=== PATIENT | male | born 1965 | race Hispanic/Latino ===

== ENCOUNTER 2017-09-17 19:38 | Emergency (ER) | payer OTHER ==
--- NOTE | 2017-09-17 20:21 | ER ---
Nurse's Notes [facility] Name: Christopher Cruz Age: 52 yrs Sex: Male : 1965 Arrival Date: 09/17/2017 Time: 19:42 Bed 12 Private MD: Diagnosis: Tooth Pain Presentation: 09/17 20:04 Presenting complaint: Patient states: Right upper tooth pain since last night. Broken aj tooth noted. No swelling at this time. Transition of care: patient was not received from another setting of care. Onset of symptoms was September 16, 2017. Initial Sepsis Screen: Does the patient meet any 2 criteria? No. Patient's initial sepsis screen is negative. Does the patient have a suspected source of infection? No. Patient's initial sepsis screen is negative. Care prior to arrival: None. 20:04 Method Of Arrival: Ambulatory aj 20:04 Acuity: MONICA 5 aj Triage Assessment: 20:05 General: Appears in no apparent distress. comfortable, Behavior is calm, cooperative, aj appropriate for age. Pain: Complains of pain in face and upper right third molar. EENT: Reports pain in mouth. Neuro: Level of Consciousness is awake, alert, obeys commands, Oriented to person, place, time, situation, Appropriate for age. Respiratory: Airway is patent Respiratory effort is even, unlabored, Respiratory pattern is regular, symmetrical. Derm: Skin is intact, is healthy with good turgor, Skin is pink, warm \T\ dry. normal. Historical: - Allergies: 20:05 No Known Allergies; aj - Home Meds: 20:05 buspirone 15 mg Oral tab 1 tab 2 times per day [Active]; duloxetine 30 mg Oral cpDR 1 aj cap 3 times [Active]; furosemide 20 mg Oral tab 1 tab once daily [Active]; pravastatin 40 mg Oral tab 1 tab once daily [Active]; gabapentin 300 mg Oral cap 1 cap 3 times per day [Active]; tizanidine 4 mg Oral cap 1 cap 3 times per day [Active]; - PMHx: 20:05 Diabetes - IDDM; Hypertension; aj - PSHx: 20:05 None; aj - Immunization history:: Adult Immunizations up to date. - Social history:: Smoking status: Patient uses tobacco products, denies chronic smoking, but will smoke occasionally. Screenin:39 Abuse screen: Denies threats or abuse. Denies injuries from another. Nutritional aj screening: No deficits noted. Tuberculosis screening: No symptoms or risk factors identified. Fall Risk None identified. Assessment: 20:39 Reassessment: see triage. aj Vital Signs: 20:05 BP 106 / 65; Pulse 88; Resp 17; Temp 98.3; Pulse Ox 96% on R/A; Weight 108.86 kg; aj Height 5 ft. 7 in. (170.18 cm); Pain 8/10; 20:05 Body Mass Index 37.59 (108.86 kg, 170.18 cm) aj ED Course: 19:42 Patient arrived in ED. ds1 20:04 Triage completed. aj 20:05 Arm band placed on left wrist. Patient placed in waiting room. aj 20:08 Driss Ward PA is PHCP. cp 20:08 Danilo Petersen MD is Attending Physician. cp 20:20 Santi Gonzalez DDS is Referral Physician. cp 20:39 Suri Olivares RN is Primary Nurse. aj 20:39 Patient has correct armband on for positive identification. aj 20:39 No provider procedures requiring assistance completed. Patient did not have IV access aj during this emergency room visit. Administered Medications: No medications were administered Outcome: 20:21 Discharge ordered by MD. cp 20:39 Discharged to home ambulatory, with family. aj 20:39 Condition: good 20:39 Discharge instructions given to patient, Instructed on discharge instructions, follow up and referral plans. medication usage, Demonstrated understanding of instructions, follow-up care, medications, Prescriptions given X 2. 20:39 Patient left the ED. aj Signatures: Suri Olivares, RN RN Gabriela Cho ds1 Driss Ward PA PA cp
--- NOTE | 2017-09-17 20:22 | EDPHYS ---
Physician Documentation [facility] Name: Christopher Cruz Age: 52 yrs Sex: Male : 1965 Arrival Date: 09/17/2017 Time: 19:42 Bed 12 Private MD: ED Physician Danilo Petersen HPI: 09/17 20:19 This 52 yrs old Male presents to ER via Ambulatory with complaints of cp Toothache. 20:19 The patient presents with pain. The problem is located in the upper right molar. Onset: cp The symptoms/episode began/occurred yesterday. Duration: The symptoms are continuous, and are unchanged since they started. Associated signs and symptoms: Pertinent negatives: anorexia, chills, dysphagia, fever, inability to eat. Historical: - Allergies: 20:05 No Known Allergies; aj - Home Meds: 20:05 buspirone 15 mg Oral tab 1 tab 2 times per day [Active]; duloxetine 30 mg Oral cpDR 1 aj cap 3 times [Active]; furosemide 20 mg Oral tab 1 tab once daily [Active]; pravastatin 40 mg Oral tab 1 tab once daily [Active]; gabapentin 300 mg Oral cap 1 cap 3 times per day [Active]; tizanidine 4 mg Oral cap 1 cap 3 times per day [Active]; - PMHx: 20:05 Diabetes - IDDM; Hypertension; aj - PSHx: 20:05 None; aj - Immunization history:: Adult Immunizations up to date. - Social history:: Smoking status: Patient uses tobacco products, denies chronic smoking, but will smoke occasionally. ROS: 20:20 Constitutional: Negative for body aches, chills, fever, poor PO intake. cp 20:20 Eyes: Negative for injury, pain, redness, and discharge. cp 20:20 ENT: Positive for dental pain, Negative for drainage from ear(s), ear pain, sore throat, difficulty swallowing, difficulty handling secretions. 20:20 Neck: Negative for pain with movement, pain at rest, stiffness, swollen nodes. 20:20 Respiratory: Negative for cough, shortness of breath, wheezing. 20:20 Abdomen/GI: Negative for abdominal pain, vomiting, diarrhea, constipation. 20:20 Skin: Negative for cellulitis, rash. 20:20 Neuro: Positive for headache, Negative for dizziness, weakness. 20:20 All other systems are negative. Exam: 20:20 Constitutional: The patient appears in no acute distress, alert, awake, non-toxic, well cp developed, well nourished. 20:20 Head/Face: Normocephalic, atraumatic. cp 20:20 Eyes: Periorbital structures: appear normal, Pupils: equal, round, and reactive to light and accomodation, Conjunctiva: normal, no exudate, no injection, Lids and lashes: appear normal, bilaterally. 20:20 ENT: External ear(s): are unremarkable, Ear canal(s): are normal, clear, TM's: dullness, bilaterally, Nose: is normal, Mouth: Lips: moist, Oral mucosa: pink and intact, moist, Tongue: is normal, abscess, is not appreciated, Posterior pharynx: Airway: no evidence of obstruction, patent, Tonsils: are normal in appearance, Uvula: midline, non-edematous, no erythema, swelling, is not appreciated, erythema, is not appreciated, exudate, is not appreciated, Dental exam: abscess, is not appreciated, dental caries, that is moderate, diffusely, fractured teeth are noted, diffusely, gum swelling, that is mild, specifically in the right upper molar area, missing teeth, diffusely, pain, that is mild, specifically in the upper right second molar (#2), Voice: is normal. 20:20 Neck: ROM/movement: is normal, is supple, without pain, no range of motions limitations, no nuchal rigidity, Lymph nodes: no appreciated lymphadenopathy. 20:20 Chest/axilla: Inspection: normal, Palpation: is normal, no crepitus, no tenderness. 20:20 Cardiovascular: Rate: normal, Rhythm: regular. 20:20 Respiratory: the patient does not display signs of respiratory distress, Respirations: normal, no use of accessory muscles, no retractions, no splinting, no tachypnea, labored breathing, is not present, Breath sounds: are clear throughout, no decreased breath sounds, no stridor, no wheezing. 20:20 Abdomen/GI: Exam negative for discomfort, distension, guarding, Inspection: abdomen appears normal. 20:20 Skin: cellulitis, is not appreciated, no rash present. Vital Signs: 20:05 BP 106 / 65; Pulse 88; Resp 17; Temp 98.3; Pulse Ox 96% on R/A; Weight 108.86 kg; aj Height 5 ft. 7 in. (170.18 cm); Pain 8/10; 20:05 Body Mass Index 37.59 (108.86 kg, 170.18 cm) aj MDM: 20:08 Patient medically screened. cp 20:20 Differential diagnosis: dental caries, gingivitis, dental abscess, pericoronitis, cp gingivostomatitis. 20:21 Data reviewed: vital signs, nurses notes, and as a result, I will discharge patient. cp Administered Medications: No medications were administered Disposition: 09/17/17 20:21 Discharged to Home. Impression: Tooth Pain. - Condition is Stable. - Discharge Instructions: Dental Pain. - Prescriptions for Amoxicillin 875 mg Oral Tablet - take 1 tablet by ORAL route every 12 hours for 10 days; 20 tablet. Naprosyn 500 mg Oral Tablet - take 1 tablet by ORAL route 2 times per day take with food; 20 tablet. - Medication Reconciliation Form, Thank You Letter, Antibiotic Education, Prescription Opioid Use form. - Follow up: Santi Gonzalez DDS; When: 1 - 2 days; Reason: Recheck today's complaints. - Problem is new. - Symptoms are unchanged. Addendum: 09/22/2017 10:45 Co-signature as Attending Physician, Danilo Petersen MD. g s Signatures: Suri Olivares, RN RN Driss Pat PA PA cp Starr, Gregory, MD MD
[2017-09-17 20:45] VITALS: BP 106/65; TEMP 98.3; O2SAT 96
== END 2017-09-17 20:39 | disposition home or self-care (01) ==
LOC: ER 19:38
DX: K08.89 Other specified disorders of teeth and supporting structures (principal); I10 Essential (primary) hypertension; E11.9 Type 2 diabetes mellitus without complications; Z72.0 Tobacco use
CPT/HCPCS: 99282

== ENCOUNTER 2018-01-08 08:53 | Emergency (ER) | payer OTHER ==
[2018-01-08] MEDS ORDERED: NA CHLORIDE 0.9% 2,000 ML ONE (09:18)
[2018-01-08 09:41] LABS: Absolute Lymphocytes (CBC) 3.2 K/uL (0.7-4.9); Absolute Monocytes 0.8 K/uL (0.1-1.3); Absolute Neutrophil 6.9 K/uL (1.8-8.0); Basophils % 0.5 % (0-1.3); Eosinophils % 1.3 % (0-4.4); Hematocrit 43.7 % (39.6-49.0); Lymphocytes % 28.9 % (15.3-44.8); MCH 28.6 pg (27.0-35.0); MCV 84.7 fL (80-100); MPV 8.5 fL (7.6-11.3); Monocytes % 7.6 % (3.3-12.3); RBC Red Blood Cell Count 5.16 M/uL (4.33-5.43)
[2018-01-08 09:47] LABS: Protime INR 0.98
[2018-01-08 10:02] LABS: Albumin 3.5 g/dL (3.4-5.0); Bilirubin Total 0.5 mg/dL (0.2-1.0); Magnesium 2.7 mg/dL (1.8-2.4); Potassium 5.3 mmol/L (3.5-5.1); Protein, Total 7.8 g/dL (6.4-8.2)
--- NOTE | 2018-01-08 11:01 | RAD REPORT ---
EXAM DESCRIPTION: RAD - Chest Single View - 01/08/2018 9:25 am CLINICAL HISTORY: Cough and congestion COMPARISON: March 2017 TECHNIQUE: AP portable chest image was obtained 0921 hours . FINDINGS: Lungs are clear. Lung markings are similar to comparison. Heart and vasculature are normal . No measurable pleural effusion and no pneumothorax. No gross bony abnormality seen. No acute aortic findings suspected. IMPRESSION: No acute cardiopulmonary process. No significant interval change.
[2018-01-08] MEDS ORDERED: ACETAMINOPHEN 325 MG TABLET ONE (12:36)
--- NOTE | 2018-01-08 13:20 | EDPHYS ---
Physician Documentation [facility] Name: Christopher Cruz Age: 52 yrs Sex: Male : 1965 Arrival Date: 01/08/2018 Time: 08:55 Bed 20 Private MD: Juan Mcclendon ED Physician Harsha Valle HPI: 01/08 09:15 This 52 yrs old Male presents to ER via Ambulatory with complaints of Flu ps1 Symptoms. 09:15 patient states that he has had sinus congestion for last couple of days and has not ps1 been eating or drinking. He states that he has had chills and has been bundled up under blankets. He took a shower and then felt lightheaded. He was hypotensive on arrival to ED. Does not appear in distress otherwise. Not currently symptomatic other than sinus congestion. He does have a history of IDDM and hypertension but has not taken his medication. Denies CP, tightness, pressure. . Historical: - Allergies: 09:08 No Known Allergies; em - PMHx: 09:08 Diabetes - IDDM; Hypertension; em - PSHx: 09:08 None; em - Immunization history:: Adult Immunizations up to date. - Social history:: Smoking status: Patient uses tobacco products, denies chronic smoking, but will smoke occasionally. - Ebola Screening: : Patient negative for fever greater than or equal to 101.5 degrees Fahrenheit, and additional compatible Ebola Virus Disease symptoms Patient denies exposure to infectious person Patient denies travel to an Ebola-affected area in the 21 days before illness onset No symptoms or risks identified at this time. ROS: 09:15 Cardiovascular: Negative for chest pain, palpitations, and edema, Respiratory: Negative ps1 for shortness of breath, cough, wheezing, and pleuritic chest pain, Abdomen/GI: Negative for abdominal pain, nausea, vomiting, diarrhea, and constipation, MS/Extremity: Negative for injury and deformity, Skin: Negative for injury, rash, and discoloration, Neuro: Negative for headache, weakness, numbness, tingling, and seizure. 09:15 Constitutional: Positive for body aches, chills, fever. 09:15 ENT: Positive for sinus congestion. Exam: 09:15 Constitutional: This is a well developed, well nourished patient who is awake, alert, ps1 and in no acute distress. Head/Face: Normocephalic, atraumatic. Eyes: Pupils equal round and reactive to light, extra-ocular motions intact. Lids and lashes normal. Conjunctiva and sclera are non-icteric and not injected. Chest/axilla: Normal chest wall appearance and motion. Nontender with no deformity. No lesions are appreciated. Cardiovascular: Regular rate and rhythm. No gallops, murmurs, or rubs. Normal PMI, no JVD. No pulse deficits. Respiratory: Lungs have equal breath sounds bilaterally, clear to auscultation and percussion. No rales, rhonchi or wheezes noted. No increased work of breathing, no retractions or nasal flaring. Abdomen/GI: Soft, non-tender, with normal bowel sounds. No distension or tympany. No guarding or rebound. No evidence of tenderness throughout. Skin: Warm, dry with normal turgor. Normal color with no rashes, no lesions, and no evidence of cellulitis. MS/ Extremity: Pulses equal, no cyanosis. Neurovascular intact. Full, normal range of motion. Neuro: Awake and alert, GCS 15, oriented to person, place, time, and situation. Cranial nerves II-XII grossly intact. Sensory grossly intact. Psych: Awake, alert, with orientation to person, place and time. Behavior, mood, and affect are within normal limits. Vital Signs: 09:08 BP 84 / 53; Pulse 96; Resp 18; Temp 99.0(O); Pulse Ox 100% on R/A; Weight 104.33 kg; em Height 5 ft. 7 in. (170.18 cm); Pain 0/10; 09:10 BP 87 / 53 LA Supine (auto/reg); Pulse 89 MON; em1 09:12 BP 85 / 43 LA Sitting (auto/reg); Pulse 92 MON; em1 09:15 BP 69 / 46 LA Standing (auto/reg); Pulse 95 MON; em1 09:25 BP 76 / 52; Pulse 86; Pulse Ox 96% on R/A; em 09:51 BP 86 / 55 Supine; Pulse 83; Resp 16; Pulse Ox 95% on R/A; em 10:03 BP 92 / 54; Pulse 82; Resp 15; Temp 98.6(O); Pulse Ox 94% on R/A; Pain 0/10; em 10:36 BP 116 / 67; Pulse 77; Resp 18; Pulse Ox 98% on R/A; Pain 0/10; em 11:35 BP 137 / 78; Pulse 78; Resp 18; Pulse Ox 99% on R/A; Pain 0/10; em 12:30 BP 137 / 78; Pulse 74; Resp 18; Pulse Ox 99% on R/A; em 13:30 BP 137 / 72; Pulse 73; Resp 16; Pulse Ox 98% on R/A; Pain 0/10; em 09:08 Body Mass Index 36.02 (104.33 kg, 170.18 cm) em MDM: 09:18 Patient medically screened. ps1 13:20 Data reviewed: vital signs, nurses notes. Counseling: I had a detailed discussion with ps1 the patient and/or guardian regarding: the historical points, exam findings, and any diagnostic results supporting the discharge/admit diagnosis, lab results, radiology results, the need for outpatient follow up, an staffing manager, to return to the emergency department if symptoms worsen or persist or if there are any questions or concerns that arise at home. ED course: patient received 2L NS and BP corrected and patient is currently asymptomatic. Patient stable for discharge and [facility] /. 01/08 09:13 Order name: CBC with Diff; Complete Time: 10:36 ps1 01/08 09:13 Order name: Magnesium; Complete Time: 10:36 ps1 01/08 09:13 Order name: NT PRO-BNP; Complete Time: 10:36 ps1 01/08 09:13 Order name: PT-INR; Complete Time: 10:36 ps1 01/08 09:13 Order name: Troponin (emerg Dept Use Only); Complete Time: 10:36 ps1 01/08 09:13 Order name: CMP; Complete Time: 10:36 ps1 01/08 09:13 Order name: XRAY Chest (1 view); Complete Time: 12:15 ps1 01/08 09:13 Order name: EKG; Complete Time: 09:14 ps1 01/08 09:13 Order name: Cardiac monitoring; Complete Time: 09:34 ps1 01/08 09:13 Order name: EKG - Nurse/Tech; Complete Time: 09:34 ps1 01/08 09:13 Order name: Lactate; Complete Time: 10:36 ps1 01/08 13:02 Order name: Lactate Sepsis 2 HR Follow-up; Complete Time: 13:17 EDNE 01/08 09:13 Order name: IV Saline Lock; Complete Time: :34 ps1 01/08 09:13 Order name: Labs collected and sent; Complete Time: 09:34 ps1 01/08 09:13 Order name: O2 Per Protocol; Complete Time: 09:34 ps1 01/08 09:13 Order name: O2 Sat Monitoring; Complete Time: 09:35 ps1 01/08 09:13 Order name: Orthostatic Blood Pressure; Complete Time: :34 ps1 Administered Medications: 09:34 Drug: NS 0.9% (20 ml/kg) 20 ml/kg Route: IV; Rate: 1 bolus; Site: right antecubital; em 10:45 Follow up: IV Status: Completed infusion; IV Intake: 2000ml em 12:41 Drug: Tylenol 650 mg Route: PO; em 13:34 Follow up: Response: No adverse reaction; Pain is decreased em Disposition: 01/08/18 13:19 Discharged to Home. Impression: Dehydration, Viral syndrome. - Condition is Stable. - Discharge Instructions: Dehydration, Adult. - Medication Reconciliation Form, Thank You Letter, Antibiotic Education, Prescription Opioid Use form. - Follow up: Juan Mcclendon DO; When: As needed; Reason: Recheck today's complaints, Continuance of care, Re-evaluation by your physician. Follow up: Emergency Department; When: As needed; Reason: Fever > 102 F, Trouble breathing, Worsening of condition. - Problem is new. - Symptoms are resolved. Signatures: Dispatcher [employer] EDNE Vincent Cabezas, DRAFTING ENGINEER DRAFTING ENGINEER em Harsha Valle MD MD ps1 Corrections: (The following items were deleted from the chart) 13:34 09:13 Urine Dipstick-Ancillary ordered. ps1 em 13:40 13:19 01/08/2018 13:19 Discharged to Home. Impression: Dehydration; Viral syndrome. em Condition is Stable. Forms are Medication Reconciliation Form, Thank You Letter, Antibiotic Education, Prescription Opioid Use. Follow up: Juan Mcclendon; When: As needed; Reason: Recheck today's complaints, Continuance of care, Re-evaluation by your physician. Follow up: Emergency Department; When: As needed; Reason: Fever > 102 F, Trouble breathing, Worsening of condition. Problem is new. Symptoms are resolved. ps1
--- NOTE | 2018-01-08 13:20 | ER ---
Nurse's Notes [facility] Name: Christopher Cruz Age: 52 yrs Sex: Male : 1965 Arrival Date: 01/08/2018 Time: 08:55 Bed 20 Private MD: Juan Mcclendon Diagnosis: Dehydration;Viral syndrome Presentation: 01/08 09:05 Presenting complaint: Patient states: I think I have the flu, been stuffy for the past em 2 days laying in bed, broke out in sweats, denies fever, denies pain. Transition of care: patient was not received from another setting of care. Onset of symptoms was January 06, 2018. Risk Assessment: Do you want to hurt yourself or someone else? Patient reports no desire to harm self or others. Initial Sepsis Screen: Does the patient meet any 2 criteria? HR > 90 bpm. Does the patient have a suspected source of infection? No. Patient's initial sepsis screen is negative. Care prior to arrival: None. 09:05 Method Of Arrival: Ambulatory em 09:36 Acuity: MONICA 2 la1 Triage Assessment: 09:08 General: Appears in no apparent distress. comfortable, Behavior is calm, cooperative. em Pain: Denies pain. Historical: - Allergies: 09:08 No Known Allergies; em - PMHx: 09:08 Diabetes - IDDM; Hypertension; em - PSHx: 09:08 None; em - Immunization history:: Adult Immunizations up to date. - Social history:: Smoking status: Patient uses tobacco products, denies chronic smoking, but will smoke occasionally. - Ebola Screening: : Patient negative for fever greater than or equal to 101.5 degrees Fahrenheit, and additional compatible Ebola Virus Disease symptoms Patient denies exposure to infectious person Patient denies travel to an Ebola-affected area in the 21 days before illness onset No symptoms or risks identified at this time. Screenin:10 Abuse screen: Denies threats or abuse. Nutritional screening: No deficits noted. em Tuberculosis screening: No symptoms or risk factors identified. Fall Risk None identified. Assessment: 09:05 General: Appears in no apparent distress. comfortable, Behavior is calm, cooperative, em Reports chills for 1-2 days, Denies fever. Pain: Denies pain. Neuro: Level of Consciousness is awake, alert, obeys commands, Oriented to person, place, time, situation, Reports dizziness. Cardiovascular: Denies chest pain, nausea, vomiting, Capillary refill < 3 seconds Rhythm is regular. Respiratory: Airway is patent Respiratory effort is even, unlabored, Respiratory pattern is regular, symmetrical, Breath sounds are clear bilaterally. GI: Abdomen is round. : No signs and/or symptoms were reported regarding the genitourinary system. EENT: Reports nasal congestion Denies sore throat. Derm: Skin is intact, Skin is clammy, Skin is normal. Musculoskeletal: Range of motion: intact in all extremities. 09:10 General: The previous assessment is accurate, call light remains within reach. . ss 10:00 Reassessment: Patient appears in no apparent distress at this time. Patient and/or em family updated on plan of care and expected duration. Pain level reassessed. pt BP low, pt c/o dizziness is not improved, Dr. Valle notified, new orders received. 10:35 Reassessment: Patient appears in no apparent distress at this time. Patient and/or em family updated on plan of care and expected duration. Pain level reassessed. Patient is alert, oriented x 3, equal unlabored respirations, skin warm/dry/pink. Patient states feeling better. Patient states symptoms have improved. 11:30 Reassessment: Patient appears in no apparent distress at this time. Patient and/or em family updated on plan of care and expected duration. Pain level reassessed. Patient is alert, oriented x 3, equal unlabored respirations, skin warm/dry/pink. Patient states symptoms have improved. 12:27 Reassessment: Patient appears in no apparent distress at this time. Patient and/or em family updated on plan of care and expected duration. Pain level reassessed. Patient is alert, oriented x 3, equal unlabored respirations, skin warm/dry/pink. repeated lactate, pending results, c/o of a mild headache, Dr. Valle notified Patient states feeling better. 13:31 Reassessment: Patient appears in no apparent distress at this time. Patient and/or em family updated on plan of care and expected duration. Pain level reassessed. Patient is alert, oriented x 3, equal unlabored respirations, skin warm/dry/pink. Patient denies pain at this time. Patient states feeling better. Patient states symptoms have improved. Vital Signs: 09:08 BP 84 / 53; Pulse 96; Resp 18; Temp 99.0(O); Pulse Ox 100% on R/A; Weight 104.33 kg; em Height 5 ft. 7 in. (170.18 cm); Pain 0/10; 09:10 BP 87 / 53 LA Supine (auto/reg); Pulse 89 MON; em1 09:12 BP 85 / 43 LA Sitting (auto/reg); Pulse 92 MON; em1 09:15 BP 69 / 46 LA Standing (auto/reg); Pulse 95 MON; em1 09:25 BP 76 / 52; Pulse 86; Pulse Ox 96% on R/A; em 09:51 BP 86 / 55 Supine; Pulse 83; Resp 16; Pulse Ox 95% on R/A; em 10:03 BP 92 / 54; Pulse 82; Resp 15; Temp 98.6(O); Pulse Ox 94% on R/A; Pain 0/10; em 10:36 BP 116 / 67; Pulse 77; Resp 18; Pulse Ox 98% on R/A; Pain 0/10; em 11:35 BP 137 / 78; Pulse 78; Resp 18; Pulse Ox 99% on R/A; Pain 0/10; em 12:30 BP 137 / 78; Pulse 74; Resp 18; Pulse Ox 99% on R/A; em 13:30 BP 137 / 72; Pulse 73; Resp 16; Pulse Ox 98% on R/A; Pain 0/10; em 09:08 Body Mass Index 36.02 (104.33 kg, 170.18 cm) em ED Course: 08:55 Patient arrived in ED. sb2 08:55 Juan Mcclendon DO is Private Physician. sb2 09:05 Harsha Valle MD is Attending Physician. ps1 09:05 Vincent Cabezas LVN is Primary Nurse. em 09:10 Patient has correct armband on for positive identification. Placed in gown. Bed in low em position. Call light in reach. Side rails up X2. 09:10 No provider procedures requiring assistance completed. em 09:11 Arm band placed on. em 09:22 X-ray completed. Portable x-ray completed in exam room. Patient tolerated procedure ag1 well. 09:23 XRAY Chest (1 view) In Process Unspecified. EDMS 09:36 Triage completed. la1 09:53 EKG done, by senior director of global commercial technology solutions. reviewed by Harsha Valle MD. at1 13:19 Juan Mcclednon DO is Referral Physician. ps1 13:33 IV discontinued, intact, bleeding controlled, No redness/swelling at site. Pressure em dressing applied. Administered Medications: 09:34 Drug: NS 0.9% (20 ml/kg) 20 ml/kg Route: IV; Rate: 1 bolus; Site: right antecubital; em 10:45 Follow up: IV Status: Completed infusion; IV Intake: 2000ml em 12:41 Drug: Tylenol 650 mg Route: PO; em 13:34 Follow up: Response: No adverse reaction; Pain is decreased em Intake: 10:45 IV: 2000ml; Total: 2000ml. em Outcome: 13:19 Discharge ordered by MD. ps1 13:32 Discharged to home ambulatory. em 13:32 Condition: good 13:32 Discharge instructions given to patient, Instructed on discharge instructions, follow up and referral plans. Demonstrated understanding of instructions, follow-up care. 13:40 Patient left the ED. em Signatures: Dispatcher [employer] EDMS Vincent Cabezas, PIE FILLING MIXER PIE FILLING MIXER em Loki Armenta em1 Viktoriya Choudhury RN RN ss gonzales, Amanda, regulatory affairs associate EKG Tat1 Drake Morrell RN RN la1 Tigist Santos ag1 Harsha Valle MD MD ps1 Amy Du sb2 Corrections: (The following items were deleted from the chart) 10:02 09:51 BP 86 / 55; Pulse 83bpm; Resp 16bpm; Pulse Ox 95% RA; em em
--- NOTE | 2018-01-08 13:43 | EKG ---
Test Date: 2018-01-08 Test Time: 09:30:28 Senior Information Security Consultant: KIM MEASUREMENT RESULTS: Intervals: Rate: 87 AK: 152 QRSD: 80 QT: 366 QTc: 440 [place]: P: 20 AK: 152 QRS: 44 T: 47 INTERPRETIVE STATEMENTS: Normal sinus rhythm Normal ECG Compared to ECG 03/12/2017 04:56:43 No significant changes Electronically Signed On 01-08-18 13:42:59 CDT by Srikanth Mchuhg
[2018-01-08 13:52] VITALS: TEMP 98.6
[2018-01-08 13:57] VITALS: BP 137/72; O2SAT 98
== END 2018-01-08 13:40 | disposition home or self-care (01) ==
LOC: ER 08:53
DX: E86.0 Dehydration (principal); B34.9 Viral infection, unspecified; I10 Essential (primary) hypertension; Z72.0 Tobacco use
CPT/HCPCS: 36415; 71045; 80053; 83605 ×2; 83735; 83880; 84484; 85025; 85610; 93005; 96360; 99284; J7030

== ENCOUNTER 2019-01-08 20:44 | Emergency (ER) | payer OTHER ==
--- OUTSIDE RECORDS SUMMARY | 2019-01-08 20:47 | XMS REPORT ---
:1965 [facility] Address [address] [place] [address] Dr. Haddad [address] [place] [id number] Care Team Providers Name Role Phone Unavailable Unavailable Unavailable Problems This patient has no known problems. Allergies, Adverse Reactions, Alerts This patient has no known allergies or adverse reactions. Medications This patient has no known medications.
[2019-01-08] MEDS ORDERED: NA CHLORIDE 0.9% 1,000 ML ONE ×2 (21:44→22:09)
[2019-01-08] MEDS ORDERED: TETANUS & DIPHTHERIA TOX,ADULT 0.5 ML VIAL ONE (21:44)
[2019-01-08 21:51] LABS: Absolute Lymphocytes (CBC) 3.7 K/uL (0.7-4.9); Basophils % 0.8 % (0-1.3); Hematocrit 45.8 % (39.6-49.0); Lymphocytes % 27.1 % (15.3-44.8); MPV 9.7 fL (7.6-11.3); RBC Red Blood Cell Count 5.46 M/uL (4.33-5.43)
[2019-01-08 22:03] LABS: Protime INR 0.95
[2019-01-08 22:08] LABS: ALT/SGPT 51 U/L (12-78); AST/SGOT 15 U/L (15-37); Albumin 3.6 g/dL (3.4-5.0); Alkaline Phosphatase 108 U/L (45-117); BUN Blood Urea Nitrogen 26 mg/dL (7-18); Bicarbonate 31 mmol/L (21-32); Bilirubin Direct 0.1 mg/dL (0-0.2); Bilirubin Total 0.3 mg/dL (0.2-1.0); Glucose Level 110 mg/dL (74-106); Magnesium 2.5 mg/dL (1.8-2.4); NT PRO-BNP 94 pg/mL (<125); Potassium 5.1 mmol/L (3.5-5.1); Sodium Level 141 mmol/L (136-145); Troponin (Emerg Dept Use Only) < 0.02 ng/mL (0.0-0.045)
[2019-01-08] MEDS ORDERED: ONDANSETRON 4 MG/2 ML VIAL ONE (22:09)
[2019-01-09] MEDS ORDERED: NA CHLORIDE 0.9% 1,000 ML ONE (01:10)
[2019-01-09] MEDS ORDERED: MECLIZINE HCL 12.5 MG TAB ONE (02:17)
--- NOTE | 2019-01-09 03:14 | EDPHYS ---
Physician Documentation [facility] Name: Christopher Cruz Age: 53 yrs Sex: Male : 1965 Arrival Date: 01/08/2019 Time: 20:47 Bed 8 Private MD: Juan Mcclendon ED Physician Danilo Petersen HPI: 01/08 21:30 This 53 yrs old Male presents to ER via Wheelchair with complaints of Fall pm1 Injury, Head Injury-Adult, black out,diabetic. 21:30 The patient has experienced syncope, collapsed. Onset: The symptoms/episode pm1 began/occurred today. Duration:. Context: occurred at home, occurred while the patient was standing, Just prior to the episode the patient experienced dizziness. Associated injury: Head/face: left side of the back of head, laceration. Associated signs and symptoms: Pertinent positives: diarrhea, vomiting, Pertinent negatives: chest pain, shortness of breath. The patient has not experienced similar symptoms in the past. The patient has not recently seen a physician, the patient's primary care provider is Dr. Mcclendon. Patient presenting with syncope and head laceration. He has had vomiting and diarrhea for the past 2 days. Today patient with two episodes of falling down and hitting his head. No chest pain or shortness of breath. Historical: - Allergies: 20:56 No Known Allergies; la1 - PMHx: 20:56 Diabetes - IDDM; Hypertension; la1 - Immunization history:: Adult Immunizations up to date. - Social history:: Smoking status: Patient/guardian denies using tobacco. - Ebola Screening: : No symptoms or risks identified at this time. ROS: 21:30 Constitutional: Negative for fever, chills, and weight loss, Eyes: Negative for injury, pm1 pain, redness, and discharge, ENT: Negative for injury, pain, and discharge, Neck: Negative for injury, pain, and swelling, Cardiovascular: Negative for chest pain, palpitations, and edema, Respiratory: Negative for shortness of breath, cough, wheezing, and pleuritic chest pain. 21:30 Back: Negative for injury and pain, : Negative for injury, bleeding, discharge, and swelling, MS/Extremity: Negative for injury and deformity, Skin: Negative for injury, rash, and discoloration. 21:30 Abdomen/GI: Positive for nausea, vomiting, and diarrhea, Negative for abdominal pain, constipation. 21:30 Neuro: Positive for dizziness, Negative for headache, numbness, tingling. Exam: 21:30 Abdomen/GI: Inspection: abdomen appears normal, Bowel sounds: normal, Palpation: pm1 abdomen is soft and non-tender. 21:30 Constitutional: This is a well developed, well nourished patient who is awake, alert, and in no acute distress. 21:30 Eyes: Pupils equal round and reactive to light, extra-ocular motions intact. Lids and lashes normal. Conjunctiva and sclera are non-icteric and not injected. Cornea within normal limits. Periorbital areas with no swelling, redness, or edema. ENT: Nares patent. No nasal discharge, no septal abnormalities noted. Tympanic membranes are normal and external auditory canals are clear. Oropharynx with no redness, swelling, or masses, exudates, or evidence of obstruction, uvula midline. Mucous membranes moist. Neck: Trachea midline, no thyromegaly or masses palpated, and no cervical lymphadenopathy. Supple, full range of motion without nuchal rigidity, or vertebral point tenderness. No Meningismus. Chest/axilla: Normal chest wall appearance and motion. Nontender with no deformity. No lesions are appreciated. Cardiovascular: Regular rate and rhythm with a normal S1 and S2. No gallops, murmurs, or rubs. Normal PMI, no JVD. No pulse deficits. Respiratory: Lungs have equal breath sounds bilaterally, clear to auscultation and percussion. No rales, rhonchi or wheezes noted. No increased work of breathing, no retractions or nasal flaring. Abdomen/GI: Soft, non-tender, with normal bowel sounds. No distension or tympany. No guarding or rebound. No evidence of tenderness throughout. Back: No spinal tenderness. No costovertebral tenderness. Full range of motion. Skin: Warm, dry with normal turgor. Normal color with no rashes, no lesions, and no evidence of cellulitis. MS/ Extremity: Pulses equal, no cyanosis. Neurovascular intact. Full, normal range of motion. 21:30 Head/face: Noted is no obvious of injury or deformity except a laceration(s), that is linear, of the left side of the back of head. 21:30 Neuro: Orientation: is normal, Motor: is normal, moves all fours, Sensation: is normal, no obvious gross deficits. Vital Signs: 20:56 BP 79 / 64; Pulse 104; Resp 16; Temp 97.5; Pulse Ox 98% on R/A; la1 21:22 BP 102 / 85; Pulse 96; Resp 17 S; Pulse Ox 97% on R/A; jd3 21:30 BP 107 / 71 Supine; Pulse 98; jd3 21:30 BP 95 / 64 Sitting; Pulse 100; jd3 21:30 BP 58 / 42 Standing; Pulse 104; jd3 22:22 BP 115 / 65; Pulse 95; Resp 19 S; Pulse Ox 100% on R/A; jd3 23:15 BP 101 / 71; Pulse 95; Resp 13 S; Pulse Ox 100% on R/A; jd3 08 00:12 BP 112 / 61; Pulse 99; Resp 15 S; Pulse Ox 99% on R/A; jd3 00:48 BP 118 / 58 Supine; Pulse 97; Resp 20 S; Pulse Ox 98% on R/A; cc3 00:49 BP 104 / 74 Sitting; Pulse 102; Resp 20 S; Pulse Ox 96% on R/A; cc3 00:50 BP 97 / 61; Pulse 102; Resp 18 S; Pulse Ox 100% on R/A; cc3 02:20 BP 115 / 69 Standing; Pulse 100; Resp 19 S; Pulse Ox 100% on R/A; jd3 04:08 BP 143 / 76 Supine; Pulse 95; Resp 18 S; Pulse Ox 98% on R/A; Pain 0/10; jd3 05:50 BP 155 / 88; Pulse 101; Resp 17 S; Pulse Ox 97% on R/A; Pain 0/10; jd3 Laceration: 02:18 Wound Repair of 3cm ( 1.2in ) subcutaneous laceration to left parietal area. Linear pm1 shaped.. Distal neuro/vascular/tendon intact. Wound prep: Extensive cleansing with hibiclenz by me, Wound explored extensively, Copious irrigation. Skin closed with 4 1-0 Cheri using simple sutures and sterile technique. Patient tolerated well. MDM: 01/08 21:30 Patient medically screened. pm1 01/09 00:15 Data reviewed: vital signs. Data interpreted: Pulse oximetry: on room air is 99 %. pm1 Interpretation: normal. 01:05 ED course: Patient reports some dizziness with standing. Will give the patient pm1 additional IV fluids. 02:19 Counseling: I had a detailed discussion with the patient and/or guardian regarding: the pm1 historical points, exam findings, and any diagnostic results supporting the discharge/admit diagnosis, lab results, radiology results. 03:30 ED course: Patient's standing blood pressure within normal limits and patient able to pm1 ambulate with steady gait. Patient with some dizziness that I appear to be related to concussive symptoms since his dehydration from vomiting and diarrhea are resolved. Patient without any vomiting or diarrhea in the ED. Improvement in his dizziness with meclizine, therefore I will send him home with meclizine and zofran. 01/08 21:29 Order name: Basic Metabolic Panel; Complete Time: 22:38 pm1 01/08 21:29 Order name: CBC with Diff; Complete Time: 22:08 pm01/08 21:29 Order name: LFT's; Complete Time: 22:38 pm01/08 21:29 Order name: Magnesium; Complete Time: 22:38 pm01/08 21:29 Order name: NT PRO-BNP; Complete Time: 22:38 pm01/08 21:29 Order name: PT-INR; Complete Time: 22:38 pm01/08 21:29 Order name: CT Head C Spine pm1 01/08 21:29 Order name: Troponin (emerg Dept Use Only); Complete Time: 22:38 pm01/08 21:29 Order name: XRAY Chest (1 view) pm01/08 21:29 Order name: Flu; Complete Time: 22:38 pm01/08 21:29 Order name: Orthostatic Blood Pressure; Complete Time: 22:14 pm01/08 21:29 Order name: EKG; Complete Time: 21:33 pm01/08 21:29 Order name: Cardiac monitoring; Complete Time: 21:32 pm01/08 21:29 Order name: EKG - Nurse/Tech; Complete Time: 21:40 pm01/08 21:29 Order name: IV Saline Lock; Complete Time: 21:40 pm01/08 21:29 Order name: Labs collected and sent; Complete Time: 21:40 pm01/08 21:29 Order name: O2 Per Protocol; Complete Time: 21:32 pm1 01/08 21:29 Order name: O2 Sat Monitoring; Complete Time: 21:32 pm1 01/09 00:15 Order name: Orthostatics; Complete Time: 00:51 pm1 Administered Medications: 01/08 22:13 Drug: Tetanus-Diphtheria Toxoid Adult 0.5 ml {Electronics Design Engineer: [place]. Exp: jd3 08/21/2020. Lot #: [id number]. } Route: IM; Site: right deltoid; 23:10 Follow up: Response: No adverse reaction jd3 22:13 Drug: NS 0.9% 1000 ml Route: IV; Rate: 1000 ml; Site: left antecubital; jd3 01/09 01:35 Follow up: Response: No adverse reaction; IV Status: Completed infusion; IV Intake: jd3 1000ml 01/08 22:13 Drug: Zofran 4 mg Route: IVP; Site: left antecubital; jd3 23:10 Follow up: Response: No adverse reaction jd3 22:14 Drug: NS 0.9% 1000 ml Route: IV; Rate: 1000 ml; Site: left antecubital; jd3 01/09 00:43 Follow up: Response: No adverse reaction; IV Status: Completed infusion; IV Intake: jd3 1000ml 01:11 Drug: NS 0.9% 1000 ml Route: IV; Rate: 1000 ml; Site: left antecubital; jd3 02:19 Follow up: Response: No adverse reaction; IV Status: Completed infusion; IV Intake: jd3 1000ml 02:19 Drug: Meclizine 50 mg Route: PO; jd3 03:00 Follow up: Response: No adverse reaction j Disposition: 19:30 Co-signature as Attending Physician, Danilo Petersen MD. Disposition: 01/09/19 03:13 Discharged to Home. Impression: Dehydration, Superficial injury of head, Syncope and collapse, Vomiting, Diarrhea, unspecified. - Condition is Stable. - Discharge Instructions: Food Choices to Help Relieve Diarrhea, Adult, Dehydration, Adult, Head Injury, Adult, Syncope, Viral Gastroenteritis, Adult, Rehydration, Adult. - Prescriptions for Meclizine 25 mg Oral Tablet - take 1 tablet by ORAL route every 8 hours As needed; 30 tablet. Zofran 4 mg Oral Tablet - take 1 tablet by ORAL route every 12 hours As needed; 20 tablet. - Medication Reconciliation Form, Thank You Letter, Antibiotic Education, Prescription Opioid Use form. - Follow up: Emergency Department; When: As needed; Reason: Worsening of condition. Follow up: Private Physician; When: 2 - 3 days; Reason: Recheck today's complaints, Continuance of care, Re-evaluation by your physician. - Problem is new. - Symptoms have improved. Signatures: Dispatcher [employer] EDMS Drake Morrell RN RN la1 Martinez Clemente NP TRACK SWEEPER pm1 Danilo Petersen MD MD gs Davies, Jonathon, RN RN jd3 Corrections: (The following items were deleted from the chart) 05:52 03:13 01/09/2019 03:13 Discharged to Home. Impression: DehydrationSuperficial injury of jd3 head; Syncope and collapse; Vomiting; Diarrhea, unspecified. Condition is Stable. Forms are Medication Reconciliation Form, Thank You Letter, Antibiotic Education, Prescription Opioid Use. Follow up: Emergency Department; When: As needed; Reason: Worsening of condition. Follow up: Private Physician; When: 2 - 3 days; Reason: Recheck today's complaints, Continuance of care, Re-evaluation by your physician. Problem is new. Symptoms have improved. pm1
--- NOTE | 2019-01-09 03:14 | ER ---
Nurse's Notes [facility] Name: Christopher Cruz Age: 53 yrs Sex: Male : 1965 Arrival Date: 01/08/2019 Time: 20:47 Bed 8 Private MD: Juan Mcclendon Diagnosis: Superficial injury of head;Syncope and collapse;Dehydration;Vomiting;Diarrhea, unspecified Presentation: 01/08 20:56 Presenting complaint: Patient states: I have been feeling real sick with nausea, la1 vomiting, I fell twice today and both times I passed out but the second time I passed out before I fell. Transition of care: patient was not received from another setting of care. Onset of symptoms was January 08, 2019. Risk Assessment: Do you want to hurt yourself or someone else? Patient reports no desire to harm self or others. Initial Sepsis Screen: Does the patient meet any 2 criteria? Mean Arterial Pressure (MAP) < 65. HR > 90 bpm. Yes Does the patient have a suspected source of infection? No. Patient's initial sepsis screen is negative. Care prior to arrival: None. 20:56 Method Of Arrival: Wheelchair la1 20:56 Acuity: MONICA 2 la1 Historical: - Allergies: 20:56 No Known Allergies; la1 - PMHx: 20:56 Diabetes - IDDM; Hypertension; la1 - Immunization history:: Adult Immunizations up to date. - Social history:: Smoking status: Patient/guardian denies using tobacco. - Ebola Screening: : No symptoms or risks identified at this time. Screenin:29 Abuse screen: Denies threats or abuse. Nutritional screening: No deficits noted. jd3 Tuberculosis screening: No symptoms or risk factors identified. Fall Risk Ambulatory Aid- None/Bed Rest/Nurse Assist (0 pts). Gait- Normal/Bed Rest/Wheelchair (0 pts) Mental Status- Oriented to own ability (0 pts). Total Gallardo Fall Scale indicates No Risk (0-24 pts). Assessment: 21:28 General: Appears uncomfortable, Behavior is calm, cooperative, appropriate for age. jd3 Pain: Complains of pain in left parietal area Quality of pain is described as aching, pressure. Neuro: Level of Consciousness is awake, obeys commands, lethargic, Oriented to person, place, time, situation, Speech is normal, Pupils are PERRLA. Cardiovascular: Heart tones S1 S2 present Capillary refill < 3 seconds Patient's skin is warm and dry. Respiratory: Airway is patent Respiratory effort is even, unlabored, Respiratory pattern is regular, symmetrical, Breath sounds are clear bilaterally. GI: Bowel sounds present X 4 quads. Abd is soft X 4 quads Abdomen is tender to palpation X 4 quads. Reports diarrhea, nausea. : No signs and/or symptoms were reported regarding the genitourinary system. EENT: No signs and/or symptoms were reported regarding the EENT system. Derm: Skin is intact, Skin is dry, Skin is normal, Skin temperature is warm. Musculoskeletal: Circulation, motion, and sensation intact. Range of motion: intact in all extremities. 22:24 Reassessment: No changes from previously documented assessment. Patient and/or family jd3 updated on plan of care and expected duration. Pain level reassessed. Patient is alert, oriented x 3, equal unlabored respirations, skin warm/dry/pink. 23:14 Reassessment: Patient appears in no apparent distress at this time. Patient and/or jd3 family updated on plan of care and expected duration. Pain level reassessed. Patient is alert, oriented x 3, equal unlabored respirations, skin warm/dry/pink. patient is less lethargic reports feeling better. Patient states symptoms have improved. 01/09 00:12 Reassessment: Patient appears in no apparent distress at this time. Patient and/or jd3 family updated on plan of care and expected duration. Pain level reassessed. Patient is alert, oriented x 3, equal unlabored respirations, skin warm/dry/pink. Patient states feeling better. 01:12 Reassessment: Patient appears in no apparent distress at this time. Patient and/or jd3 family updated on plan of care and expected duration. Pain level reassessed. Patient is alert, oriented x 3, equal unlabored respirations, skin warm/dry/pink. ambulated the patient. patient reports dizziness and has unsteady gait when ambulating, provider notified. Patient states feeling better. 02:20 Reassessment: Patient appears in no apparent distress at this time. Patient and/or jd3 family updated on plan of care and expected duration. Pain level reassessed. Patient is alert, oriented x 3, equal unlabored respirations, skin warm/dry/pink. reporting continued dizziness when standing. Patient states feeling better. 03:10 Reassessment: Patient appears in no apparent distress at this time. Patient and/or cc3 family updated on plan of care and expected duration. Pain level reassessed. Patient is alert, oriented x 3, equal unlabored respirations, skin warm/dry/pink. Assisted the patient to walk around, he walked in steady gait and said he don't feel dizzy while walking but when he came back to his room he said he "feels dizzy big time", PORTILLO Clemente informed and he talked to the patient. PORTILLO Clemente said he'll discharge the patient home but the patient requesting to stay until 0600H in the morning until his picks him up. 04:08 Reassessment: Patient appears in no apparent distress at this time. Patient and/or jd3 family updated on plan of care and expected duration. Pain level reassessed. Patient is alert, oriented x 3, equal unlabored respirations, skin warm/dry/pink. pt resting in bed until his ride can come to pick him up for discharge. Patient states feeling better. 05:02 Reassessment: Patient appears in no apparent distress at this time. No changes from jd3 previously documented assessment. Patient and/or family updated on plan of care and expected duration. Pain level reassessed. Patient is alert, oriented x 3, equal unlabored respirations, skin warm/dry/pink. pt resting in bed with eyes closed, even and unlabored respirations. awaiting ride for discharge. 05:50 Reassessment: Patient appears in no apparent distress at this time. Patient and/or jd3 family updated on plan of care and expected duration. Pain level reassessed. Patient is alert, oriented x 3, equal unlabored respirations, skin warm/dry/pink. pt reported understanding of discharge instructions. even and steady gait to the lobby to wait fo a ride. Patient states feeling better. Vital Signs: 01/08 20:56 BP 79 / 64; Pulse 104; Resp 16; Temp 97.5; Pulse Ox 98% on R/A; la1 21:22 BP 102 / 85; Pulse 96; Resp 17 S; Pulse Ox 97% on R/A; jd3 21:30 BP 107 / 71 Supine; Pulse 98; jd3 21:30 BP 95 / 64 Sitting; Pulse 100; jd3 21:30 BP 58 / 42 Standing; Pulse 104; jd3 22:22 BP 115 / 65; Pulse 95; Resp 19 S; Pulse Ox 100% on R/A; jd3 23:15 BP 101 / 71; Pulse 95; Resp 13 S; Pulse Ox 100% on R/A; jd3 08 00:12 BP 112 / 61; Pulse 99; Resp 15 S; Pulse Ox 99% on R/A; jd3 00:48 BP 118 / 58 Supine; Pulse 97; Resp 20 S; Pulse Ox 98% on R/A; cc3 00:49 BP 104 / 74 Sitting; Pulse 102; Resp 20 S; Pulse Ox 96% on R/A; cc3 00:50 BP 97 / 61; Pulse 102; Resp 18 S; Pulse Ox 100% on R/A; cc3 02:20 BP 115 / 69 Standing; Pulse 100; Resp 19 S; Pulse Ox 100% on R/A; jd3 04:08 BP 143 / 76 Supine; Pulse 95; Resp 18 S; Pulse Ox 98% on R/A; Pain 0/10; jd3 05:50 BP 155 / 88; Pulse 101; Resp 17 S; Pulse Ox 97% on R/A; Pain 0/10; jd3 ED Course: 01/08 20:47 Patient arrived in ED. es 20:48 Juan Mcclendon DO is Private Physician. es 20:58 Triage completed. la1 20:58 Arm band placed on left wrist. la1 21:21 Lionel Curtis, PETRA is Primary Nurse. jd3 21:22 Martinez Clemente NP is PHCP. pm1 21:22 Danilo Petersen MD is Attending Physician. pm1 21:30 Patient has correct armband on for positive identification. Bed in low position. Call j light in reach. Side rails up X 1. alarm security or surveillance monitor on. Pulse ox on. NIBP on. 21:40 Initial lab(s) drawn, by me, sent to lab. Flu and/or RSV swab sent to lab. Inserted lt1 saline lock: 20 gauge in right antecubital area, using aseptic technique. 21:42 Flu Sent. lt1 22:32 XRAY Chest (1 view) In Process Unspecified. EDMS 23:14 Warm blanket given. Pillow given. jd3 01/09 00:13 No provider procedures requiring assistance completed. jd3 05:51 IV discontinued, intact, bleeding controlled, No redness/swelling at site. Pressure jd3 dressing applied. Administered Medications: 01/08 22:13 Drug: Tetanus-Diphtheria Toxoid Adult 0.5 ml {[facility] Pharm[facility]: [facility]. Exp: jd3 08/21/2020. Lot #: [id number]. } Route: IM; Site: right deltoid; 23:10 Follow up: Response: No adverse reaction jd3 22:13 Drug: NS 0.9% 1000 ml Route: IV; Rate: 1000 ml; Site: left antecubital; jd3 01/09 01:35 Follow up: Response: No adverse reaction; IV Status: Completed infusion; IV Intake: jd3 1000ml 01/08 22:13 Drug: Zofran 4 mg Route: IVP; Site: left antecubital; jd3 23:10 Follow up: Response: No adverse reaction jd3 22:14 Drug: NS 0.9% 1000 ml Route: IV; Rate: 1000 ml; Site: left antecubital; jd3 01/09 00:43 Follow up: Response: No adverse reaction; IV Status: Completed infusion; IV Intake: jd3 1000ml 01:11 Drug: NS 0.9% 1000 ml Route: IV; Rate: 1000 ml; Site: left antecubital; jd3 02:19 Follow up: Response: No adverse reaction; IV Status: Completed infusion; IV Intake: jd3 1000ml 02:19 Drug: Meclizine 50 mg Route: PO; jd3 03:00 Follow up: Response: No adverse reaction jd3 Intake: 00:43 IV: 1000ml; Total: 1000ml. jd3 01:35 IV: 1000ml; Total: 2000ml. jd3 02:19 IV: 1000ml; Total: 3000ml. jd3 Outcome: 03:13 Discharge ordered by . pm1 05:51 Discharged to home ambulatory. jd3 05:51 Condition: stable 05:51 Discharge instructions given to patient, Instructed on discharge instructions, follow up and referral plans. medication usage, Demonstrated understanding of instructions, follow-up care, medications, Prescriptions given X 2. 05:52 Patient left the ED. jd3 Signatures: Dispatcher Med[employer] Ana Maguire Lee, RN RN la1 Martinez Clemente, SEQUINS SPOOLER SEQUINS SPOOLER pm1 Lionel Curtis RN RN jd3 Rebekah Longoria cc3 Julia Cartagena lt1 Corrections: (The following items were deleted from the chart) 01/08 22:24 21:28 General: Appears in no apparent distress. uncomfortable, Behavior is calm, jd3 cooperative, appropriate for age, jd3 22:24 21:28 Neuro: Level of Consciousness is awake, alert, obeys commands, Oriented to jd3 person, place, time, situation, Speech is normal, Pupils are PERRLA, jd3
[2019-01-09 05:58] VITALS: TEMP 97.5
[2019-01-09 06:12] VITALS: BP 155/88; O2SAT 97
--- NOTE | 2019-01-09 09:11 | RAD REPORT ---
EXAM DESCRIPTION: RAD - Chest Single View - 01/08/2019 10:28 pm CLINICAL HISTORY: Syncope, abdominal pain COMPARISON: December 2017 TECHNIQUE: AP portable chest image was obtained 2207 hours . FINDINGS: Low lung volumes are noted. No peripheral mass or consolidation. Heart, vasculature and reina ng markings are all accentuated by portable technique, large body habitus and shallow inspiration. Ca rdiomegaly is not suspected. Significant failure or volume overload not suspected. No measurable pleu ral effusion and no pneumothorax. No acute bony abnormality seen. No acute aortic findings suspected. IMPRESSION: Limited portable study felt be without acute cardiopulmonary finding. The heart, vasculature and lung markings are all accentuated by shallow inspiration.
--- NOTE | 2019-01-09 10:20 | EKG ---
Test Date: 2019-01-08 Test Time: 21:40:21 Box Lining Machine Operator: RALEIGH MEASUREMENT RESULTS: Intervals: Rate: 97 MS: 140 QRSD: 82 QT: 346 QTc: [address]: P: 25 MS: 140 QRS: 26 T: 43 INTERPRETIVE STATEMENTS: Normal sinus rhythm Normal ECG Compared to ECG 01/08/2018 09:30:28 No significant changes Electronically Signed On 01-09-19 10:20:10 CDT by Srikanth Mchugh
--- NOTE | 2019-01-10 11:37 | RAD REPORT ---
EXAM DESCRIPTION: CT - Head C Spine Mpr Wo Con - 01/08/2019 10:19 pm CLINICAL HISTORY: Syncope;Pain COMPARISON: None. TECHNIQUE: CT HEAD NECK WITHOUT IV CONTRAST on 01/08/2019 9:29 PM CDT This exam was performed according to our departmental dose-optimization program, which includes autom ated exposure control, adjustment of the mA and/or kV according to patient size and/or use of iterati ve reconstruction technique. FINDINGS: There is no acute hemorrhage, mass effect or midline shift. Jones-white differentiation is preserved. There is no hydrocephalus. There is no significant volume loss for age. There is left ray etal scalp soft tissue swelling. The calvarium is intact. Orbits and globes are unremarkable. The paranasal sinuses are clear. Mastoid air cells are clear. There is no acute fracture. Alignment is anatomic. Disc spaces are maintained. Vertebral body heights are preserved. Soft tissues are unremarkable. IMPRESSION: No acute fracture. No intracranial hemorrhage. Electronically signed by: Jones Lopez MD 01/08/2019 10:12 PM CDT Due to temporary technical issues with the PACS/Fluency reporting system, reports are being signed by the in house radiologist as a courtesy to ensure prompt reporting. The interpreting radiologist is f ully responsible for the content of the report.
== END 2019-01-09 05:52 | disposition home or self-care (01) ==
LOC: ER 20:44
PROC: 0JQ10ZZ Repair Face Subcutaneous Tissue and Fascia, Open Approach (ICD-10-PCS; principal; 2019-01-09)
DX: E86.0 Dehydration (principal); S01.81XA Laceration without foreign body of other part of head, initial encounter; R11.10 Vomiting, unspecified; R19.7 Diarrhea, unspecified; W19.XXXA Unspecified fall, initial encounter; Y93.89 Activity, other specified; Y92.009 Unspecified place in unspecified non-institutional (private) residence as the place of occurrence of the external cause; Z23 Encounter for immunization
CPT/HCPCS: 96361; 93005; 85025; 80048; 36415; 83735; 85610; 80076; 84484; 83880; 87804 ×2; 70450; 72125; 71045; 90471; 90714; 96374; 99284; 12013; J7030 ×3; J2405

== ENCOUNTER 2019-01-16 08:53 | Emergency (ER) | payer OTHER ==
--- OUTSIDE RECORDS SUMMARY | 2019-01-16 08:55 | XMS REPORT ---
:1965 [facility] Address [address] [place] [address] Dr. Hadadd [address] [place] [id number] Care Team Providers Name Role Phone Unavailable Unavailable Unavailable Problems This patient has no known problems. Allergies, Adverse Reactions, Alerts This patient has no known allergies or adverse reactions. Medications This patient has no known medications.
--- NOTE | 2019-01-16 09:11 | ER ---
Nurse's Notes [facility] Name: Christopher Cruz Age: 53 yrs Sex: Male : 1965 Arrival Date: 01/16/2019 Time: 08:54 Bed 14 Private MD: Juan Mcclendon Diagnosis: Encounter for removal of sutures Presentation: 01/16 09:05 Presenting complaint: Patient states: here to have sutures removed from back of head. ss Patient denies pain, states that he had sutures placed 7 days ago. Transition of care: patient was not received from another setting of care. Onset of symptoms was January 09, 2019. Risk Assessment: Do you want to hurt yourself or someone else? Patient reports no desire to harm self or others. Initial Sepsis Screen: Does the patient meet any 2 criteria? HR > 90 bpm. Does the patient have a suspected source of infection? No. Patient's initial sepsis screen is negative. Care prior to arrival: None. 09:05 Method Of Arrival: Ambulatory ss 09:05 Acuity: MONICA 5 ss Historical: - Allergies: 09:07 No Known Allergies; ss - PMHx: 09:07 Diabetes - IDDM; Hypertension; ss - Immunization history:: Adult Immunizations up to date. - Social history:: Smoking status: Patient/guardian denies using tobacco. - Ebola Screening: : Patient denies exposure to infectious person Patient denies travel to an Ebola-affected area in the 21 days before illness onset. Screenin:38 Abuse screen: Denies threats or abuse. Denies injuries from another. Nutritional ph screening: No deficits noted. Tuberculosis screening: No symptoms or risk factors identified. Fall Risk None identified. Assessment: 09:37 General: Appears in no apparent distress. comfortable, well groomed, Behavior is calm, ph cooperative, appropriate for age. Pain: Denies pain. Neuro: Level of Consciousness is awake, alert, obeys commands, Oriented to person, place, time, situation. Cardiovascular: Capillary refill < 3 seconds in bilateral fingers Patient's skin is warm and dry. Respiratory: Airway is patent Respiratory effort is even, unlabored. Derm: Skin is healthy with good turgor, Skin is pink, warm \T\ dry. Musculoskeletal: Circulation, motion, and sensation intact. Range of motion: intact in all extremities. Injury Description: healed laceration w/ approx 4 lito noted to back of head. Vital Signs: 09:07 BP 146 / 80; Pulse 111; Resp 17; Temp 97.6(TE); Pulse Ox 100% on R/A; ss 09:39 BP 132 / 78; Pulse 98; Resp 18; Temp 97.8; Pulse Ox 99% on R/A; ph ED Course: 08:54 Patient arrived in ED. rg4 08:55 Juan Mcclendon DO is Private Physician. rg4 09:03 Isadora Quinonez, RN is Primary Nurse. ph 09:04 Elyse Dejesus FNP-C is PHCP. snw 09:04 Danilo Petersen MD is Attending Physician. snw 09:06 Triage completed. ss 09:07 Arm band placed on right wrist. ss 09:09 Juan Mcclendon DO is Referral Physician. snw 09:38 Patient has correct armband on for positive identification. Placed in gown. Bed in low ph position. Call light in reach. Side rails up X 1. Pulse ox on. NIBP on. Door closed. Visitors limited. 09:39 No provider procedures requiring assistance completed. Patient did not have IV access ph during this emergency room visit. Administered Medications: No medications were administered Point of Care Testing: Blood Glucose: 09:33 Blood Glucose: 191 mg/dL; 3 Ranges: Outcome: 09:10 Discharge ordered by . snw 09:39 Discharged to home ambulatory. ph 09:39 Condition: good 09:39 Condition: good 09:39 Discharge instructions given to patient, Instructed on discharge instructions, follow up and referral plans. Demonstrated understanding of instructions, follow-up care. 09:40 Patient left the ED. ph Signatures: Elyse Dejesus FNP-C FNP-Csnw Viktoriya Choudhury RN RN Isadora Quinonez RN RN Leah Narayan 4 Janeth Angel 3
--- NOTE | 2019-01-16 09:12 | EDPHYS ---
Physician Documentation [facility] Name: Christopher Cruz Age: 53 yrs Sex: Male : 1965 Arrival Date: 01/16/2019 Time: 08:54 Bed 14 Private MD: Juan Mcclendon ED Physician Danilo Petersen HPI: 01/16 09:12 This 53 yrs old Male presents to ER via Ambulatory with complaints of Suture snw Removal. 09:12 The patient has lito on the left parietal area. Previous treatment: the care was snw rendered at [facility]. Sutures/lito progress: The patient has no c/o's. The wound is well-healing with no redness, swelling, discharge, or dehiscence reported. The patient has not experienced similar symptoms in the past. It is unknown whether or not the patient has recently seen a physician. pt states no further problems, no syncopal episodes since eval last week. Historical: - Allergies: 09:07 No Known Allergies; ss - PMHx: 09:07 Diabetes - IDDM; Hypertension; ss - Immunization history:: Adult Immunizations up to date. - Social history:: Smoking status: Patient/guardian denies using tobacco. - Ebola Screening: : Patient denies exposure to infectious person Patient denies travel to an Ebola-affected area in the 21 days before illness onset. ROS: 09:12 Constitutional: Negative for fever, chills, and weight loss, Eyes: Negative for injury, snw pain, redness, and discharge, ENT: Negative for injury, pain, and discharge, Neck: Negative for injury, pain, and swelling, Cardiovascular: Negative for chest pain, palpitations, and edema, Respiratory: Negative for shortness of breath, cough, wheezing, and pleuritic chest pain, Abdomen/GI: Negative for abdominal pain, nausea, vomiting, diarrhea, and constipation, Back: Negative for injury and pain, : Negative for injury, bleeding, discharge, and swelling, MS/Extremity: Negative for injury and deformity, Skin: Negative for injury, rash, and discoloration, Neuro: Negative for headache, weakness, numbness, tingling, and seizure. Exam: 09:12 Constitutional: This is a well developed, well nourished patient who is awake, alert, snw and in no acute distress. Eyes: Pupils equal round and reactive to light, extra-ocular motions intact. Lids and lashes normal. Conjunctiva and sclera are non-icteric and not injected. Cornea within normal limits. Periorbital areas with no swelling, redness, or edema. ENT: Nares patent. No nasal discharge, no septal abnormalities noted. Tympanic membranes are normal and external auditory canals are clear. Oropharynx with no redness, swelling, or masses, exudates, or evidence of obstruction, uvula midline. Mucous membranes moist. Neck: Trachea midline, no thyromegaly or masses palpated, and no cervical lymphadenopathy. Supple, full range of motion without nuchal rigidity, or vertebral point tenderness. No Meningismus. Chest/axilla: Normal chest wall appearance and motion. Nontender with no deformity. No lesions are appreciated. Respiratory: Lungs have equal breath sounds bilaterally, clear to auscultation and percussion. No rales, rhonchi or wheezes noted. No increased work of breathing, no retractions or nasal flaring. Abdomen/GI: Soft, non-tender, with normal bowel sounds. No distension or tympany. No guarding or rebound. No evidence of tenderness throughout. Back: No spinal tenderness. No costovertebral tenderness. Full range of motion. Skin: Warm, dry with normal turgor. Normal color with no rashes, no lesions, and no evidence of cellulitis. MS/ Extremity: Pulses equal, no cyanosis. Neurovascular intact. Full, normal range of motion. Neuro: Awake and alert, GCS 15, oriented to person, place, time, and situation. Cranial nerves II-XII grossly intact. Motor strength 5/5 in all extremities. Sensory grossly intact. Cerebellar exam normal. Normal gait. 09:12 Head/face: Noted is healed laceration without evidence of infection, 5 lito removed on assessment from occiput. 09:12 Cardiovascular: Rate: tachycardic, Rhythm: regular, Pulses: no pulse deficits are appreciated. Vital Signs: 09:07 BP 146 / 80; Pulse 111; Resp 17; Temp 97.6(TE); Pulse Ox 100% on R/A; ss 09:39 BP 132 / 78; Pulse 98; Resp 18; Temp 97.8; Pulse Ox 99% on R/A; ph MDM: 09:05 Patient medically screened. snw 09:11 Data reviewed: vital signs, nurses notes. Data interpreted: Pulse oximetry: on room air snw is 100 %. Interpretation: normal. Counseling: I had a detailed discussion with the patient and/or guardian regarding: the historical points, exam findings, and any diagnostic results supporting the discharge/admit diagnosis, the presence of at least one elevated blood pressure reading (>120/80) during this emergency department visit, the need for outpatient follow up, to return to the emergency department if symptoms worsen or persist or if there are any questions or concerns that arise at home. Response to treatment: the patient's symptoms have resolved after treatment. 01/16 09:06 Order name: MARTI; Complete Time: 09:34 snw Administered Medications: No medications were administered Point of Care Testing: Blood Glucose: 09:33 Blood Glucose: 191 mg/dL; dh3 Ranges: Critical Glucose Levels:Adult <50 mg/dl or >400 mg/dl <40 mg/dl or >180 mg/dl Disposition: 01/16/19 09:10 Discharged to Home. Impression: Encounter for removal of sutures. - Condition is Stable. - Discharge Instructions: Stitches, [place], or Adhesive Wound Closure, Incision Care, Adult, Wound Closure Removal. - Medication Reconciliation Form, Thank You Letter, Antibiotic Education, Prescription Opioid Use form. - Follow up: Juan Mcclendon DO; When: 2 - 3 days; Reason: Recheck today's complaints, Continuance of care, Re-evaluation by your physician. Follow up: Emergency Department; When: As needed; Reason: Worsening of condition. Addendum: 01/18/2019 15:18 Co-signature as Attending Physician, Danilo Petersen MD. g s Signatures: Elyse Dejesus, SOLAR ELECTRIC PRACTITIONER-C SOLAR ELECTRIC PRACTITIONER-Csnw Viktoriya Choudhury RN RN ss Hall, Patricia, RN RN Danilo Petersen MD MD Corrections: (The following items were deleted from the chart) 01/16 09:40 09:10 01/16/2019 09:10 Discharged to Home. Impression: Encounter for removal of ph sutures. Condition is Stable. Forms are Medication Reconciliation Form, Thank You Letter, Antibiotic Education, Prescription Opioid Use. Follow up: Juan Mcclendon; When: 2 - 3 days; Reason: Recheck today's complaints, Continuance of care, Re-evaluation by your physician. Follow up: Emergency Department; When: As needed; Reason: Worsening of condition. snw
[2019-01-16 10:00] VITALS: BP 132/78; TEMP 97.8; O2SAT 99
== END 2019-01-16 09:40 | disposition home or self-care (01) ==
LOC: ER 08:53
DX: Z48.02 Encounter for removal of sutures (principal)
CPT/HCPCS: 82962; 99283

== ENCOUNTER 2020-02-03 20:00 | Emergency (ER) | payer OTHER ==
--- OUTSIDE RECORDS SUMMARY | 2020-02-03 20:03 | XMS REPORT | Continuity of Care Document ---
:1965 Author Organization [facility] t Address [address] [place] [address] Care Team Providers Name Role Phone Michael Donovan PTA Attending Clinician Unavailable Problems This patient has no known problems. Allergies, Adverse Reactions, Alerts This patient has no known allergies or adverse reactions. Medications This patient has no known medications. Procedures This patient has no known procedures. Encounters Start End Encounter Admission Attending Care Care Encounter Source Date/Time Date/Time Type Type Clinicians Facility Department ID 2019-07-28 2019-08-04 Ancillary TOM Donovan [id number] 1980 15:09:42 11:48:49 Visit Faith Lozano [id number] Nithin [id number] Efrain [id number] [facility] [address] Building Results This patient has no known results.
[2020-02-03 20:48] LABS: Hematocrit 39.7 % (39.6-49.0); Lymphocytes % 22.8 % (15.3-44.8); MPV 8.8 fL (7.6-11.3); RBC Red Blood Cell Count 4.77 M/uL (4.33-5.43)
[2020-02-03] MEDS ORDERED: NA CHLORIDE 0.9% 1,000 ML ONE (20:58)
[2020-02-03 21:06] LABS: ALT/SGPT 41 U/L (12-78); AST/SGOT 14 U/L (15-37); Albumin 3.9 g/dL (3.4-5.0); Alkaline Phosphatase 117 U/L (45-117); BUN Blood Urea Nitrogen 36 mg/dL (7-18); Bicarbonate 27 mmol/L (21-32); Bilirubin Direct < 0.1 mg/dL (0-0.2); Bilirubin Total 0.3 mg/dL (0.2-1.0); Glucose Level 81 mg/dL (74-106); Lipase 110 U/L (73-393); Potassium 3.7 mmol/L (3.5-5.1); Protein, Total 8.3 g/dL (6.4-8.2); Sodium Level 143 mmol/L (136-145)
[2020-02-03] MEDS ORDERED: ACETAMINOPHEN 500 MG TAB ONE (21:13)
[2020-02-03] MEDS ORDERED: ONDANSETRON 4 MG/2 ML VIAL ONE (21:13)
[2020-02-03 22:33] LABS: Urine Blood NEGATIVE (NEG); Urine Glucose TRACE (NEG); Urine Protein 2+ (NEG); Urine Specific Gravity 1.025 (1.005-1.030)
--- NOTE | 2020-02-03 22:35 | EDPHYS ---
Physician Documentation [facility] Name: Christopher Cruz Age: 54 yrs Sex: Male : 1965 Arrival Date: 02/03/2020 Time: 20:03 Bed 17 Private MD: Juan Mcclendon ED Physician Kleber Cheatham HPI: 02/03 05:08 This 54 yrs old Male presents to ER via Ambulatory with complaints of tw4 Abdominal Pain, Headache. 05:08 The patient presents with abdominal pain. Onset: The symptoms/episode began/occurred tw4 yesterday. The symptoms do not radiate. Associated signs and symptoms: Pertinent positives: headache, nausea, Pertinent negatives: anorexia, blood in stools, chest pain, constipation, diarrhea, dysuria, fever, vomiting, vomiting blood. The symptoms are described as crampy. Modifying factors: The symptoms are alleviated by nothing, the symptoms are aggravated by nothing. The patient has not experienced similar symptoms in the past. Historical: - Allergies: 02/02 20:15 No Known Allergies; lp1 - Home Meds: 20:15 buspirone 15 mg Oral tab 1 tab 2 times per day [Active]; Trulicity subcutaneous lp1 subcutaneous [Active]; Metformin Oral [Active]; Cymbalta oral oral [Active]; aspirin 81 mg Oral TbEC 1 tab once daily [Active]; gabapentin 300 mg Oral cap 1 cap 3 times per day [Active]; Metoprolol Tartrate Oral [Active]; tizanidine 4 mg Oral cap 1 cap 3 times per day [Active]; Finley Oral [Active]; pravastatin 40 mg Oral tab 1 tab once daily [Active]; Humalog Sub-Q [Active]; - PMHx: 20:15 Diabetes - IDDM; Hypertension; neuropathy; lp1 - PSHx: 20:15 Right second toe amputation; lp1 - Immunization history:: Adult Immunizations up to date. - Social history:: Smoking status: Patient denies any tobacco usage or history of. ROS: 02/03 05:08 Constitutional: Negative for fever, chills, and weight loss, Eyes: Negative for injury, tw4 pain, redness, and discharge, Cardiovascular: Negative for chest pain, palpitations, and edema, Respiratory: Negative for shortness of breath, cough, wheezing, and pleuritic chest pain, MS/Extremity: Negative for injury and deformity, Skin: Negative for injury, rash, and discoloration, Neuro: Negative for headache, weakness, numbness, tingling, and seizure. Abdomen/GI: Positive for abdominal pain, Negative for nausea and vomiting, nausea, vomiting, and diarrhea, nausea, abdominal cramps, abdominal distension, anorexia, black/tarry stool, rectal pain, rectal bleeding. Exam: 05:08 Constitutional: This is a well developed, well nourished patient who is awake, alert, tw4 and in no acute distress. Head/Face: Normocephalic, atraumatic. Chest/axilla: Normal chest wall appearance and motion. Nontender with no deformity. No lesions are appreciated. Cardiovascular: Regular rate and rhythm with a normal S1 and S2. No gallops, murmurs, or rubs. Normal PMI, no JVD. No pulse deficits. Respiratory: Lungs have equal breath sounds bilaterally, clear to auscultation and percussion. No rales, rhonchi or wheezes noted. No increased work of breathing, no retractions or nasal flaring. Back: No spinal tenderness. No costovertebral tenderness. Full range of motion. MS/ Extremity: Pulses equal, no cyanosis. Neurovascular intact. Full, normal range of motion. Neuro: Awake and alert, GCS 15, oriented to person, place, time, and situation. Cranial nerves II-XII grossly intact. Motor strength 5/5 in all extremities. Sensory grossly intact. Cerebellar exam normal. Normal gait. 05:08 Abdomen/GI: Inspection: abdomen appears normal, Bowel sounds: diminished, Palpation: moderate abdominal tenderness, in the right lower quadrant and left lower quadrant. Vital Signs: 02/02 20:17 BP 148 / 87; Pulse 110; Resp 18; Temp 98.2(O); Pulse Ox 100% on R/A; Weight 95.25 kg lp1 (R); Height 5 ft. 7 in. (170.18 cm); Pain 4/10; 20:37 BP 128 / 81; Pulse 99; Resp 16 S; Pulse Ox 98% on R/A; ca1 21:47 BP 151 / 94; Pulse 97; Resp 16 S; Pulse Ox 100% on R/A; ca1 22:27 BP 157 / 97; Pulse 99; Resp 18; Pulse Ox 100% on R/A; lp1 20:17 Body Mass Index 32.89 (95.25 kg, 170.18 cm) lp1 MDM: 20:38 Patient medically screened. tw4 02/03 05:13 Data reviewed: vital signs, nurses notes. Data reviewed: lab test result(s), CBC, tw4 electrolytes, hepatic panel, radiologic studies, CT scan. Data interpreted: Pulse oximetry: Interpretation: normal. Counseling: I had a detailed discussion with the patient and/or guardian regarding: the historical points, exam findings, and any diagnostic results supporting the discharge/admit diagnosis, lab results, radiology results. Medication response: Zofran markedly relieved the patient's nausea. Response to treatment: and as a result, I will discharge patient. Special discussion: Based on the patient's Hx, exam, and Dx evaluation, there is no indication for emergent surgery or inpatient Tx. It is understood by the patient/guardian that if the Sx's persist or worsen they need to return immediately for re-evaluation. I discussed with the patient/guardian in detail that at this point there is no indication for admission to the hospital. It is understood, however, that if the symptoms persist or worsen the patient needs to return immediately for re-evaluation. 02/02 21:51 Order name: Urine Dipstick--Ancillary (enter results) tt3 02/02 20:49 Order name: CT Abd/Pelvis - IV Contrast Only tw4 02/02 22:20 Order name: Basic Metabolic Panel [facility] 02/02 22:20 Order name: Liver (Hepatic) Function [facility] 02/02 22:20 Order name: Lipase [facility] 02/02 22:20 Order name: CBC with Automated Diff [facility] 02/02 22:22 Order name: Abdomen [facility] 02/02 22:25 Order name: Urine Microscopic Only [facility] 02/02 22:48 Order name: Urine Culture [facility] 02/02 20:17 Order name: IV Saline Lock; Complete Time: 20:31 tw4 02/02 20:17 Order name: Labs collected and sent; Complete Time: 20:31 tw4 02/02 20:39 Order name: Urine Dipstick-Ancillary (obtain specimen); Complete Time: 21:47 tw4 Administered Medications: 02/02 20:49 Drug: NS 0.9% 1000 ml Route: IV; Rate: 1 bolus; Site: right upper arm; ca1 22:15 Follow up: IV Status: Completed infusion; IV Intake: 1000ml lp1 21:03 Drug: Zofran (Ondansetron) 4 mg Route: IVP; Site: right upper arm; ca1 21:40 Follow up: Response: No adverse reaction; Nausea is decreased ca1 21:04 Drug: Tylenol 1000 mg Route: PO; ca1 21:40 Follow up: Response: No adverse reaction; Pain is decreased ca1 22:54 Drug: Ondansetron (Zofran) 4 mg Route: PO; lp1 22:55 Follow up: Response: Medication administered at discharge. lp1 Disposition: 02/03/20 22:35 Discharged to Home. Impression: Nausea and vomiting, Abdominal tenderness. - Condition is Stable. - Discharge Instructions: Nausea, Adult, Abdominal Pain, Adult, [id number]. - Prescriptions for Bentyl 20 mg Oral Tablet - take 1 tablet by ORAL route every 6 hours As needed; 20 tablet. Zofran 4 mg Oral Tablet - take 1 tablet by ORAL route every 12 hours As needed; 20 tablet. - Medication Reconciliation Form, Thank You Letter, Antibiotic Education, Prescription Opioid Use form. - Follow up: Juan Mcclendon DO; When: Upon discharge from the Emergency Department; Reason: Recheck today's complaints, Continuance of care, Re-evaluation by your physician. Follow up: Private Physician; When: Upon discharge from the Emergency Department; Reason: Recheck today's complaints, Continuance of care, Re-evaluation by your physician. - Problem is new. - Symptoms have improved. Signatures: Dispatcher [employer] EDMary Villegas RN RN lp1 Kleber Cheatham MD MD tw4 Edelmira Adler RN RN ca1 Corrections: (The following items were deleted from the chart) 22:36 22:02 BASIC METABOLIC PANEL+C.LAB.BRZ ordered. EDMS EDMS :36 22:02 CBC+H.LAB.BRZ ordered. EDMS EDMS : 22:02 HEPATIC FUNCTION+C.LAB.BRZ ordered. EDMS EDMS :36 22:02 LIPASE+C.LAB.BRZ ordered. EDMS EDMS :36 22:02 UA MICROSCOPIC+U.LAB.BRZ ordered. EDMS EDMS 22:58 22:35 02/03/2020 22:35 Discharged to Home. Impression: Nausea and vomiting; Abdominal lp1 tenderness. Condition is Stable. Forms are Medication Reconciliation Form, Thank You Letter, Antibiotic Education, Prescription Opioid Use. Follow up: Juan Mcclendon; When: Upon discharge from the Emergency Department; Reason: Recheck today's complaints, Continuance of care, Re-evaluation by your physician. Follow up: Private Physician; When: Upon discharge from the Emergency Department; Reason: Recheck today's complaints, Continuance of care, Re-evaluation by your physician. Problem is new. Symptoms have improved. tw4
--- NOTE | 2020-02-03 22:35 | ER ---
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 Coronavirus screen: Client denies travel out of the [place] in the last 14 days. At this time, the client does not indicate any symptoms associated with coronavirus-19. Ebola Screen: No symptoms or risks identified at this time. Risk Assessment: Do you want to hurt yourself or someone else? Patient reports no desire to harm self or others. Onset of symptoms was February 03, 2020. 20:09 Method Of Arrival: Ambulatory lp1 20:09 Acuity: MONICA 3 lp1 20:17 Initial Sepsis Screen: Does the patient meet any 2 criteria? No. Patient's initial lp1 sepsis screen is negative. Does the patient have a suspected source of infection? No. Patient's initial sepsis screen is negative. Historical: - Allergies: 20:15 No Known Allergies; lp1 - Home Meds: 20:15 buspirone 15 mg Oral tab 1 tab 2 times per day [Active]; Trulicity subcutaneous lp1 subcutaneous [Active]; Metformin Oral [Active]; Cymbalta oral oral [Active]; aspirin 81 mg Oral TbEC 1 tab once daily [Active]; gabapentin 300 mg Oral cap 1 cap 3 times per day [Active]; Metoprolol Tartrate Oral [Active]; tizanidine 4 mg Oral cap 1 cap 3 times per day [Active]; Deerton Oral [Active]; pravastatin 40 mg Oral tab 1 tab once daily [Active]; Humalog Sub-Q [Active]; - PMHx: 20:15 Diabetes - IDDM; Hypertension; neuropathy; lp1 - PSHx: 20:15 Right second toe amputation; lp1 - Immunization history:: Adult Immunizations up to date. - Social history:: Smoking status: Patient denies any tobacco usage or history of. Screenin:11 Abuse screen: Denies threats or abuse. Denies injuries from another. Nutritional lp1 screening: No deficits noted. Tuberculosis screening: No symptoms or risk factors identified. Fall Risk None identified. Assessment: 20:35 General: Appears in no apparent distress. comfortable, Behavior is calm, cooperative, ca1 appropriate for age. Pain: Complains of pain in face, scalp, right low back and abdomen Pain currently is 7 out of 10 on a pain scale. Neuro: Level of Consciousness is awake, alert, obeys commands, Oriented to person, place, time, situation. Cardiovascular: Heart tones S1 S2 present Capillary refill < 3 seconds Patient's skin is warm and dry. Respiratory: Airway is patent Respiratory effort is even, unlabored, Respiratory pattern is regular, symmetrical, Breath sounds are clear bilaterally. GI: Abdomen is round non-distended, Bowel sounds present X 4 quads. Abd is soft and non tender X 4 quads. : No signs and/or symptoms were reported regarding the genitourinary system. EENT: No signs and/or symptoms were reported regarding the EENT system. Derm: Skin is intact, is healthy with good turgor, Skin is pink, warm \T\ dry. Musculoskeletal: Circulation, motion, and sensation intact. Capillary refill < 3 seconds. 21:47 Reassessment: Patient appears in no apparent distress at this time. Patient and/or ca1 family updated on plan of care and expected duration. Pain level reassessed. Patient is alert, oriented x 3, equal unlabored respirations, skin warm/dry/pink. 22:26 Reassessment: Patient appears in no apparent distress at this time. Patient resting, lp1 eyes closed, respirations even, unlabored. 22:52 Reassessment: Patient awakened for discharge, states nausea; Provider notified, verbal lp1 order for Zofran ODT 4mg PO. Vital Signs: 20:17 BP 148 / 87; Pulse 110; Resp 18; Temp 98.2(O); Pulse Ox 100% on R/A; Weight 95.25 kg lp1 (R); Height 5 ft. 7 in. (170.18 cm); Pain 4/10; 20:37 BP 128 / 81; Pulse 99; Resp 16 S; Pulse Ox 98% on R/A; ca1 21:47 BP 151 / 94; Pulse 97; Resp 16 S; Pulse Ox 100% on R/A; ca1 22:27 BP 157 / 97; Pulse 99; Resp 18; Pulse Ox 100% on R/A; lp1 20:17 Body Mass Index 32.89 (95.25 kg, 170.18 cm) lp1 ED Course: 20:03 Patient arrived in ED. am2 20:04 Juan Mcclendon DO is Private Physician. am2 20:06 Kleber Cheatham MD is Attending Physician. tw4 20:11 Triage completed. lp1 20:18 Arm band placed on. lp1 20:19 Edelmira Adler, RN is Primary Nurse. ca1 20:31 No provider procedures requiring assistance completed. Initial lab(s) drawn, by me, ca1 sent to lab. Inserted saline lock: 20 gauge in right upper arm, using aseptic technique. Blood collected. 20:35 Patient has correct armband on for positive identification. Placed in gown. Bed in low ca1 position. Call light in reach. Side rails up X 1. Pulse ox on. NIBP on. Warm blanket given. 22:00 Report received from PETRA Hickey. lp1 22:24 Abdomen In Process Unspecified. EDMS 22:34 Juan Mcclendon DO is Referral Physician. tw4 22:53 IV discontinued, No redness/swelling at site. Pressure dressing applied. lp1 Administered Medications: 20:49 Drug: NS 0.9% 1000 ml Route: IV; Rate: 1 bolus; Site: right upper arm; ca1 22:15 Follow up: IV Status: Completed infusion; IV Intake: 1000ml lp1 21:03 Drug: Zofran (Ondansetron) 4 mg Route: IVP; Site: right upper arm; ca1 21:40 Follow up: Response: No adverse reaction; Nausea is decreased ca1 21:04 Drug: Tylenol 1000 mg Route: PO; ca1 21:40 Follow up: Response: No adverse reaction; Pain is decreased ca1 22:54 Drug: Ondansetron (Zofran) 4 mg Route: PO; lp1 22:55 Follow up: Response: Medication administered at discharge. lp1 Intake: 22:15 IV: 1000ml; Total: 1000ml. lp1 Outcome: 22:35 Discharge ordered by . tw4 22:53 Discharged to home ambulatory. lp1 22:53 Condition: good 22:53 Discharge instructions given to patient, Instructed on discharge instructions, follow up and referral plans. medication usage, Demonstrated understanding of instructions, follow-up care, medications, Prescriptions given X 2. 22:58 Patient left the ED. lp1 Signatures: Dispatcher [employer] EDMS Mary Bains RN RN lp1 Suri Eddy am2 Kleber Cheatham MD MD tw4 Edelmira Adler RN RN ca1
[2020-02-03 22:46] LABS: Urine Amorphous Sediment 2+ /HPF (NONE SEEN); Urine Bacteria >50 /HPF (NONE SEEN); Urine Culture Reflex Order REFLEXED; Urine Mucus 2+ /HPF (NONE SEEN); Urine RBC <5 /HPF (NONE SEEN)
[2020-02-03] MEDS ORDERED: ONDANSETRON 4 MG (ODT) TAB ONE (23:04)
--- NOTE | 2020-02-04 14:31 | RAD REPORT ---
EXAM DESCRIPTION: CT Abdomen and Pelvis Without Intravenous Contrast CLINICAL HISTORY: The patient is 54 years old and is Male; PAIN TECHNIQUE: Axial computed tomography images of the abdomen and pelvis without intravenous contrast. Sagittal and coronal reformatted images were created and reviewed. This CT exam was performed usi ng one or more of the following dose reduction techniques: automated exposure control, adjustment o f the mA and/or kV according to patient size, and/or use of iterative reconstruction technique. COMPARISON: No relevant prior studies available. FINDINGS: Lung bases: Unremarkable. No mass. No consolidation. ABDOMEN: Liver: Unremarkable. Gallbladder and bile ducts: Unremarkable. No calcified stones. No ductal dilation. Pancreas: Unremarkable. No ductal dilation. Spleen: Unremarkable. No splenomegaly. Adrenals: Unremarkable. No mass. Kidneys and ureters: Unremarkable. No obstructing stones. No hydronephrosis. Stomach and bowel: Unremarkable. No obstruction. No mucosal thickening. PELVIS: Appendix: The appendix is seen and is within normal limits Bladder: Mild bladder wall thickening may be secondary to underdistention, chronic outlet obstru ction or infectious cystitis. No stones. Reproductive: Unremarkable as visualized. ABDOMEN and PELVIS: Intraperitoneal space: Unremarkable. No free air. No significant fluid collection. Bones/joints: No acute fracture. No dislocation. Soft tissues: Unremarkable. Vasculature: Scattered atherosclerotic vascular calcifications. No abdominal aortic aneurysm. Lymph nodes: Unremarkable. No enlarged lymph nodes. IMPRESSION: Mild bladder wall thickening may be secondary to underdistention, chronic outlet obstruc tion or infectious cystitis. Otherwise no other acute intra-abdominal abnormality. Electronically signed by: Calvin Menjivar MD 02/03/2020 9:43 PM CDT Due to temporary technical issues with the PACS/Fluency reporting system, reports are being signed by the in house radiologist without review as a courtesy to ensure prompt reporting. The interpreting r adiologist is fully responsible for the content of the report.
[2020-02-05 05:10] VITALS: TEMP 98.2
[2020-02-05 05:13] VITALS: O2SAT 100
[2020-02-05 05:14] VITALS: BP 157/97
== END 2020-02-03 22:58 | disposition home or self-care (01) ==
LOC: ER 20:00
DX: R10.819 Abdominal tenderness, unspecified site (principal); I10 Essential (primary) hypertension; E11.9 Type 2 diabetes mellitus without complications; Z79.82 Long term (current) use of aspirin; Z79.4 Long term (current) use of insulin
CPT/HCPCS: 96361; 87088; 85025; 87086; 80048; 36415; 80076; 87077; 87186; 83690; 74176; 96374; 99284; J7030; J2405; 81003; 81015

== ENCOUNTER 2020-03-21 10:38 | Emergency (ER) | payer OTHER ==
--- OUTSIDE RECORDS SUMMARY | 2020-03-21 10:59 | XMS REPORT | Continuity of Care Document ---
:1965 Author Organization [facility] t Address [address] [place] [address] Care Team Providers Name Role Phone Michael [...] Department ID 2019-07-28 2019-08-04 Ancillary TOM Donovan [id number] 1980 15:09:42 11:48:49 Visit Faith Lozano [id number] Nithin [id number] Efrain [id number] [facility] [address] Building Results This patient has no known results.
[2020-03-21 12:15] LABS: Urine Blood NEGATIVE (NEG); Urine Glucose 3+ (NEG); Urine Protein 2+ (NEG); Urine Specific Gravity 1.025 (1.005-1.030)
[2020-03-21 12:19] LABS: Urine Bacteria <20 /HPF (NONE SEEN); Urine RBC NONE SEEN /HPF (NONE SEEN)
[2020-03-21 12:20] LABS: Urine Culture Reflex Order NOT NEEDED
[2020-03-21] MEDS ORDERED: NA CHLORIDE 0.9% 1,000 ML ONE (12:23)
[2020-03-21] MEDS ORDERED: ONDANSETRON 4 MG/2 ML VIAL ONE (12:23)
[2020-03-21] MEDS ORDERED: KETOROLAC 30 MG/ML INJ ONE (12:23)
[2020-03-21 12:25] LABS: Absolute Lymphocytes (CBC) 2.9 K/uL (0.7-4.9); Basophils % 0.8 % (0-1.3); Hematocrit 42.7 % (39.6-49.0); Lymphocytes % 29.8 % (15.3-44.8); MPV 9.4 fL (7.6-11.3); RBC Red Blood Cell Count 5.06 M/uL (4.33-5.43)
[2020-03-21 12:34] LABS: ALT/SGPT 34 U/L (12-78); AST/SGOT 15 U/L (15-37); Albumin 3.3 g/dL (3.4-5.0); Alkaline Phosphatase 118 U/L (45-117); BUN Blood Urea Nitrogen 23 mg/dL (7-18); Bicarbonate 32 mmol/L (21-32); Bilirubin Direct < 0.1 mg/dL (0-0.2); Bilirubin Total 0.2 mg/dL (0.2-1.0); Glucose Level 277 mg/dL (74-106); Lipase 247 U/L (73-393); Magnesium 2.7 mg/dL (1.8-2.4); Potassium 4.2 mmol/L (3.5-5.1); Protein, Total 7.6 g/dL (6.4-8.2); Sodium Level 141 mmol/L (136-145); Troponin I < 0.02 ng/mL (0.0-0.045)
--- NOTE | 2020-03-21 13:39 | ER ---
Nurse's Notes [facility] Name: Christopher Cruz Age: 54 yrs Sex: Male : 1965 Arrival Date: 03/21/2020 Time: 10:39 Bed 18 Private MD: Juan Mcclendon Diagnosis: Diabetes mellitus due to underlying condition with hyperglycemia;Malaise and fatigue Presentation: 03/21 11:01 Chief complaint: Patient states: headache, nausea, legs cramping, no vomiting or iw diarrhea, + body aches. Coronavirus screen: headache, muscle pain, nausea, Client presents with at least one sign or symptom that may indicate coronavirus-19. Standard/surgical mask placed on the client. Provider contacted for isolation considerations. Ebola Screen: Patient negative for fever greater than or equal to 101.5 degrees Fahrenheit, and additional compatible Ebola Virus Disease symptoms Patient denies exposure to infectious person. Patient denies travel to an Ebola-affected area in the 21 days before illness onset. No symptoms or risks identified at this time. Initial Sepsis Screen: Does the patient meet any 2 criteria? No. Patient's initial sepsis screen is negative. Does the patient have a suspected source of infection? No. Patient's initial sepsis screen is negative. Risk Assessment: Do you want to hurt yourself or someone else? Patient reports no desire to harm self or others. Onset of symptoms was March 18, 2020. 11:01 Method Of Arrival: Ambulatory iw 11:01 Acuity: MONICA 3 iw Triage Assessment: 11:05 Headache History: The patient has had previous headaches and this one is similar to bp previous episodes. General: Appears in no apparent distress. uncomfortable, Behavior is calm, cooperative, appropriate for age. Pain: Complains of pain in head Pain currently is 5 out of 10 on a pain scale. Pain began 2-3 days ago. Also complains of no other associated symptoms. EENT: No deficits noted. Neuro: Level of Consciousness is awake, alert, obeys commands, Oriented to person, place, time, situation, Appropriate for age. Cardiovascular: Rhythm is sinus rhythm. Respiratory: No deficits noted. GI: No signs and/or symptoms were reported involving the gastrointestinal system. : No signs and/or symptoms were reported regarding the genitourinary system. Derm: No deficits noted. Musculoskeletal: Reports BLE CRAMPING. Historical: - Allergies: 11:03 No Known Allergies; iw - PMHx: 11:03 Diabetes - IDDM; Hypertension; neuropathy; iw - PSHx: 11:03 Right second toe amputation; iw - Immunization history:: Adult Immunizations up to date. - Social history:: Smoking status: Smoking status: Patient denies any tobacco usage or history of. Screenin:35 Abuse screen: Denies threats or abuse. Denies injuries from another. Nutritional bp screening: No deficits noted. Tuberculosis screening: No symptoms or risk factors identified. Fall Risk None identified. Assessment: 11:05 General: SEE TRIAGE NOTE. bp 12:00 Reassessment: Patient appears in no apparent distress at this time. Patient and/or bp family updated on plan of care and expected duration. Pain level reassessed. ALL CURRENT ORDERS COMPLETED, RESULTS PENDING. 13:00 Reassessment: Patient appears in no apparent distress at this time. Patient and/or bp family updated on plan of care and expected duration. Pain level reassessed. VS STABLE. RESULTS PENDING. 13:50 Reassessment: PT D/C HOME AMBULATORY, DX WITH DIABETES AND MALAISE. bp Vital Signs: 11:01 BP 119 / 84; Pulse 102; Resp 18; Temp 97.8; Pulse Ox 99% on R/A; Weight 92.08 kg; iw Height 5 ft. 7 in. (170.18 cm); Pain 8/10; 12:00 BP 128 / 77; Pulse 88; Resp 16; Pulse Ox 100% ; bp 13:00 BP 126 / 87; Pulse 89; Resp 16; Pulse Ox 99% ; bp 13:45 BP 132 / 82; Pulse 90; Resp 17; Temp 98; Pulse Ox 100% ; bp 11:01 Body Mass Index 31.79 (92.08 kg, 170.18 cm) iw ED Course: 10:39 Patient arrived in ED. ag5 10:40 Juan Mcclendon DO is Private Physician. ag5 11:03 Triage completed. iw 11:04 Driss Ward PA is PHCP. cp 11:04 Driss Miller MD is Attending Physician. cp 11:04 Lucas Napier, PETRA is Primary Nurse. bp 11:04 Arm band placed on. iw 11:35 Patient has correct armband on for positive identification. Bed in low position. Call bp light in reach. Side rails up X2. 11:35 Inserted saline lock: 20 gauge in right antecubital area, using aseptic technique. bp Blood collected. 11:53 EKG done, by ED staff, reviewed by Driss RATLIFF. em1 13:56 No provider procedures requiring assistance completed. IV discontinued, intact, bp bleeding controlled, No redness/swelling at site. Pressure dressing applied. Administered Medications: 11:35 Drug: TORadol - Ketorolac 15 mg Route: IVP; Site: right antecubital; bp 13:21 Follow up: Response: Pain is decreased bp 11:35 Drug: NS 0.9% 1000 ml Route: IV; Rate: 1 bolus; Site: right antecubital; bp 14:05 Follow up: IV Status: Completed infusion; IV Intake: 1000ml bp 11:35 Drug: Zofran (Ondansetron) 4 mg Route: IVP; Site: right antecubital; bp 13:21 Follow up: Response: No adverse reaction bp Intake: 14:05 IV: 1000ml; Total: 1000ml. bp Outcome: 13:38 Discharge ordered by . cp 14:04 Discharged to home ambulatory. bp 14:04 Condition: stable 14:04 Discharge instructions given to patient, Instructed on discharge instructions, follow up and referral plans. Demonstrated understanding of instructions, follow-up care. 14:05 Patient left the ED. bp Signatures: Cherri Garcia, RN Loki Diaz em1 Driss Ward PA PA cp Peltier, Brian, RN RN Fatemeh Owen ag5
--- NOTE | 2020-03-21 13:39 | EDPHYS ---
Physician Documentation [facility] Name: Christopher Cruz Age: 54 yrs Sex: Male : 1965 Arrival Date: 03/21/2020 Time: 10:39 Bed 18 Private MD: Juan Mcclendon ED Physician Driss Miller HPI: 03/21 11:20 This 54 yrs old Male presents to ER via Ambulatory with complaints of cp Headache, Body Aches, Leg Cramping. Historical: - Allergies: 11:03 No Known Allergies; iw - PMHx: 11:03 Diabetes - IDDM; Hypertension; neuropathy; iw - PSHx: 11:03 Right second toe amputation; iw - Immunization history:: Adult Immunizations up to date. - Social history:: Smoking status: Smoking status: Patient denies any tobacco usage or history of. ROS: 11:25 Constitutional: Positive for body aches, Negative for fever, poor PO intake. cp 11:25 Eyes: Negative for injury, pain, redness, and discharge. cp 11:25 ENT: Negative for ear pain, sore throat, difficulty swallowing, difficulty handling secretions. 11:25 Cardiovascular: Negative for chest pain, edema, palpitations. 11:25 Respiratory: Negative for cough, shortness of breath, wheezing. 11:25 Abdomen/GI: Positive for nausea, Negative for abdominal pain, vomiting, diarrhea, constipation, black/tarry stool, rectal bleeding. 11:25 : Negative for urinary symptoms. 11:25 Neuro: Positive for headache, weakness, Negative for altered mental status, dizziness, syncope. 11:25 All other systems are negative. Exam: 11:30 Constitutional: The patient appears in no acute distress, alert, awake, cp non-diaphoretic, non-toxic, well developed, well nourished, obese. 11:30 Head/Face: Normocephalic, atraumatic. cp 11:30 Eyes: Periorbital structures: appear normal, Conjunctiva: normal, no exudate, no injection, Sclera: no appreciated abnormality, Lids and lashes: appear normal, bilaterally. 11:30 ENT: External ear(s): are unremarkable, Nose: is normal, Mouth: Lips: moist, Oral mucosa: moist, Posterior pharynx: Airway: no evidence of obstruction, patent, Tonsils: no enlargement, no exudate, erythema, is not appreciated, exudate, is not appreciated. 11:30 Neck: ROM/movement: is normal, is supple, without pain, no range of motions limitations. 11:30 Chest/axilla: Inspection: normal, Palpation: is normal, no crepitus, no tenderness. 11:30 Cardiovascular: Rate: tachycardic, Rhythm: regular, Edema: is not appreciated, JVD: is not appreciated. 11:30 Respiratory: the patient does not display signs of respiratory distress, Respirations: normal, no use of accessory muscles, no retractions, labored breathing, is not present, Breath sounds: are clear throughout, no decreased breath sounds, no stridor, no wheezing. 11:30 Abdomen/GI: Inspection: abdomen appears normal, Bowel sounds: normal, in all quadrants, Palpation: abdomen is soft and non-tender, in all quadrants, rebound tenderness, is not appreciated. 11:30 Back: CVA tenderness, is absent. 11:30 Skin: no rash present. 11:30 Neuro: Orientation: to person, place \T\ time. Mentation: is normal, Cerebellar function: is grossly normal, Motor: moves all fours, strength is normal, Sensation: is normal. 12:00 ECG was reviewed by the Attending Physician. cp Vital Signs: 11:01 BP 119 / 84; Pulse 102; Resp 18; Temp 97.8; Pulse Ox 99% on R/A; Weight 92.08 kg; iw Height 5 ft. 7 in. (170.18 cm); Pain 8/10; 12:00 BP 128 / 77; Pulse 88; Resp 16; Pulse Ox 100% ; bp 13:00 BP 126 / 87; Pulse 89; Resp 16; Pulse Ox 99% ; bp 13:45 BP 132 / 82; Pulse 90; Resp 17; Temp 98; Pulse Ox 100% ; bp 11:01 Body Mass Index 31.79 (92.08 kg, 170.18 cm) iw MDM: 11:05 Patient medically screened. [facility] 13:37 Data reviewed: vital signs, nurses notes, lab test result(s), EKG. 13:37 Test interpretation: by ED physician or midlevel provider: ECG. Counseling: I had a cp detailed discussion with the patient and/or guardian regarding: the historical points, exam findings, and any diagnostic results supporting the discharge/admit diagnosis, lab results, the need for outpatient follow up, an all source intelligence analyst, to return to the emergency department if symptoms worsen or persist or if there are any questions or concerns that arise at home. Response to treatment: the patient's symptoms have mildly improved after treatment. 03/21 11:16 Order name: Basic Metabolic Panel; Complete Time: 12:54 cp 03/21 12:55 Interpretation: Normal except: GLUC 277; BUN 23; CRE 1.40; GFR 53; CA 8.4. cp 03/21 11:16 Order name: CBC with Diff; Complete Time: 12:54 cp 03/21 11:16 Order name: Hepatic Function; Complete Time: 12:54 cp 03/21 13:25 Interpretation: Normal except: ALK 118; ALB 3.3; GLOB 4.3; A/G 0.8. cp 03/21 11:16 Order name: Lipase; Complete Time: 12:54 cp 03/21 11:16 Order name: Urine Microscopic Only; Complete Time: 12:54 cp 03/21 11:16 Order name: Magnesium; Complete Time: 12:54 cp 03/21 12:55 Interpretation: Abnormal: MG 2.7. cp 03/21 11:16 Order name: Troponin I; Complete Time: 12:54 cp 03/21 11:16 Order name: EKG; Complete Time: 11:17 cp 03/21 11:17 Order name: Influenza Screen (a \T\ B) cp 03/21 12:07 Order name: Urine Dipstick--Ancillary (enter results); Complete Time: 12:54 bd 03/21 11:16 Order name: IV Saline Lock; Complete Time: 12:18 cp 03/21 11:16 Order name: Labs collected and sent; Complete Time: 12:18 cp 03/21 11:16 Order name: Urine Dipstick-Ancillary (obtain specimen); Complete Time: 12:18 cp 03/21 11:16 Order name: EKG - Nurse/Tech; Complete Time: 11:53 cp 03/21 13:25 Order name: PO challenge; Complete Time: 13:50 cp EC:00 Rate is 94 beats/min. Rhythm is regular. IA interval is normal. QRS interval is normal. cp QT interval is normal. Interpreted by me. Reviewed by me. Administered Medications: 11:35 Drug: TORadol - Ketorolac 15 mg Route: IVP; Site: right antecubital; bp 13:21 Follow up: Response: Pain is decreased bp 11:35 Drug: NS 0.9% 1000 ml Route: IV; Rate: 1 bolus; Site: right antecubital; bp 14:05 Follow up: IV Status: Completed infusion; IV Intake: 1000ml bp 11:35 Drug: Zofran (Ondansetron) 4 mg Route: IVP; Site: right antecubital; bp 13:21 Follow up: Response: No adverse reaction bp Disposition: 03/22 10:48 Co-signature as Attending Physician, Driss Miller MD I agree with the assessment and macho plan of care. Disposition: 03/21/20 13:38 Discharged to Home. Impression: Diabetes mellitus due to underlying condition with hyperglycemia, Malaise and fatigue. - Condition is Stable. - Discharge Instructions: Fatigue, Blood Glucose Monitoring, Adult, Diabetes Mellitus and Food, COVID-19. - Medication Reconciliation Form, Thank You Letter, Antibiotic Education, Prescription Opioid Use form. - Follow up: Private Physician; When: 1 - 2 days; Reason: Recheck today's complaints. - Problem is new. - Symptoms have improved. Signatures: Dispatcher [employer] EDMS Driss Miller MD MD cha Williams, Irene, RN RN Driss Novoa PA PA cp Peltier, Brian, RN RN bp Corrections: (The following items were deleted from the chart) 03/21 12:55 12:54 Normal except: GLUC 277; BUN 23; CRE 1.40; GFR 53. cp cp 13:40 13:38 03/21/2020 13:38 Discharged to Home. Impression: Diabetes mellitus due to cp underlying condition with hyperglycemia. Condition is Stable. Forms are Medication Reconciliation Form, Thank You Letter, Antibiotic Education, Prescription Opioid Use. Follow up: Private Physician; When: 1 - 2 days; Reason: Recheck today's complaints. Problem is new. Symptoms have improved. cp 14:05 13:40 03/21/2020 13:38 Discharged to Home. Impression: Diabetes mellitus due to bp underlying condition with hyperglycemia; Malaise and fatigue. Condition is Stable. Discharge Instructions: Blood Glucose Monitoring, Adult, Diabetes Mellitus and Food, COVID-19. Forms are Medication Reconciliation Form, Thank You Letter, Antibiotic Education, Prescription Opioid Use. Follow up: Private Physician; When: 1 - 2 days; Reason: Recheck today's complaints. Problem is new. Symptoms have improved. cp
[2020-03-21 14:18] VITALS: BP 132/82; TEMP 98; O2SAT 100
--- NOTE | 2020-03-22 07:27 | EKG ---
Test Date: 2020-03-21 Test Time: 11:52:34 Math And Science Division Chair: GRIFFIN MEASUREMENT RESULTS: Intervals: Rate: 94 RI: 146 QRSD: 82 QT: 340 QTc: 425 [place]: P: 61 RI: 146 QRS: 54 T: 65 INTERPRETIVE STATEMENTS: Normal sinus rhythm Normal ECG Compared to ECG 01/08/2019 21:40:21 No significant changes Electronically Signed On 03-22-20 07:24:57 CDT by Senthil Bush
== END 2020-03-21 14:05 | disposition home or self-care (01) ==
LOC: ER 10:38
DX: E11.65 Type 2 diabetes mellitus with hyperglycemia (principal); Z20.828 Contact with and (suspected) exposure to other viral communicable diseases; E11.40 Type 2 diabetes mellitus with diabetic neuropathy, unspecified; R53.81 Other malaise; R53.83 Other fatigue; I10 Essential (primary) hypertension
CPT/HCPCS: 96361; 93005; 85025; 80048; 36415; 83735; 80076; 84484; 83690; 87804 ×2; 96375; 96374; 99284; U0003; J7030; J2405; 81003; 81015

== ENCOUNTER 2020-06-19 09:46 | Emergency (ER) | payer OTHER ==
--- OUTSIDE RECORDS SUMMARY | 2020-06-19 09:51 | XMS REPORT | Continuity of Care Document ---
:1965 Author Organization [facility] t Address [address] [place] [address] Care Team Providers Name Role Phone Michael [...] Department ID 2019-07-28 2019-08-04 Ancillary TOM Donovan [id number] 1980 15:09:42 11:48:49 Visit Faith Lozano [id number] Nithin [id number] Ef[place] [id number] [facility] [address] Results This patient has no known results.
[2020-06-19 10:54] LABS: Absolute Lymphocytes (CBC) 3.6 K/uL (0.7-4.9); Basophils % 0.4 % (0-1.3); Hematocrit 39.1 % (39.6-49.0); Lymphocytes % 41.4 % (15.3-44.8); MPV 9.2 fL (7.6-11.3); RBC Red Blood Cell Count 4.64 M/uL (4.33-5.43)
[2020-06-19 11:08] LABS: ALT/SGPT 27 U/L (12-78); AST/SGOT 12 U/L (15-37); Alkaline Phosphatase 99 U/L (45-117); BUN Blood Urea Nitrogen 19 mg/dL (7-18); Bicarbonate 31 mmol/L (21-32); Bilirubin Direct < 0.1 mg/dL (0-0.2); Bilirubin Total 0.2 mg/dL (0.2-1.0); Glucose Level 346 mg/dL (74-106); Lipase 641 U/L (73-393); Sodium Level 138 mmol/L (136-145); Troponin (Emerg Dept Use Only) < 0.02 ng/mL (0.0-0.045)
[2020-06-19 12:05] LABS: SARS-COV-2 RT PCR NEGATIVE (NEGATIVE)
--- NOTE | 2020-06-19 12:28 | RAD REPORT ---
EXAM DESCRIPTION: CT - Abdomen Pelvis W Contrast - 06/19/2020 12:13 pm CLINICAL HISTORY: Abdominal pain COMPARISON: January 2020 TECHNIQUE: Computed axial tomography of the abdomen pelvis was obtained. 100 cc Isovue-300 was admin istered intravenously. Oral contrast was not requested which limits evaluation of bowel. All CT scans are performed using dose optimization technique as appropriate and may include automated exposure control or mA/KV adjustment according to patient size. FINDINGS: The liver, spleen, pancreas, adrenal and right kidney appear unremarkable. Small left baldo l cyst There is no evidence of diverticulitis. Normal appendix Wall of the distal esophagus appears mildly thickened Small inguinal hernias IMPRESSION: Wall of the distal soft scan appears mildly thickened. This may be secondary to incomple te distention or pathology such as inflammation
--- NOTE | 2020-06-19 13:43 | RAD REPORT ---
EXAM DESCRIPTION: US - Abdomen Exam Limited - 06/19/2020 1:30 pm CLINICAL HISTORY: ABD PAIN COMPARISON: Abdomen Pelvis W Contrast dated 06/19/2020 FINDINGS: No gallstones, sludge or other abnormalities within the gallbladder lumen. There is no wal l thickening or pericholecystic fluid. No common duct stone or biliary tree dilatation identified. IMPRESSION: Normal gallbladder and biliary tree ultrasound.
--- NOTE | 2020-06-19 14:48 | ER ---
Nurse's Notes [facility] Name: Christopher Cruz Age: 55 yrs Sex: Male : 1965 Arrival Date: 06/19/2020 Time: 09:48 Bed 18 Private MD: Diagnosis: Acute pancreatitis Presentation: 06/19 09:54 Chief complaint: Patient states: Abdominal discomfort and constipation x 5 days. Denies ca1 N/V/D. Fever x 3 days. Coronavirus screen: Client denies travel out of the [place] in the last 14 days. fever, Client presents with at least one sign or symptom that may indicate coronavirus-19. Standard/surgical mask placed on the client. Provider contacted for isolation considerations. Ebola Screen: Patient negative for fever greater than or equal to 101.5 degrees Fahrenheit, and additional compatible Ebola Virus Disease symptoms Patient denies exposure to infectious person. Patient denies travel to an Ebola-affected area in the 21 days before illness onset. No symptoms or risks identified at this time. Initial Sepsis Screen: Does the patient meet any 2 criteria? No. Patient's initial sepsis screen is negative. Does the patient have a suspected source of infection? No. Patient's initial sepsis screen is negative. Risk Assessment: Do you want to hurt yourself or someone else? Patient reports no desire to harm self or others. Onset of symptoms was June 19, 2020. 09:54 Method Of Arrival: Ambulatory ca1 09:54 Acuity: MONICA 3 ca1 Triage Assessment: 10:00 General: Appears in no apparent distress. uncomfortable, Behavior is cooperative, bp appropriate for age, anxious. Pain: Complains of pain in abdomen. EENT: No deficits noted. Neuro: No deficits noted. Cardiovascular: No deficits noted. Respiratory: No deficits noted. GI: Reports upper abdominal pain, constipation. : No signs and/or symptoms were reported regarding the genitourinary system. Derm: No deficits noted. Musculoskeletal: No deficits noted. Historical: - Allergies: 09:56 No Known Allergies; ca1 - PMHx: 09:56 Diabetes - IDDM; Hypertension; neuropathy; ca1 - PSHx: 09:56 Right second toe amputation; ca1 - Immunization history:: Pneumococcal vaccine is up to date, Flu vaccine is up to date. - Social history:: Smoking status: Patient denies any tobacco usage or history of. Screenin:00 Abuse screen: Denies threats or abuse. Denies injuries from another. Nutritional bp screening: No deficits noted. Tuberculosis screening: No symptoms or risk factors identified. Fall Risk None identified. Assessment: 10:00 General: SEE TRIAGE NOTE. bp 11:08 Reassessment: Patient appears in no apparent distress at this time. No changes from bp previously documented assessment. Patient and/or family updated on plan of care and expected duration. Pain level reassessed. Patient is alert, oriented x 3, equal unlabored respirations, skin warm/dry/pink. ALL CURRENT ORDERS COMPLETE. 12:17 Reassessment: No changes from previously documented assessment. Patient and/or family bp updated on plan of care and expected duration. Pain level reassessed. Patient is alert, oriented x 3, equal unlabored respirations, skin warm/dry/pink. PT RETURNED FROM CT. 14:00 Reassessment: Patient appears in no apparent distress at this time. No changes from bp previously documented assessment. Patient and/or family updated on plan of care and expected duration. Pain level reassessed. Patient is alert, oriented x 3, equal unlabored respirations, skin warm/dry/pink. 15:12 Reassessment: PT D/C HOME AMBULATORY, DX WITH ACUTE PANCREATITIS. bp Vital Signs: 09:54 BP 154 / 78; Pulse 93; Resp 16 S; Temp 98.1(O); Pulse Ox 100% on R/A; Weight 90.72 kg ca1 (R); Height 5 ft. 7 in. (170.18 cm) (R); Pain 4/10; 11:07 BP 151 / 83; Pulse 83; Resp 16; Pulse Ox 100% ; bp 12:18 BP 148 / 83; Pulse 84; Resp 16; Pulse Ox 100% ; bp 13:20 BP 141 / 85; Pulse 85; Resp 16; Temp 98.5(O); Pulse Ox 100% on R/A; mh5 09:54 Body Mass Index 31.32 (90.72 kg, 170.18 cm) ca1 ED Course: 09:48 Patient arrived in ED. as 09:56 Triage completed. ca1 09:56 Arm band placed on right wrist. ca1 09:57 Tomi Cifuentes PA is PHCP. jm 09:57 Driss Miller MD is Attending Physician. jmm 10:00 Patient has correct armband on for positive identification. Bed in low position. Call bp light in reach. Side rails up X2. 10:11 Lucas Napier, RN is Primary Nurse. bp 10:35 Inserted saline lock: 20 gauge in right forearm, using aseptic technique. Blood bp collected. 11:20 Initial lab(s) drawn, by ED staff, sent to lab. EKG done, by ED staff, reviewed by Harish Miller MD COVID swab sent to lab. Flu and/or RSV swab sent to lab. 12:14 CT Abd/Pelvis - IV Contrast Only In Process Unspecified. EDMS 13:30 US Abdomen Limited In Process Unspecified. EDMS 14:47 Ronnie Rowan MD is Referral Physician. [facility] 15:12 No provider procedures requiring assistance completed. IV discontinued, intact, bp bleeding controlled, No redness/swelling at site. Pressure dressing applied. Administered Medications: 10:35 Drug: NS 0.9% 1000 ml Route: IV; Rate: 1 bolus; Site: right forearm; bp 15:13 Follow up: IV Status: Completed infusion bp Outcome: 14:47 Discharge ordered by MD. jm 15:13 Discharged to home ambulatory. bp 15:13 Condition: stable 15:13 Discharge instructions given to patient, Instructed on discharge instructions, follow up and referral plans. Demonstrated understanding of instructions, follow-up care. 15:14 Patient left the ED. bp Signatures: Dispatcher [employer] EDMS Tomi Cifuentes PA PA jmm Martinez, Amelia as Martinez, [facility] Lucas Napier, RN RN bp Edelmira Adler RN RN ca1
--- NOTE | 2020-06-19 14:48 | EDPHYS ---
Physician Documentation [facility] Name: Christopher Cruz Age: 55 yrs Sex: Male : 1965 Arrival Date: 06/19/2020 Time: 09:48 Bed 18 Private MD: BRIT Physician Driss Miller HPI: 06/19 09:58 This 55 yrs old Male presents to ER via Ambulatory with complaints of Fever, jmm Abdominal Cramping. 09:58 The patient presents with abdominal pain. Onset: The symptoms/episode began/occurred jmm gradually, 5 day(s) ago. The symptoms do not radiate. Associated signs and symptoms: Pertinent positives: constipation, fever, Pertinent negatives: diarrhea, shortness of breath, testicular pain, vomiting. The symptoms are described as achy. The patient has not experienced similar symptoms in the past. Historical: - Allergies: 09:56 No Known Allergies; ca1 - PMHx: 09:56 Diabetes - IDDM; Hypertension; neuropathy; ca1 - PSHx: 09:56 Right second toe amputation; ca1 - Immunization history:: Pneumococcal vaccine is up to date, Flu vaccine is up to date. - Social history:: Smoking status: Patient denies any tobacco usage or history of. ROS: 09:58 Cardiovascular: Negative for chest pain, palpitations, and edema, Respiratory: Negative jmm for shortness of breath, cough, wheezing, and pleuritic chest pain. 09:58 Constitutional: Positive for fever. 09:58 Abdomen/GI: Positive for abdominal pain. 09:58 All other systems are negative. Exam: 09:58 Constitutional: This is a well developed, well nourished patient who is awake, alert, jmm and in no acute distress. Head/Face: atraumatic. Eyes: EOMI, no conjunctival erythema appreciated ENT: Moist Mucus Membranes Neck: Trachea midline, Supple Chest/axilla: Normal chest wall appearance and motion. Cardiovascular: Regular rate and rhythm. No edema appreciated Respiratory: Normal respirations, no respiratory distress appreciated 09:58 Back: Normal ROM Skin: General appearance color normal MS/ Extremity: Moves all extremities, no obvious deformities appreciated, no edema noted to the lower extremities Neuro: Awake and alert, normal gait Psych: Behavior is normal, Mood is normal, Patient is cooperative and pleasant 09:58 Abdomen/GI: Inspection: abdomen appears normal, Bowel sounds: normal, Palpation: soft, mild abdominal tenderness, in the right lower quadrant and left lower quadrant. 10:54 ECG was reviewed by the Attending Physician. [facility] Vital Signs: 09:54 BP 154 / 78; Pulse 93; Resp 16 S; Temp 98.1(O); Pulse Ox 100% on R/A; Weight 90.72 kg ca1 (R); Height 5 ft. 7 in. (170.18 cm) (R); Pain 4/10; 11:07 BP 151 / 83; Pulse 83; Resp 16; Pulse Ox 100% ; bp 12:18 BP 148 / 83; Pulse 84; Resp 16; Pulse Ox 100% ; bp 13:20 BP 141 / 85; Pulse 85; Resp 16; Temp 98.5(O); Pulse Ox 100% on R/A; mh5 09:54 Body Mass Index 31.32 (90.72 kg, 170.18 cm) ca1 MDM: 10:01 Patient medically screened. [facility] 14:45 Data reviewed: vital signs, nurses notes. Counseling: I had a detailed discussion with mary the patient and/or guardian regarding: the historical points, exam findings, and any diagnostic results supporting the discharge/admit diagnosis, lab results, the need for outpatient follow up, to return to the emergency department if symptoms worsen or persist or if there are any questions or concerns that arise at home. ED course: Patient is alert and non toxic in appearance in the ED. Elevated lipase may indicate a subacute pancreatitis. Patient is advised to follow up with GI for further evaluation. Patient understood and agrees with the plan of care. . 06/19 09:58 Order name: Basic Metabolic Panel [facility] 06/19 09:58 Order name: CBC with Diff [facility] 06/19 09:58 Order name: Hepatic Function [facility] 06/19 09:58 Order name: Lipase [facility] 06/19 09:58 Order name: Procalcitonin [facility] 06/19 09:58 Order name: Lactate; Complete Time: 11:46 [facility] 06/19 09:58 Order name: Blood Culture Adult (2) [facility] 06/19 09:58 Order name: Troponin (emerg Dept Use Only); Complete Time: 11:46 [facility] 06/19 09:59 Order name: Basic Metabolic Panel; Complete Time: 11:46 [facility] 06/19 09:59 Order name: CBC with Automated Diff; Complete Time: 11:46 EDMS 06/19 09:59 Order name: Liver (Hepatic) Function; Complete Time: 11:46 EDMS 06/19 09:59 Order name: Lipase; Complete Time: 11:46 EDMS 06/19 09:59 Order name: Procalcitonin; Complete Time: 11:46 EDMS 06/19 09:58 Order name: IV Saline Lock; Complete Time: 10:21 [facility] 06/19 09:58 Order name: Labs collected and sent; Complete Time: 10:21 [facility] 06/19 09:58 Order name: EKG - Nurse/Tech; Complete Time: 10:42 [facility] 06/19 11:47 Order name: CT Abd/Pelvis - IV Contrast Only; Complete Time: 12:30 [facility] 06/19 12:06 Order name: COVID-19/FLU A+B; Complete Time: 12:16 EDMS 06/19 12:31 Order name: US Abdomen Limited; Complete Time: 13:46 [facility] 06/19 14:44 Order name: Lactate Sepsis 2 HR Follow-up; Complete Time: 14:45 EDMS EC:54 Rate is 87 beats/min. Rhythm is regular. QRS [place] is Normal. [place] interval is normal. QRS jmm interval is normal. QT interval is normal. No Q waves. T waves are Normal. No ST changes noted. Reviewed by me. Administered Medications: 10:35 Drug: NS 0.9% 1000 ml Route: IV; Rate: 1 bolus; Site: right forearm; bp 15:13 Follow up: IV Status: Completed infusion bp Disposition: 06/20 06:30 Co-signature as Attending Physician, Driss Miller MD I agree with the assessment and [facility] plan of care. Disposition: 06/19/20 14:47 Discharged to Home. Impression: Acute pancreatitis. - Condition is Stable. - Discharge Instructions: Clear Liquid Diet, Adult, Acute Pancreatitis. - Medication Reconciliation Form, Thank You Letter, Antibiotic Education, Prescription Opioid Use form. - Follow up: Ronnie Rowan MD; When: 2 - 3 days; Reason: Recheck today's complaints, Continuance of care, Re-evaluation by your physician. Signatures: Dispatcher [employer] Driss Phillips MD MD cha Mickail, Joel, PA PA Lucas Barber, RN RN bp Edelmira Adler RN RN ca1 Corrections: (The following items were deleted from the chart) 06/19 11:17 10:47 CORONAVIRUS+MR.LAB.BRZ ordered. EDMS EDMS 11:18 10:47 Influenza Screen (A \T\ B)+BA.LAB.BRZ ordered. EDMN EDMS 15:14 14:47 06/19/2020 14:47 Discharged to Home. Impression: Acute pancreatitis. Condition is bp Stable. Forms are Medication Reconciliation Form, Thank You Letter, Antibiotic Education, Prescription Opioid Use. Follow up: Ronnie Rowan; When: 2 - 3 days; Reason: Recheck today's complaints, Continuance of care, Re-evaluation by your physician. mary
[2020-06-19 15:23] VITALS: O2SAT 100
[2020-06-19 15:27] VITALS: BP 141/85; TEMP 98.5
--- NOTE | 2020-06-20 12:13 | EKG ---
Test Date: 2020-06-19 Test Time: 10:45:56 Gas Leak Inspector Helper: IGNACIO MEASUREMENT RESULTS: Intervals: Rate: 87 ND: 154 QRSD: 90 QT: 368 QTc: 442 [place]: P: 14 ND: 154 QRS: 22 T: 9 INTERPRETIVE STATEMENTS: Normal sinus rhythm Normal ECG Compared to ECG 03/21/2020 11:52:34 No significant changes Electronically Signed On 06-20-20 12:10:44 DRUG SAFETY SPECIALIST by Senthil Bush
== END 2020-06-19 15:14 | disposition home or self-care (01) ==
LOC: ER 09:46
DX: K85.90 Acute pancreatitis without necrosis or infection, unspecified (principal); I10 Essential (primary) hypertension; E11.40 Type 2 diabetes mellitus with diabetic neuropathy, unspecified; Z20.822 Contact with and (suspected) exposure to COVID-19
CPT/HCPCS: 96361; 93005; 87040 ×2; 85025; 80048; 36415; 80076; 83605 ×2; 84484; 83690; 84145; 0240U; 74177; 76705; 96360; 99284; Q9967

== ENCOUNTER → 2023-08-20 | Emergency (ER) | payer OTHER ==
[~2023-08-20] MED LIST: INSULIN REGULAR (HUMAN) 100 UNIT/ML ONE; NA CHLORIDE 0.9% 1,000 ML ONE
--- OUTSIDE RECORDS SUMMARY | 2023-08-20 17:04 | XMS REPORT | Continuity of Care Document ---
Author Name Unknown Address [address] [place] [address] [facility] thconnect Address [address] [place] [address] Care Team Providers Care Bracelet Maker Novelty Name Role Phone ALESSIO DOMINGO Primary Care Physician Unavaila DELVIS Miner Attending Clinician Unavailable Faith Donovan PTA Attending Clinician Unavail able SHEA HERNANDEZ Attending Clinician Unavailable DIMAS BAKER Attending Clinician Unavailabl e Payers Payer Name Policy Type Policy Number Effective Date Expirati on Date Source [facility] DUAL COMPLETE HMO [id number] 2017 00:00:00 Allergies, Adverse Reactions, Alerts Allergy Name Allergy Type Status Severity Reaction(s) Onset Date Inactive Date Treating Clinician Comments Source [facility] Active Swelling 08-03 00:00: 00 [facility] Encounters Start Date/Time End Date/Time Encounter Type Admission Type Attending Clinicians Care Facility Care Department Encounter ID Source 2019-10-25 11:30:00 2019-10-25 11:30:00 Outpatient DELVIS DYKES [facility] [id number] [facility] 2019-07-28 15:09:42 2019-08-04 11:48:49 Ancillary Visit Faith Donovan [facility] [id number] 2019-08-02 16:00:00 2019-08-02 16:00:00 Outpatient SHEA MISHRA [facility] [id number] [facility] 2019-07-26 11:20:00 2019-07-26 11:20:00 Outpatient DIMAS CARRERA [facility] [id number] [facility] 2019-06-08 00:00:00 2019-06-08 23:59:00 Outpatient DIMAS CARRERA [facility] [id number] [facility] 2019-05-30 15:18:43 2019-05-30 23:59:00 Outpatient DIMAS BAKER [facility] [id number] [facility]
[2023-08-20 17:58] LABS: SARS-CoV-2 Antigen CONTROL BLUE LINE VIS/BG OK; SARS-CoV-2 Antigen Rapid Res Negative (Negative)
[2023-08-20 18:01] LABS: Absolute Basophils 0.1 K/uL (0-0.5); Absolute Eosinophils 0.1 K/uL (0-0.5); Absolute Lymphocytes (CBC) 2.4 K/uL (0.7-4.9); Absolute Monocytes 0.8 K/uL (0.1-1.3); Absolute Neutrophil 6.5 K/uL (1.8-8.0); Basophils % 0.5 % (0-1.3); Eosinophils % 1.1 % (0-4.4); Hematocrit 39.9 % (39.6-49.0); Hemoglobin 13.7 g/dL (13.6-17.9); Lymphocytes % 23.9 % (15.3-44.8); MCHC 34.3 g/dL (32.0-36.0); MCV 87.4 fL (80-100); MPV 9.8 fL (7.6-11.3); Monocytes % 8.5 % (3.3-12.3); Nucleated Red Blood Cells % 0.1 % (0-0); Platelets 274 thou/uL (152-406); RBC Red Blood Cell Count 4.57 M/uL (4.33-5.43); Red Cell Distribution Width 13.3 % (12.1-15.2)
[2023-08-20 18:16] LABS: Anion Gap 9.9 mEq/L (5.0-15.0); Potassium 4.9 mEq/L (3.5-5.1)
--- NOTE | 2023-08-20 18:21 | RAD REPORT ---
EXAM DESCRIPTION: Oliver Mahajan (2 Views)08/20/2023 6:07 pm CLINICAL HISTORY: Cough COMPARISON: 2019 FINDINGS: The lungs appear clear of acute infiltrate. The heart is normal size IMPRESSION: No acute abnormalities displayed
[2023-08-20 21:04] LABS: Albumin 3.4 g/dL (3.4-5.0); Albumin/Globulin Ratio 0.8 (1.1-1.8); Anion Gap 11.2 mEq/L (5.0-15.0); BETA HYDROXYBUTYRATE 0.2 mmol/L (0.02-0.27); Bilirubin Total 0.3 mg/dL (0.2-1.0); Globulin 4.1 g/dL (2.3-3.5); Potassium 5.2 mEq/L (3.5-5.1); Protein, Total 7.5 g/dL (6.4-8.2)
[2023-08-20 23:02] LABS: Sqamous Epithelial <5 /HPF (None Seen); Urine Bacteria <20 /HPF (<20); Urine Bilirubin NEGATIVE (Negative); Urine Blood Negative (Negative); Urine Clarity Clear (Clear); Urine Color Light-Yellow (Yellow); Urine Culture Reflex Order NOT NEEDED; Urine Glucose 4+ (Over) (Negative); Urine Ketones NEGATIVE (Negative); Urine Micro Reflex YN NO BILL MICROSCOPIC; Urine Mucus Slight /HPF (None Seen); Urine Nitrite NEGATIVE (Negative); Urine Protein NEGATIVE (Negative); Urine RBC <5 /HPF (None Seen); Urine Urobilinogen Normal (Normal); Urine WBC <5 /HPF (<5)
--- NOTE | 2023-08-20 23:10 | ER ---
Nurse's Notes [facility] Name: Christopher Cruz Age: 58 yrs Sex: Male : 1965 Arrival Date: 08/20/2023 Time: 17:00 Bed 17 Private MD: Diagnosis: Diabetes mellitus due to underlying condition with hyperglycemia;Cough Presentation: 08/19 17:11 Chief complaint: Patient states: cough and chest congestion that began 2 weeks ago. aa5 Pt's states "his blood sugar has been running high". Coronavirus screen: congestion, cough unrelated to allergies. Ebola Screen: Patient denies travel to an Ebola-affected area in the 21 days before illness onset. Initial Sepsis Screen: Does the patient meet any 2 criteria? No. Patient's initial sepsis screen is negative. Does the patient have a suspected source of infection? No. Patient's initial sepsis screen is negative. Risk Assessment: Do you want to hurt yourself or someone else? Patient reports no desire to harm self or others. Onset of symptoms was July 2023. 17:11 Method Of Arrival: Ambulatory aa5 17:11 Acuity: MONICA 2 aa5 Historical: - Allergies: 17:12 No Known Allergies; aa5 - PMHx: 17:12 Diabetes - IDDM; Hypertension; neuropathy; aa5 - Immunization history:: Adult Immunizations unknown. - Social history:: Smoking status: Patient reports the use of cigarette tobacco products. Screenin:05 [facility] ED Fall Risk Assessment (Adult) History of falling in the last 3 months, bp including since admission No falls in past 3 months (0 pts) Confusion or Disorientation No (0 pts) Intoxicated or Sedated No (0 pts) Impaired Gait No (0 pts) Mobility Assist Device Used No (0 pt) Altered Elimination No (0 pt) Score/Fall Risk Level 0 - 2 = Low Risk Oriented to surroundings, Maintained a safe environment, Hourly rounding (assess needs \\T\\ fall precautionary measures) done. Abuse screen: Denies threats or abuse. Denies injuries from another. Nutritional screening: No deficits noted. Tuberculosis screening: No symptoms or risk factors identified. Assessment: 20:00 General: Appears in no apparent distress. comfortable, Behavior is calm, cooperative, bp appropriate for age. 20:00 Pain: Denies pain. Neuro: Level of Consciousness is awake, alert, obeys commands, bp Oriented to person, place, time, situation. Neuro: Oriented to Forgetful, normal/baseline per girlfriend statement. Cardiovascular: Patient's skin is warm and dry. Respiratory: Airway is patent Respiratory effort is even, unlabored. Respiratory: Reports Congestion. 20:44 Reassessment: Patient appears in no apparent distress at this time. Patient and/or nj1 family updated on plan of care and expected duration. Pain level reassessed. Patient is alert, oriented x 3, equal unlabored respirations, skin warm/dry/pink. 21:42 Reassessment: Patient appears in no apparent distress at this time. Patient and/or nj1 family updated on plan of care and expected duration. Pain level reassessed. Patient is alert, oriented x 3, equal unlabored respirations, skin warm/dry/pink. 22:39 Reassessment: Patient appears in no apparent distress at this time. Patient and/or nj1 family updated on plan of care and expected duration. Pain level reassessed. Patient is alert, oriented x 3, equal unlabored respirations, skin warm/dry/pink. Vital Signs: 17:11 BP 133 / 66; Pulse 88; Resp 17 S; Temp 98(TE); Pulse Ox 98% on R/A; Weight 95.25 kg aa5 (R); Height 5 ft. 7 in. (R); 19:40 BP 136 / 65; Pulse 76; Resp 18; Pulse Ox 98% on R/A; bp 20:43 BP 142 / 75; Pulse 83; Resp 18; Pulse Ox 100% on R/A; nj1 21:20 BP 133 / 64; Pulse 78; Resp 18; Pulse Ox 98% on R/A; nj1 22:38 BP 117 / 71; Pulse 75; Resp 18; Pulse Ox 99% on R/A; nj1 23:29 BP 147 / 67; Pulse 72; Resp 17; Pulse Ox 97% ; jj7 17:11 Body Mass Index 32.89 (95.25 kg, 170.18 cm) aa5 ED Course: 17:03 Patient arrived in ED. im 17:11 Driss Ward PA is PHCP. cp 17:11 Driss Miller MD is Attending Physician. cp 17:11 Arm band placed on. aa5 17:12 Triage completed. aa5 18:08 XRAY Chest Pa And Lat (2 Views) In Process Unspecified. EDMS 19:39 Lucas Napier, RN is Primary Nurse. bp 20:05 Patient has correct armband on for positive identification. Bed in low position. Call bp light in reach. Adult w/ patient. 20:05 Provided Education on: call light, fall precautions. bp 23:29 No provider procedures requiring assistance completed. IV discontinued, intact, jj7 bleeding controlled, No redness/swelling at site. Pressure dressing applied. Administered Medications: 20:05 Drug: Insulin Regular Human Sub-Q 10 units Sub-Q once {Co-Signature: kd3 (bp Maria Teresa Lyons RN).} Route: Sub-Q; Site: right upper arm; 23:00 Follow up: Response: Marked relief of symptoms; Blood sugar is lowered jj7 20:05 Drug: NS 0.9% IV 1000 ml IV at 1 bolus Per protocol; 1000 mL bolus Route: IV; Rate: 1 bp bolus; Site: right antecubital; 23:00 Follow up: IV Status: Completed infusion jj7 21:37 Drug: Insulin Regular Human IVP 10 units IVP once {Co-Signature: me1 (zoey Olivares RN).} Route: IVP; Site: right antecubital; 23:00 Follow up: Response: Marked relief of symptoms; Blood sugar is lowered jj7 21:50 Drug: NS 0.9% IV 1000 ml IV at 1 bolus Per protocol; 1000 mL bolus Route: IV; Rate: 1 nj1 bolus; Site: right antecubital; 23:00 Follow up: IV Status: Completed infusion jj7 Medication: 23:29 VIS not applicable for this client. jj7 Point of Care Testing: Blood Glucose: 17:16 Blood Glucose: High (>450 mg/dL); aa5 Ranges: Outcome: 23:09 Discharge ordered by . edgardo 23:29 Discharged to home ambulatory, with significant other, j7 23:29 Condition: improved 23:29 Discharge instructions given to patient, significant other, Instructed on discharge instructions, medication usage, Demonstrated understanding of instructions, medications, Prescriptions given X 1, 23:34 Patient left the ED. jj7 Signatures: Dispatcher [employer] EDMariza Lee RN RN aa5 Page, EVY Naqvi cp, Brian, RN RN Kandy Kerns RN RN jj7 Ann Wick RN RN nj1 Batsheva Harris Kyli RN kd3 Alaina Olivares RN me1 Corrections: (The following items were deleted from the chart) 17:13 17:12 Social history: Smoking status: Patient denies any tobacco usage or history of. aa5 aa5 17:16 17:11 Acuity: MONICA 3 aa5 aa5 21:42 21:20 Pulse 78bpm; Resp 18bpm; Pulse Ox 98% RA; nj1 nj1
--- NOTE | 2023-08-20 23:10 | EDPHYS ---
Physician Documentation [facility] Name: Christopher Cruz Age: 58 yrs Sex: Male : 1965 Arrival Date: 08/20/2023 Time: 17:00 Bed 17 Private MD: ED Physician Driss Miller HPI: 08/19 18:00 This 58 yrs old Male presents to ER via Ambulatory with complaints of Flu cp Symptoms. 18:00 The patient or guardian reports hyperglycemia, that was potentially precipitated by no cp particular event. Associated signs and symptoms: Pertinent positives: cough, Pertinent negatives: fever, chest pain, abdominal pain, vomiting, diarrhea. Current symptoms: In the emergency department the patient's symptoms are unchanged from the initial presentation, despite home interventions. Historical: - Allergies: 17:12 No Known Allergies; aa5 - PMHx: 17:12 Diabetes - IDDM; Hypertension; neuropathy; aa5 - Immunization history:: Adult Immunizations unknown. - Social history:: Smoking status: Patient reports the use of cigarette tobacco products. ROS: 18:05 Eyes: Negative for injury, pain, redness, and discharge, cp 18:05 Constitutional: Positive for body aches, Negative for fever, poor PO intake, 18:05 ENT: Negative for drainage from ear(s), ear pain, sore throat, difficulty swallowing, difficulty handling secretions, 18:05 Cardiovascular: Negative for chest pain, 18:05 Respiratory: Positive for cough, Negative for shortness of breath, sputum production, wheezing, 18:05 Abdomen/GI: Negative for abdominal pain, vomiting, diarrhea, constipation, 18:05 Neuro: Negative for altered mental status, headache, syncope, 18:05 All other systems are negative, Exam: 18:15 Constitutional: The patient appears in no acute distress, alert, awake, cp non-diaphoretic, non-toxic, well developed, well nourished, obese, 18:15 Head/Face: Normocephalic, atraumatic. cp 18:15 Eyes: Periorbital structures: appear normal, Conjunctiva: normal, no exudate, no injection, Sclera: no appreciated abnormality, Lids and lashes: appear normal, bilaterally, 18:15 ENT: External ear(s): are unremarkable, Nose: is normal, Mouth: Lips: moist, Oral mucosa: pink and intact, moist, Posterior pharynx: is normal, airway is patent, no erythema, no exudate, 18:15 Neck: ROM/movement: is normal, is supple, without pain, no range of motions limitations, no meningismus, no nuchal rigidity, 18:15 Chest/axilla: Inspection: normal, 18:15 Cardiovascular: Rate: normal, Rhythm: regular, Edema: is not appreciated, JVD: is not appreciated, 18:15 Respiratory: the patient does not display signs of respiratory distress, Respirations: normal, no use of accessory muscles, no retractions, labored breathing, is not present, Breath sounds: are clear throughout, no decreased breath sounds, no stridor, no wheezing, 18:15 Abdomen/GI: Inspection: abdomen appears normal, Palpation: abdomen is soft and non-tender, in all quadrants, 18:15 Skin: cellulitis, is not appreciated, no rash present. 18:15 Neuro: Orientation: to person, place \T\ time. Mentation: is normal, Motor: moves all fours, strength is normal, Sensation: is normal, Vital Signs: 17:11 BP 133 / 66; Pulse 88; Resp 17 S; Temp 98(TE); Pulse Ox 98% on R/A; Weight 95.25 kg aa5 (R); Height 5 ft. 7 in. (R); 19:40 BP 136 / 65; Pulse 76; Resp 18; Pulse Ox 98% on R/A; bp 20:43 BP 142 / 75; Pulse 83; Resp 18; Pulse Ox 100% on R/A; nj1 21:20 BP 133 / 64; Pulse 78; Resp 18; Pulse Ox 98% on R/A; nj1 22:38 BP 117 / 71; Pulse 75; Resp 18; Pulse Ox 99% on R/A; nj1 23:29 BP 147 / 67; Pulse 72; Resp 17; Pulse Ox 97% ; jj7 17:11 Body Mass Index 32.89 (95.25 kg, 170.18 cm) aa5 MDM: 17:11 Patient medically screened. cp 18:00 Differential diagnosis: DKA, hyperglycemia, sepsis, pneumonia, viral illness. cp 23:08 Data reviewed: vital signs, nurses notes, lab test result(s), radiologic studies, plain cp films, and as a result, I will discharge patient. 23:08 I considered the following discharge prescriptions or medication management in the emergency department Medications were administered in the Emergency Department. See MAR. Care significantly affected by the following chronic conditions: Diabetes, Hypertension. Counseling: I had a detailed discussion with the patient and/or guardian regarding the historical points, exam findings, and any diagnostic results supporting the discharge/admit diagnosis, lab results, radiology results, to return to the emergency department if symptoms worsen or persist or if there are any questions or concerns that arise at home. Response to treatment: the patient's symptoms have markedly improved after treatment, and as a result, I will discharge patient. 08/19 17:15 Order name: Influenza Screen (a \T\ B); Complete Time: 19:42 08/19 17:15 Order name: SARS RAPID; Complete Time: 19:42 08/19 17:16 Order name: Glucose; Complete Time: 19:42 aa5 08/19 17:28 Order name: Glucose, Ancillary Testing; Complete Time: 17:35 EDMS 08/19 17:35 Interpretation: Reviewed. 08/19 17:33 Order name: CBC with Diff; Complete Time: 19:42 mb9 08/19 17:33 Order name: Basic Metabolic Panel; Complete Time: 19:42 mb9 08/19 19:42 Interpretation: Normal except: NA 133; GLUC 558; BUN 41; CRE 1.76; GFR 44. 08/19 17:35 Order name: CMP; Complete Time: 21:09 08/19 21:09 Interpretation: Normal except: NA 133; K 5.2; GLUC 549; BUN 44; CRE 1.64; GFR 48; AST cp 6; GLOB 4.1; A/G 0.8. 08/19 17:35 Order name: Lipase; Complete Time: 21:09 08/19 17:35 Order name: BETA HYDROXYBUTYRATE; Complete Time: 21:09 08/19 20:48 Order name: Glucose, Ancillary Testing; Complete Time: 21:09 EDMS 08/19 20:51 Order name: Glucose, Ancillary Testing; Complete Time: 21:09 EDMS 08/19 21:49 Order name: Glucose, Ancillary Testing; Complete Time: 21:58 EDMS 08/19 21:58 Interpretation: Reviewed. 08/19 22:07 Order name: Urinalysis W/Microscopic; Complete Time: 23:07 08/19 22:55 Order name: Glucose, Ancillary Testing; Complete Time: 23:07 EDMS 08/19 23:07 Interpretation: Reviewed. cp 08/19 17:15 Order name: XRAY Chest Pa And Lat (2 Views); Complete Time: 19:42 cp 08/19 17:15 Order name: Accucheck Blood Glucose; Complete Time: 17:16 cp 08/19 19:09 Order name: Labs - recollect needed: Additional Green Top Needed; Complete Time: 20:22 ds4 Administered Medications: 20:05 Drug: Insulin Regular Human Sub-Q 10 units Sub-Q once {Co-Signature: kd3 (bp Maria Teresa Lyons RN).} Route: Sub-Q; Site: right upper arm; 23:00 Follow up: Response: Marked relief of symptoms; Blood sugar is lowered j7 20:05 Drug: NS 0.9% IV 1000 ml IV at 1 bolus Per protocol; 1000 mL bolus Route: IV; Rate: 1 bp bolus; Site: right antecubital; 23:00 Follow up: IV Status: Completed infusion jj7 21:37 Drug: Insulin Regular Human IVP 10 units IVP once {Co-Signature: me1 (Marshall, nehemias1 Alaina RN).} Route: IVP; Site: right antecubital; 23:00 Follow up: Response: Marked relief of symptoms; Blood sugar is lowered jj7 21:50 Drug: NS 0.9% IV 1000 ml IV at 1 bolus Per protocol; 1000 mL bolus Route: IV; Rate: 1 nj1 bolus; Site: right antecubital; 23:00 Follow up: IV Status: Completed infusion jj7 Point of Care Testing: Blood Glucose: 17:16 Blood Glucose: High (>450 mg/dL); aa5 Ranges: Critical Glucose Levels:Adult <50 mg/dl or >400 mg/dl <40 mg/dl or >180 mg/dl Disposition Summary: 08/20/23 23:09 Discharge Ordered Notes: Location: Home cp Problem: chronic cp Symptoms: have improved cp Condition: Stable cp Diagnosis - Diabetes mellitus due to underlying condition with hyperglycemia cp - Cough cp Followup: cp - With: Private Physician - When: 2 - 3 days - Reason: Recheck today's complaints Discharge Instructions: - Discharge Summary Sheet cp - Hyperglycemia cp - Blood Glucose Monitoring, Adult cp - Diabetes Mellitus and Nutrition, Adult cp Forms: - Medication Reconciliation Form cp - Thank You Letter cp - Antibiotic Education cp - Prescription Opioid Use cp - Patient Portal Instructions cp - Leadership Thank You Letter cp Prescriptions: - Bromfed DM 2-30-10 mg/5 mL Oral syrup - administer 10 milliliter ORAL route 4 times per day; 240 milliliter; Refills: cp 0, Product Selection Permitted Signatures: Dispatcher [employer] EDMariza Lee, RN RN aa5 Thanh Cortes ds4 Driss Ward, EVY PA cp Lucas Napier RN RN bp Ann Wick RN RN nj1 Kandy Pacheco RN jj7 Maria Teresa Lyons RN kd3 Alaina Olivares RN me1 Corrections: (The following items were deleted from the chart) 17:13 17:12 Social history: Smoking status: Patient denies any tobacco usage or history of. aa5 aa5
[2023-08-21 00:07] VITALS: BP 147/67; TEMP 98; O2SAT 97
== END ==
LOC: ER 17:00
DX: E11.65 Type 2 diabetes mellitus with hyperglycemia (principal); R05.9 Cough, unspecified; Z11.52 Encounter for screening for COVID-19; Z72.0 Tobacco use
CPT/HCPCS: 96361; 85025; 81001; 80048; 36415; 82947 ×6; 83690; 80053; 82010; 87804 ×2; 71046; 96372; 96374; 99284; 87811; J1815 ×2; J7030 ×2

== ENCOUNTER 2024-04-20 13:19 | Emergency (ER) | payer OTHER ==
--- OUTSIDE RECORDS SUMMARY | 2024-04-20 13:22 | XMS REPORT | Continuity of Care Document ---
Author Name Unknown Address [address] [facility] [address] [place] [address] [facility] thconnect Address [address] [facility] [address] [place] [address] Care Team Providers Care Ehr Trainer Name Role Phone PCP, PATIENT DOES NOT HAVE A Primary Care Physic marek Unavailable Agustin Patel Attending Clinician Unavailable ESTHER RAY Attending Clinician Unavailable JUDI MEI Attending Clinician Unavailable REJI NG Attending Clinician U REJI Armstrong Attending Clinician U Esther Gudino Attending Clinician Draw, [facility] Attending Clinician UnavailReji Villasenor MD Attending Clinicia n JOSÉ GABRIEL Attending Clinician Unavailable Lab, Ang - Db Attending Clinician Unavailable MIGUEL REDDY Attending Clinician Unavail able MIGUEL REDDY Attending Clinician Unavail able Miguel Reddy MD Attending Clinician Juan Mcclendon DO Attending Clinician DELVIS SORENSEN Attending Clinician Unavailable Faith Donovan PTA Attending Clinician Unavail able SHEA HERNANDEZ Attending Clinician Unavailable DIMAS BAKER Attending Clinician UnavailMIGUEL Smith Admitting Clinician Unavail able Payers Payer Name Policy Type Policy Number Effective Date Expirati on Date Source [employer] TRUE CHOICE MEDICARE [id number] 2023 00:00:[address] [facility] DUAL COMPLETE HMO [id number] 2017 00:00:00 Problems Condition Name Condition Details Condition Category Status Onset Date Resolution Date Last Treatment Date Treating Clinician Comments Source Hypoxic brain injury Hypoxic brain injury Disease Active -13 00:00: 00 [facility] Memory loss, short term Memory loss, short term Disease Active 09-30 00:00: 00 Last Assessmen t & Plan: Formattin g of this note might be different from the original. Chronic. 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 Disease [facility] 2018-06 00:00: 00 [facility] Coronary arterioscl erosis Coronary arterioscl erosis Disease Active 01-13 00:00: 00 [facility] Diverticul osis of colon Diverticul osis of colon Disease Active 01-13 00:00: 00 [facility] Male hypogonadi sm Male hypogonadi sm Disease Active 01-13 00:00: 00 [facility] Localized edema due to fluid overload Localized edema due to fluid overload Disease Active 01-13 00:00: 00 [facility] Mixed hyperlipid emia Mixed hyperlipid emia Disease Active 01-13 00:00: 00 [facility] Obstructiv e sleep apnea syndrome Obstructiv e sleep apnea syndrome Disease Active 01-13 00:00: 00 [facility] Nonalcohol ic steatohepa titis (LOVE) Nonalcohol ic steatohepa titis (LOVE) Disease Active 01-13 00:00: 00 [facility] Peripheral arterial occlusive disease Peripheral arterial occlusive disease Disease Active 01-13 00:00: 00 [facility] Proteinuri a Proteinuri a Disease [facility] 01-13 00:00: 00 [facility] Stage 3a chronic kidney disease Stage 3a chronic kidney disease Disease Active 01-13 00:00: 00 [facility] Hyperkalem ia Hyperkalem ia Disease [facility] 01-13 00:00: 00 [facility] Cigarette smoker Cigarette smoker Disease Active 01-13 00:00: 00 [facility] Diabetes Diabetes Disease Active 08-03 00:00: 00 [facility] Type 2 diabetes mellitus with chronic kidney disease Type 2 diabetes mellitus with chronic kidney disease Disease [facility] 08-03 00:00: 00 [facility] Type 2 diabetes mellitus with chronic kidney disease Type 2 diabetes mellitus with chronic kidney disease Disease [facility] 08-03 00:00: 00 [facility] Dyslipidem ia Dyslipidem ia Disease Active 08-03 00:00: 00 [facility] Neuropathy Neuropathy Disease Active 08-03 00:00: 00 [facility] [id number] Essential hypertensi on Problem [facility] [id number] Impingemen t syndrome of right shoulder Problem [facility] [id number] Pain in joint of right shoulder Problem [facility] [id number] Subacromia l bursitis of right shoulder joint Problem [facility] [id number] Dementia with anxiety, unspecifie d dementia severity, unspecifie d dementia type Problem [facility] [id number] Pain in joint of right foot Problem [facility] [id number] Metatarsal jeanie, right foot Problem [facility] [id number] Type 2 diabetes mellitus with hyperglyce annette, without long-term current use of insulin Problem [facility] Allergies, Adverse Reactions, Alerts Allergy Name Allergy Type Status Severity Reaction(s) Onset Date Inactive Date Treating Clinician Comments Source AMLODIPI NE DRUG INGREDI Active Swelling 08-03 00:00: 00 [facility] Amlodipi ne Propensi ty to adverse reaction s Active Swelling 08-03 00:00: 00 [facility] NO KNOWN ALLERGIE S Drug Class Active [facility] Social History Social Habit Start Date Stop Date Quantity Comments Source [facility] of [facility] Use Current Smoker [facility] Sex Assigned At [facility] Tobacco use and exposure 2023-09-18 00:00:00 2023-09-18 00:00:00 Smokeless tobacco non-user [facility] History of Social function 2023-09-18 00:00:00 2023-09-18 00:00:00 [facility] Smoking Status Start Date Stop Date Source Smokes tobacco daily 2023-09-18 00:00:00 [facility] Medications Ordered Medication Name Filled Medication Name Start Date Stop Date Current Medication? Ordering Clinician Indication Dosage Frequency Signature (SIG) Comments Components Source tirzepatide (MOUNJARO) 2.5 mg/0.5 mL subcutaneou s injection pen 2023-06 00:00: 00 Yes [id number] 2.5mg inject 2.5 mg under the skin weekly. This is the initial dose. [facility] tirzepatide (MOUNJARO) 5 mg/0.5 mL subcutaneou s injection pem 2023-06 00:00: 00 Yes [id number] 9109 5mg inject 5 mg under the skin weekly. 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 Please HALF dose if patient eats less than half meal OR if blood glucose 80 - 120 mg/dL, HOLD DOSE if NPO or BG < 80 . [facility] insulin lispro (HUMALOG KWIKPEN INSULIN) 100 unit/mL pen injector 2023-06 00:00: 00 Yes [id number] 9U inject 9 Units under the skin in the morning and 9 Units at noon and 9 Units in the evening. inject before meals. Please HALF dose if patient eats less than half meal OR if blood glucose 80 - 120 mg/dL, HOLD DOSE if BG < 80 . [facility] Insulin [place], Disposable, (BD INSULIN PEN NEEDLE UF) 31 gauge x 5/16" Ndle 2023-06 00:00: 00 Yes [id number] Use as directed to administer insulin for management of his Type 2 diabetes [facility] metFORMIN 1,000 mg tablet 01-07 09:41: 35 01-07 00:00 :00 No 1000mg Take 1 tablet by mouth daily with breakfast. [facility] insulin lispro protamin/li spro (HUMALOG MIX 75-25 KWIKPEN SC) 01-07 09:34: 56 01-07 00:00 :00 No inject under the skin. 25 units q am and 20 units q hs [facility] metFORMIN 1,000 mg tablet 01-07 00:00: 00 Yes [id number] 1000mg Take 1 tablet by mouth in the morning and 1 tablet in the evening. Take with meals. [facility] rosuvastati n 20 mg tablet 01-07 00:00: 00 Yes [id number] 20mg Take 1 tablet by mouth at bedtime. [facility] Blood-Gluco se Sensor (FREESTYLE HAYDEN 3 SENSOR) Natasha 01-07 00:00: 00 04-15 00:00 :00 No [id number] Use as directed every 2 weeks [facility] Blood-Gluco se Meter,Vitaliy kehindeous (FREESTYLE HAYDEN 3 READER) Misc 01-07 00:00: 00 04-15 00:00 :00 No [id number] Use as directed [facility] insulin degludec (TRESIBA FLEXTOUCH U-200) 200 unit/mL (3 mL) InPn 01-07 00:00: 00 04-15 00:00 :00 No [id number] 28U inject 28 Units under the skin at bedtime. Please HALF dose if patient eats less than half meal OR if blood glucose 80 - 120 mg/dL, HOLD DOSE if NPO or BG < 80 . [facility] Insulin [place], Disposable, (RADHA PEN NEEDLE) 32 gauge x 5/32" Ndle 01-07 00:00: 00 04-15 00:00 :00 No [id number] USE TO INJECT INSULIN 4 TIMES DAILY, DX:E11.9 [facility] insulin lispro (HUMALOG KWIKPEN INSULIN) 100 unit/mL pen injector 01-07 00:00: 00 04-15 00:00 :00 No [id number] 9U inject 9 Units under the skin in the morning and 9 Units at noon and 9 Units in the evening. inject before meals. Please HALF dose if patient eats less than half meal OR if blood glucose 80 - 120 mg/dL, HOLD DOSE if NPO or BG < 80 . [facility] rosuvastati n 20 mg tablet 09-30 00:00: 00 01-07 00:00 :00 No 20mg Take 1 tablet by mouth at bedtime. [facility] gadoteridol (PROHANCE-2 0 mL) injection 0.2 mL/kg 21:15: 00 09-24 21:03 :00 No [id number] .2mL/kg 0.2 mL/kg, Intravenou s, ONCE, 1 dose, On Thu09/25/23 at 1615, Routine [facility] tiZANidine 4 mg tablet 09-17 10:02: 31 09-17 00:00 :00 No 4mg Take 1 tablet by mouth in the morning and 1 tablet in the evening. [facility] isosorbide mononitrate 30 mg 24 hr tablet 09-17 10:02: 16 09-17 00:00 :00 No 30mg Take 1 tablet by mouth. [facility] HYDROcodone -acetaminop hen (NORCO) 5-325 mg tablet 09-17 10:01: 51 09-17 00:00 :00 No 1{tbl} Take 1 tablet by mouth every 6 (six) hours as needed. [facility] furosemide (LASIX) 20 mg tablet 09-17 10:01: 35 09-17 00:00 :00 No 20mg Take 1 tablet by mouth in the morning. [facility] Cholecalcif nieves, Vitamin D3, (VITAMIN D3) 2,000 unit capsule 09-17 10:01: 07 09-17 00:00 :00 No Take by mouth. [facility] carvedilol 25 mg tablet 09-17 10:00: 58 09-17 00:00 :00 No 50mg Take 50 mg by mouth 2 (two) times daily with meals. [facility] aspirin 81 mg EC tablet 09-17 10:00: 39 09-17 00:00 :00 No 81mg Take 81 mg by mouth daily. [facility] foLIC acid 1 mg tablet 09-17 09:57: 17 Yes 1mg Take 1 tablet by mouth in the morning. [facility] metFORMIN 1,000 mg tablet 09-09 00:00: 00 10-10 04:59 :00 No 1000mg Take 1 tablet by mouth in the morning and 1 tablet in the evening. Take with meals. [facility] Diclofenac Sodium 1 % gel 3-03 00:00: 00 09-17 00:00 :00 No [id number] Apply to area(s) 2 (two) times daily as needed for Pain (scale 4-6) (Apply 2 g do not exceed 4 g in a day). [facility] blood sugar diagnostic (ONETOUCH VERIO) strip 07-13 00:00: 00 04-15 00:00 :00 No [id number] Use to check glucose 3X daily. DX:E11.40 [facility] lancets 33 gauge Misc 07-13 00:00: 00 04-15 00:00 :00 No [id number] Use as directed, TID, DX:E11.9 [facility] Insulin [place], Disposable, (RADHA PEN NEEDLE) 32 gauge x 5/32" Ndle 07-13 00:00: 00 01-07 00:00 :00 No [id number] USE TO INJECT INSULIN 4 TIMES DAILY, DX:E11.9 [facility] insulin glargine U-300 conc (TOUJEO SOLOSTAR U-300 INSULIN) 300 unit/mL (1.5 mL) InPn 07-13 00:00: 00 09-17 00:00 :00 No [id number] 66U inject 66 Units under the skin every morning. [facility] insulin lispro (HUMALOG KWIKPEN INSULIN) 100 unit/mL pen injector 07-13 00:00: 00 09-17 00:00 :00 No [id number] 12U inject 12 Units under the skin 3 (three) times daily before meals. [facility] dulaglutide (TRULICITY) 1.5 mg/0.5 mL PnIj 07-13 00:00: 00 09-17 00:00 :00 No [id number] 1.5mg inject 1.5 mg under the skin weekly. [facility] metformin ER 500 mg 24 hr tablet 07-13 00:00: 00 09-17 00:00 :00 No [id number] TAKE 1 TABLET BY MOUTH THREE TIMES DAILY WITH MEALS [facility] ROSUVASTATI N 40 mg tablet 02-21 00:00: 00 09-17 00:00 :00 No [id number] 40mg TAKE 1 TABLET BY MOUTH AT BEDTIME [facility] Depo Medrol (40mg) Depo Medrol (40mg) 11-04 00:00: 00 No 40mg [facility] LIDOCAINE HCL 10MG/ML LIDOCAINE HCL 10MG/ML 11-04 00:00: 00 No 10mg [facility] Rosuvastati n Calcium 20 MG Rosuvastati n Calcium 20 MG 09-20 00:00: 00 No 1{capsu le} QD Rosuvastat in Calcium 20 MG metFORMIN HCl 500 MG metFORMIN HCl 500 MG 09-20 00:00: 00 No 1{table t_with_ a_meal} QD metFORMIN HCl 500 MG Aspirin 81 81 MG Aspirin 81 81 MG 09-20 00:00: 00 No 1{table t} QD Aspirin 81 81 MG Carvedilol 25 MG Carvedilol 25 MG 09-20 00:00: 00 No Carvedilol 25 MG Lasix 20 MG Lasix 20 MG 09-20 00:00: 00 No 1{table t} QD Lasix 20 MG tiZANidine HCl 4 MG tiZANidine HCl 4 MG 09-20 00:00: 00 No 1{table t_as_ne eded} TID tiZANidine HCl 4 MG Isosorbide Mononitrate ER 30 MG Isosorbide Mononitrate ER 30 MG 09-20 00:00: 00 No 1{table t_in_th e_morni ng} QD Isosorbide Mononitrat e ER 30 MG FREESTYLE HAYDEN 10 DAY SENSOR Kit 2-11 00:00: 00 01-07 00:00 :00 No [id number] USE ONE EVERY 10 DAYS [facility] flash glucose scanning reader (FREESTYLE HAYDEN 10 DAY READER) [facility] 2017-06 00:00: 00 01-07 00:00 :00 No [id number] 1{each} 1 Each daily. [facility] Blood-Gluco se Meter Kit 08-03 00:00: 00 Yes [id number] Use as directed, TID, DX:E11.9 [facility] OneTouch Verio - OneTouch Verio - No OneTouch Verio - Tresiba FlexTouch 200 UNIT/ML Tresiba FlexTouch 200 UNIT/ML No Tresiba FlexTouch 200 UNIT/ML HYDROcodone -Acetaminop hen 7.5-325 MG HYDROcodone -Acetaminop hen 7.5-325 MG No HYDROcodon e-Acetamin ophen 7.5-325 MG HumaLOG KwikPen 100 UNIT/ML HumaLOG KwikPen 100 UNIT/ML No HumaLOG KwikPen 100 UNIT/ML amLODIPine Besylate 10 MG amLODIPine Besylate 10 MG No amLODIPine Besylate 10 MG Lisinopril 10 MG Lisinopril 10 MG No Lisinopril 10 MG DULoxetine HCl 30 MG DULoxetine HCl 30 MG No DULoxetine HCl 30 MG busPIRone HCl 15 MG busPIRone HCl 15 MG No busPIRone HCl 15 MG metFORMIN HCl 1000 MG metFORMIN HCl 1000 MG No 1{table t_with_ a_meal} BID metFORMIN HCl 1000 MG Gabapentin 300 MG Gabapentin 300 MG No Gabapentin 300 MG Immunizations Ordered Immunization Name Filled Immunization Name Date Status Comments Source Influenza Virus Vaccine Quad .5 mL IM 6+ MO (FLUZONE/FLULAVAL/F LUARIX) 2019-07-13 00:00:00 Completed Influenza Virus Vaccine Quad .5 mL IM 6+ MO (FLUZONE/FLULAVAL/F LUARIX) Unknown Completed [facility] Influenza Virus Vaccine Quad .5 mL IM 6+ MO (FLUZONE/FLULAVAL/F LUARIX) Unknown Completed [facility] Influenza Virus Vaccine Quad .5 mL IM 6+ MO (FLUZONE/FLULAVAL/F LUARIX) Unknown Completed [facility] Influenza Virus Vaccine Quad .5 mL IM 6+ MO (FLUZONE/FLULAVAL/F LUARIX) Unknown Completed [facility] Influenza Virus Vaccine Quad .5 mL IM 6+ MO (FLUZONE/FLULAVAL/F LUARIX) Unknown Completed [facility] Influenza Virus Vaccine Quad .5 mL IM 6+ MO (FLUZONE/FLULAVAL/F LUARIX) Unknown Completed [facility] Fluarix (IIV3) - SDS - 0.5mL Fluarix (IIV3) - SDS - 0.5mL Unknown Completed [facility] Vital Signs Vital Name Observation Time Observation Value Comments S sumeet Systolic blood pressure 2024-04-15 15:17:00 136 mm[Hg] [facility] Diastolic blood pressure 2024-04-15 15:17:00 72 mm[Hg] [facility] Heart rate 2024-04-15 15:17:00 90 /min [facility] Body height 2024-04-15 15:17:00 170.2 cm [facility] Body weight 2024-04-15 15:17:00 98.068 kg [facility] BMI 2024-04-15 15:17:00 33.86 kg/m2 [facility] Oxygen saturation in Arterial blood by Pulse oximetry 2024-04-15 15:17:00 96 /min [facility] height 2024-04-08 08:20:00 67 [in_i] Commo n [facility] weight 2024-04-08 08:20:00 214.4 [lb_av] Co mmon [facility] temperature 2024-04-08 08:20:00 97.0 [degF] Com mon [facility] bmi 2024-04-08 08:20:00 33.58 kg/m2 Comm on [facility] oximetry 2024-04-08 08:20:00 96 % Commo n [facility] respiratory rate 2024-04-08 08:20:00 16 /min [facility] blood pressure systolic 2024-04-08 08:20:00 109 mm[Hg] [facility] blood pressure diastolic 2024-04-08 08:20:00 61 mm[Hg] [facility] height 2024-03-25 11:00:00 67 [in_i] Commo n [facility] weight 2024-03-25 11:00:00 213.8 [lb_av] Co mmon [facility] temperature 2024-03-25 11:00:00 98.0 [degF] Com mon [facility] bmi 2024-03-25 11:00:00 33.48 kg/m2 Comm on [facility] oximetry 2024-03-25 11:00:00 99 % Commo n [facility] respiratory rate 2024-03-25 11:00:00 16 /min [facility] blood pressure systolic 2024-03-25 11:00:00 134 mm[Hg] [facility] blood pressure diastolic 2024-03-25 11:00:00 72 mm[Hg] [facility] Systolic blood pressure 2024-02-12 14:54:00 123 mm[Hg] [facility] Diastolic blood pressure 2024-02-12 14:54:00 73 mm[Hg] [facility] Heart rate 2024-02-12 14:54:00 82 /min [facility] Body height 2024-02-12 14:54:00 170.2 cm [facility] Body weight 2024-02-12 14:54:00 97.705 kg [facility] BMI 2024-02-12 14:54:00 33.74 kg/m2 [facility] Oxygen saturation in Arterial blood by Pulse oximetry 2024-02-12 14:54:00 97 /min [facility] Systolic blood pressure 2024-01-08 14:00:00 133 mm[Hg] [facility] Diastolic blood pressure 2024-01-08 14:00:00 82 mm[Hg] [facility] Heart rate 2024-01-08 14:00:00 82 /min [facility] Respiratory rate 2024-01-08 14:00:00 18 /min [facility] Body height 2024-01-08 14:00:00 170.2 cm [facility] 2024-01-08 14:00:00 99.882 [facility] BMI 2024-01-08 14:00:00 34.49 kg/m2 [facility] Oxygen saturation in Arterial blood by Pulse oximetry 2024-01-08 14:00:00 99 /min [facility] Systolic blood pressure 2023-11-20 19:33:00 138 mm[Hg] [facility] Diastolic blood pressure 2023-11-20 19:33:00 70 mm[Hg] [facility] Heart rate 2023-11-20 19:33:00 89 /min [facility] Respiratory rate 2023-11-20 19:33:00 18 /min [facility] Body height 2023-11-20 19:33:00 170.2 cm [facility] Body weight 2023-11-20 19:33:00 98.612 kg [facility] BMI 2023-11-20 19:33:00 34.05 kg/m2 [facility] Oxygen saturation in Arterial blood by Pulse oximetry 2023-11-20 19:33:00 96 /min [facility] Systolic blood pressure 2023-09-18 14:54:00 135 mm[Hg] [facility] Diastolic blood pressure 2023-09-18 14:54:00 69 mm[Hg] [facility] Heart rate 2023-09-18 14:54:00 89 /min [facility] Respiratory rate 2023-09-18 14:54:00 18 /min [facility] Body height 2023-09-18 14:54:00 170.2 cm [facility] Body weight 2023-09-18 14:54:00 97.07 kg [facility] BMI 2023-09-18 14:54:00 33.52 kg/m2 [facility] Oxygen saturation in Arterial blood by Pulse oximetry 2023-09-18 14:54:00 98 /min [facility] Procedures Procedure Date / Time Performed Performing Clinicia n Source POCT HEMOGLOBIN A1C TEST 2024-01-08 14:16:00 Esther Ray [facility] MR BRAIN W WO CONTRAST 2023-09-25 21:05:00 Madhu Reddy [facility] Encounters Start Date/Time End Date/Time Encounter Type Admission Type Attending [facility] Care Facility Care Department Encounter ID Source 2024-03-25 09:27:01 Outpatient Agustin Patel [facility] [id number] [facility] 2024-07-22 15:00:00 2024-07-22 15:00:00 Outpatient R ESTHER RAY [facility] [id number] [facility] 2024-04-20 11:00:00 2024-04-20 11:00:00 Outpatient R [facility] [id number] [facility] 2024-04-15 09:30:00 2024-04-15 10:11:41 Outpatient R ESTHER RAY [facility] [id number] [facility] 2024-04-15 09:30:00 2024-04-15 10:11:41 Office Visit Esther Ray [facility] [id number] [facility] 2024-04-08 00:00:00 2024-04-08 00:00:00 OFFICE VISIT ESTAB PT LEVEL 4 [facility] ST[facility] [id number] [facility] 2024-04-08 00:00:00 2024-04-08 00:00:00 (TEL) [facility] [id number] [facility] 2024-03-26 00:00:00 2024-03-26 00:00:00 (TEL) [facility]LMLC ST[facility] [id number] [facility] 2024-03-25 00:00:00 2024-03-25 00:00:00 OFFICE VISIT NEW PT LEVEL 4 [facility] [id number] [facility] 2024-03-10 00:00:00 2024-03-10 10:27:37 [facility] [id number] [facility] 2024-02-12 11:30:00 2024-02-12 11:45:00 Carbonator Visit Draw, [facility] Reji Sierra, [facility] [id number] [facility] 2024-02-12 10:00:00 2024-02-12 11:00:00 Office Visit Reji Sierra [facility] [id number] [facility] 2024-02-12 10:00:00 2024-02-12 10:00:00 Outpatient R REJI SIERRA JORGE [facility] [id number] [facility] 2024-01-15 00:00:00 2024-01-26 09:28:01 Telephone [facility] [id number] [facility] 2024-01-13 00:00:00 2024-01-13 17:20:13 Letter (Out) [facility] 1.20.114 350.1.13.10 4.2.7.2.686 [id number] [facility] 2024-01-12 09:30:00 2024-01-12 09:30:00 Outpatient R JOSÉ GABRIEL [facility] [id number] [facility] 2024-01-08 11:45:00 2024-01-08 12:00:00 Carbonator Visit Lab, Ang - Esther Landon, Ang - Raulito [facility] 1.84.114 350.1.13.10 4.2.7.2.686 [id number] [facility] 2024-01-08 11:45:00 2024-01-08 10:54:10 Outpatient R ESTHER RAY [facility] [id number] [facility] 2024-01-08 09:00:00 2024-01-08 09:54:11 Office Visit Esther Ray [facility] 1.84.114 350.1.13.10 4.2.7.2.686 [id number] [facility] 2023-11-20 14:40:00 2023-11-20 15:23:07 Outpatient MIGUEL VANCE HOWARD [facility] [id number] [facility] 2023-11-20 14:40:00 2023-11-20 15:23:07 Office Visit Miguel Reddy [facility] 1.84.114 350.1.13.10 4.2.7.2.686 [id number] [facility] 2023-10-08 00:00:00 2023-10-08 08:41:46 Letter (Out) Juan Mcclendon [facility] 1.114 350.1.13.10 4.2.7.2.686 [id number] [facility] 2023-10-05 00:00:00 2023-10-05 00:00:00 Telephone Miguel Reddy [facility] 1.2.840.114 350.1.13.10 4.2.7.2.686 [id number] [facility] 2023-09-25 15:01:20 2023-09-25 23:59:00 Outpatient MIGUEL VANCE HOWARD [facility] [id number] [facility] 2023-09-25 15:00:00 2023-09-25 23:59:00 Hospital Encounter Miguel Reddy [facility] 1..840.114 350.1.13.10 4.2.7.2.686 [id number] [facility] 2023-09-25 00:00:00 2023-09-25 00:00:00 Outpatient MIGUEL VANCE HOWARD [facility] [id number] [facility] 2023-09-18 10:00:00 2023-09-18 10:51:29 Outpatient MIGUEL VANCE HOWARD [facility] [id number] [facility] 2023-09-18 10:00:00 2023-09-18 10:51:29 Office Visit [facility] 1.2.840.114 350.1.13.10 4.2.7.2.686 [id number] [facility] 2019-10-25 11:30:00 2019-10-25 11:30:00 Outpatient DELVIS DYKES [facility] [id number] [facility] 2019-07-28 15:09:42 2019-08-04 11:48:49 Ancillary Visit Faith Donovan [facility] 1.2.840.114 350.1.13.10 4.2.7.2.686 [id number] 2019-08-02 16:00:00 2019-08-02 16:00:00 Outpatient SHEA MISHRA [facility] [id number] [facility] 2019-07-26 11:20:00 2019-07-26 11:20:00 Outpatient DIMAS CARRERA [facility] [id number] [facility] 2019-06-08 00:00:00 2019-06-08 23:59:00 Outpatient DIMAS CARRERA [facility] [id number] [facility] 2019-05-30 15:18:43 2019-05-30 23:59:00 Outpatient DIMAS BAKER [facility] [id number] [facility] Results Test Description Test Time Test Comments Results Result Co mments Source [facility] BRAIN W WO [id number] 21:48:02MR BRAIN W WO CONTRAST PROVIDED INDICATION: 58 years-old Male; Memory loss Probable hypoxic brain injury. Fixation amnesia, concern for HBI tohippocampus / L temporal lobe. 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 Patient has memory deficits and left-sided hearing loss. COMPARISON: None TECHNIQUE: Multiplanar multiweighted MR of the brain was performed beforeand after the administration of gadolinium based intravenous contrast. FINDINGS: The ventricles and sulci are normal incaliber and configuration. The basalcisterns are unremarkable. No mass effect, midline shift or pathological extra-axial fluid collectionis present. ? No restricted diffusion to suggest acute/subacute ischemia. There are a fewscattered T2/FLAIR hyperintensities in the subcortical and periventricularwhite matter. While nonspecific, these can be seen as sequela of chronicsmall vessel ischemia. No ab normal enhancement identified. Nosusceptibility signal loss. No abnormal T2 signal in the paranasalsinuses or mastoid air cells. The T2 flow voids for the major intracranial vessels are unremarkable. Nosuspicious marrow signal. [facility] Notes Date/Time Note Provider Source 2024-03-10 09:35:05 Pia beltran/Plickers states that she's returning a call from the nurse. She states that she doesn't know who's contracted for the [employer], you would have to contact his insurance for that information. Pls advise. Sarah Lewis [facility] 2024-02-12 11:30:00 Images from the original note were not included. Venipuncture collection performed by clean technique on the right anticubitus. Total of 1 attempts were made. Slight pressure and a bandage/dressing were applied to the site(s). The patient experienced no complications. The following specimens were processed according to instructions and sent to [facility] laboratories per lab order on 02/12/2024: LT BLUE SST 2 RED LAV 2 PPT DK GREEN (LiHep) 1 DK GREEN (SodH) ALMANZAR DK BLUE (K2) DK BLUE (S) ACD Blood Culture NIPT/NTD 1 light green T [facility] 2024-02-12 11:06:52 Associated Problem(s): Memory loss, short term Chronic. Stable Predominantly associated with short term memory First noticed after anoxic-brain injury episode in 2021 A1c 12/2023 - 11.4 MOCA 08/2023 - MMSE 01/2024 - Encouraged to quit smoking T [facility] 2024-01-26 09:25:03 Christopher Cruz Date: 02/12/2024 Status: Arrival Time: 9:45 AM Length: Visit Type: NEW VISIT (FIRST TIME) [53] Copay: Provider: Reji Ng MD Department: [facility] NE[facility] Pt has appointment scheduled with neurology. Suri Yousif RN [facility] 2024-01-22 09:46:51 Referral needs to come from PCP, attempted to call pt, vm not set up. [facility] 2024-01-15 14:23:38 Christopher Cruz is a 58 year old male is calling for a Referral to see Neurology. She has a future visit 02/12/24. Thank you Brooklynn Urieb [facility] 2024-01-08 11:45:00 Images from the original note were not included. Venipuncture collection performed by clean technique on the left anticubitus. Total of 1 attempts were made. Slight pressure and a bandage/dressing were applied to the site(s). The patient experienced no complications. The following specimens were processed according to instructions and sent to [facility] laboratories per lab order on 01/08/2024 : LT BLUE SST 1 RED LAV PPT DK GREEN (LiHep) DK GREEN (SodH) ALMANZAR DK BLUE (K2) DK BLUE (S) ACD Blood Culture NIPT/NTD Patient has been identified by and name and was provided with cup, antiseptic towelette, and clean catch instructions. 1 urine specimen(s) sent. Unpreserved 1 Urine Culture Aptima tube Other urine T [facility] 2023-10-05 09:21:58 Returned call, no answer, VM not set up. Please have pt schedule a f/u appt to discuss results if he calls again. Pt may schedule with Herminia Sánchez or Dr. Reddy. [facility] 2023-10-05 08:43:23 Christopher Cruz is a 58 year old male is calling with GAUTAM Montgomery and would like to know if MD Reddy was able to review MRI results. Please advise [phone] (home) Sofia Narayan [facility]
--- NOTE | 2024-04-20 14:19 | RAD REPORT ---
Exam:Foot Right 3 View CLINICAL HISTORY: Right foot pain FINDINGS: No fracture or dislocation seen Amputation portion second phalanx. Vascular consolidations. No radiopaque foreign body seen
--- NOTE | 2024-04-20 15:25 | ER ---
Nurse's Notes [facility] Name: Christopher Cruz Age: 58 yrs Sex: Male : 1965 Arrival Date: 04/20/2024 Time: 13:19 Bed 24 Private MD: Diagnosis: Open wound of toe without damage to nail-right great toe;Bitten by dog Presentation: 04/20 13:32 Chief complaint: Patient states: Dog chewed on R foot 1st digit 3 days ago. He didn't ll1 feel it due to neuropathy. Coronavirus screen: Client denies travel out of the [place] in the last 14 days. At this time, the client does not indicate any symptoms associated with coronavirus-19. Ebola Screen: Patient denies travel to an Ebola-affected area in the 21 days before illness onset. Initial Sepsis Screen: Does the patient meet any 2 criteria? No. Patient's initial sepsis screen is negative. Does the patient have a suspected source of infection? No. Patient's initial sepsis screen is negative. Risk Assessment: Do you want to hurt yourself or someone else? Patient reports no desire to harm self or others. Onset of symptoms was April 18, 2024. 13:32 Method Of Arrival: Ambulatory ll1 13:32 Acuity: MONICA 4 ll1 Triage Assessment: 13:32 General: Appears in no apparent distress. Behavior is calm, cooperative, appropriate ll1 for age. Pain: Denies pain. Derm: Reports dog chewed on R great toe. Historical: - Allergies: 13:29 No Known Allergies; ll1 - PMHx: 13:29 Diabetes - IDDM; Hypertension; neuropathy; ll1 13:34 Hypercholesterolemia; ll1 - PSHx: 13:34 R foot 2nd digit amputated; Cataract repair; ll1 - Immunization history:: Adult Immunizations up to date. - Infectious Disease History:: Denies. - Social history:: Smoking status: Patient reports the use of cigarette tobacco products, smokes one-half pack cigarettes per day, Reported history of juuling and/or vaping. Screenin:09 [facility] ED Fall Risk Assessment (Adult) History of falling in the last 3 months, me1 including since admission No falls in past 3 months (0 pts) Confusion or Disorientation No (0 pts) Intoxicated or Sedated No (0 pts) Impaired Gait No (0 pts) Mobility Assist Device Used No (0 pt) Altered Elimination No (0 pt) Score/Fall Risk Level 0 - 2 = Low Risk Maintained a safe environment, Provided non-skid footwear, Hourly rounding (assess needs \T\ fall precautionary measures) done. Abuse screen: Denies threats or abuse. Nutritional screening: No deficits noted. Tuberculosis screening: No symptoms or risk factors identified. Assessment: 15:40 General: Appears comfortable, well groomed, well developed, well nourished, Behavior is me1 calm, cooperative, appropriate for age, Reports Dog was chewing on right great toe but patient couldn't feel it due to neuropathy. Pain: Denies pain. Neuro: Level of Consciousness is awake, alert, obeys commands, Oriented to person, place, time, situation, Appropriate for age. Cardiovascular: Patient's skin is warm and dry. Respiratory: Airway is patent Respiratory effort is even, unlabored, Respiratory pattern is regular, symmetrical. GI: No signs and/or symptoms were reported involving the gastrointestinal system. : No signs and/or symptoms were reported regarding the genitourinary system. EENT: No signs and/or symptoms were reported regarding the EENT system. Derm: Skin is healthy with good turgor, Skin is pink, warm \T\ dry. Wound noted right first toe and Right first toenail Wound is multiple wounds to right great toe. Musculoskeletal: wounds to right great toe. Injury Description: dog chewed right great toe, patient unable to feel it due to neuropathy. 15:43 Reassessment: No changes from previously documented assessment. Patient and/or family ll1 updated on plan of care and expected duration. Pain level reassessed. Patient is alert, oriented x 3, equal unlabored respirations, skin warm/dry/pink. 16:09 General: [place] animal control at bedside. me1 Vital Signs: 13:32 BP 132 / 95; Pulse 92; Resp 17; Temp 97; Pulse Ox 100% ; Weight 95.25 kg; Height 5 ft. ll1 7 in. ; Pain 0/10; 16:25 BP 128 / 92; Pulse 87; Resp 16; Temp 98.4; Pulse Ox 100% ; me1 13:32 Body Mass Index 32.89 (95.25 kg, 170.18 cm) ll1 13:32 Pain Scale: Adult ll1 ED Course: 13:23 Patient arrived in ED. mr 13:29 Driss Ward PA is PHCP. cp 13:29 Driss Miller MD is Attending Physician. cp 13:29 Arm band placed on. ll1 13:33 Triage completed. ll1 13:53 XRAY Foot RIGHT 3 View In Process Unspecified. EDMS 15:42 Patient placed in an exam room, on a stretcher. ll1 15:46 Alaina Olivares, RN is Primary Nurse. me1 15:48 Nancy with [employer] contacted about dog bite. Sending an officer. ll1 16:09 Patient has correct armband on for positive identification. Bed in low position. Call me1 light in reach. Provided Education on: POC. Verbalized understanding.. 16:09 No provider procedures requiring assistance completed. Patient did not have IV access me1 during this emergency room visit. Administered Medications: 15:56 Drug: Amoxicillin-Clavulanate PO 875 mg PO once Route: PO; me1 16:33 Follow up: Response: No adverse reaction me1 15:56 Drug: Boostrix Tdap IM 0.5 ml IM once; as a single dose Route: IM; Site: left deltoid; me1 16:33 Follow up: Response: No adverse reaction me1 Medication: 16:09 Vaccine Information Statement (VIS) provided today. Questions and/or concerns me1 addressed. VIS edition date: January 04, 2021. Outcome: 15:24 Discharge ordered by MD. cp 16:25 Discharged to home ambulatory, with family, me1 16:25 Condition: stable 16:25 Discharge instructions given to patient, family, Instructed on discharge instructions, follow up and referral plans. medication usage, Demonstrated understanding of instructions, follow-up care, medications, Prescriptions given X 2, 16:33 Patient left the ED. me1 Signatures: Dispatcher [employer] EDAK Ophelia Avitia, Reg Reg mr Driss Ward PA PA cp Lewis, Lynsay, RN RN 1 Alaina Olivares, PETRA RN me1 Corrections: (The following items were deleted from the chart) 13:34 13:34 Social history: Smoking status: Patient reports the use of cigarette tobacco 1 products, smokes one-half pack cigarettes per day, ll1 15:48 13:32 Chief complaint: Patient states: Dog chewed on R foot 1st digit 3 days ago. He me1 didn't feel it due to neuropathy ll1
--- NOTE | 2024-04-20 15:25 | EDPHYS ---
Physician Documentation [facility] Name: Christopher Cruz Age: 58 yrs Sex: Male : 1965 Arrival Date: 04/20/2024 Time: 13:19 Bed 24 Private MD: ED Physician Driss Miller HPI: 04/20 13:35 This 58 yrs old Male presents to ER via Ambulatory with complaints of Dog cp Chewed toe. 13:35 Patient is a 58-year-old male with past medical history significant for cp insulin-dependent diabetes, hypertension, peripheral neuropathy who reports to the emergency department with dog bite to his right great toe. Patient reports injury occurred about 3 days ago in which he did not notice his pitbull dog chewing on his toe. Patient does not complain of any pain, denies any fevers, chills and/or sweats. Historical: - Allergies: 13:29 No Known Allergies; ll1 - PMHx: 13:29 Diabetes - IDDM; Hypertension; neuropathy; ll1 13:34 Hypercholesterolemia; ll1 - PSHx: 13:34 R foot 2nd digit amputated; Cataract repair; ll1 - Immunization history:: Adult Immunizations up to date. - Infectious Disease History:: Denies. - Social history:: Smoking status: Patient reports the use of cigarette tobacco products, smokes one-half pack cigarettes per day, Reported history of juuling and/or vaping. ROS: 13:38 MS/extremity: Positive for of the right great toe, dog bite, cp 13:38 Constitutional: Negative for body aches, chills, fever, cp 13:38 Neuro: Positive for numbness, of the right foot, cp 13:38 Eyes: Negative for injury, pain, redness, and discharge, cp 13:38 All other systems are negative, Exam: 13:40 Constitutional: The patient appears in no acute distress, alert, awake, non-toxic, well cp developed, well nourished, 13:40 Head/Face: Normocephalic, atraumatic. cp 13:40 Eyes: Periorbital structures: appear normal, Conjunctiva: normal, no exudate, no injection, Sclera: no appreciated abnormality, Lids and lashes: appear normal, bilaterally, 13:40 ENT: External ear(s): are unremarkable, Nose: is normal, Mouth: Lips: moist, Oral mucosa: moist, Posterior pharynx: Airway: no evidence of obstruction, patent, 13:40 Chest/axilla: Inspection: normal, 13:40 Cardiovascular: Rate: normal, 13:40 Respiratory: the patient does not display signs of respiratory distress, Respirations: normal, no use of accessory muscles, no retractions, 13:40 Abdomen/GI: Inspection: abdomen appears normal, 13:40 Musculoskeletal/extremity: Extremities: noted in the right first toe: multiple superficial wounds to distal end, plantar, medial and lateral side of great toe. nail intact, mild swelling, mild erythema, no active bleeding and no purulent discharge expressed, Perfusion: the extremity is normally perfused throughout, the right first toe numbness, Vital Signs: 13:32 BP 132 / 95; Pulse 92; Resp 17; Temp 97; Pulse Ox 100% ; Weight 95.25 kg; Height 5 ft. ll1 7 in. ; Pain 0/10; 16:25 BP 128 / 92; Pulse 87; Resp 16; Temp 98.4; Pulse Ox 100% ; me1 13:32 Body Mass Index 32.89 (95.25 kg, 170.18 cm) ll1 13:32 Pain Scale: Adult ll1 MDM: 13:31 Medical Screening Exam initiated macho 14:15 Differential diagnosis: fracture, osteomyelitis, cellulitis, sepsis. 15:23 Data reviewed: vital signs, nurses notes, radiologic studies, plain films, and as a result, I will discharge patient. 15:23 I considered the following discharge prescriptions or medication management in the emergency department Medications were administered in the Emergency Department. See MAR. Care significantly affected by the following chronic conditions: Diabetes, Hypertension, neuropathy. Counseling: I had a detailed discussion with the patient and/or guardian regarding the historical points, exam findings, and any diagnostic results supporting the discharge/admit diagnosis, radiology results, the need for outpatient follow up, a family practitioner, to return to the emergency department if symptoms worsen or persist or if there are any questions or concerns that arise at home. 04/20 13:33 Order name: XRAY Foot RIGHT 3 View; Complete Time: 14:29 cp 04/20 14:29 Interpretation: Report reviewed. 04/20 13:33 Order name: Wound Care; Complete Time: 16:06 cp 11/20 14:05 Order name: Misc. Order: notify animal control please; Complete Time: 15:51 cp Administered Medications: 15:56 Drug: Amoxicillin-Clavulanate PO 875 mg PO once Route: PO; me1 16:33 Follow up: Response: No adverse reaction me1 15:56 Drug: Boostrix Tdap IM 0.5 ml IM once; as a single dose Route: IM; Site: left deltoid; me1 16:33 Follow up: Response: No adverse reaction me1 Disposition Summary: 04/20/24 15:24 Discharge Ordered Notes: Location: Home cp Problem: new cp Symptoms: have improved cp Condition: Stable cp Diagnosis - Open wound of toe without damage to nail - right great toe cp - Bitten by dog cp Followup: cp - With: Private Physician - When: 1 week - Reason: Wound Recheck Discharge Instructions: - Discharge Summary Sheet cp - Wound Care, Adult cp - Animal Bite, Adult cp Forms: - Medication Reconciliation Form cp - Antibiotic Education cp - Prescription Opioid Use cp - Patient Portal Instructions cp - Leadership Thank You Letter cp Prescriptions: - mupirocin 2 % Topical ointment - apply 1 application TOPICAL route 2 to 3 times per day; 30 gram tube; Refills: cp 0, Product Selection Permitted - Augmentin 875-125 mg Oral Tablet - take 1 tablet ORAL route every 12 hours for 10 days; 20 tablet; Refills: 0, cp Product Selection Permitted Signatures: Dispatcher [employer] Driss Phillips MD MD cha Page, Corey, PA PA cp Lewis, Lynsay, RN RN ll1 Alaina Olivares RN RN me1 Corrections: (The following items were deleted from the chart) 13:34 13:34 Social history: Smoking status: Patient reports the use of cigarette tobacco ll1 products, smokes one-half pack cigarettes per day, ll1 14:09 13:28 MS/extremity: Positive for of the right great toe, dog bite, cp cp
[2024-04-20] MEDS ORDERED: AMOX/K CLAV 875 MG TAB ONE (15:52)
[2024-04-20] MEDS ORDERED: TDAP (DIPHTH,PERTUSS(ACELL),TET VAC) 0.5 ML VIAL IMVAC ONE (15:52)
[2024-04-20 16:59] VITALS: O2SAT 100
[2024-04-20 17:01] VITALS: BP 128/92; TEMP 98.4
== END 2024-04-20 16:33 | disposition home or self-care (01) ==
LOC: ER 13:19
DX: S91.101A Unspecified open wound of right great toe without damage to nail, initial encounter (principal); W54.0XXA Bitten by dog, initial encounter; F17.210 Nicotine dependence, cigarettes, uncomplicated
CPT/HCPCS: 96372; 99284

== ENCOUNTER 2024-09-15 14:59 | Emergency (ER) | payer OTHER ==
--- OUTSIDE RECORDS SUMMARY | 2024-09-15 15:03 | XMS REPORT | Continuity of Care Document ---
Author Name Unknown Address [address] [facility] [address] [place] [address] Organization [facility] [place] Address [address] [facility] [address] [place] [address] Care Team Providers Care Pharmacy Picking Tech Name Role Phone Pcp, Patient Does Not Have A Primary Care Physic marek Agustin Patel Attending Clinician Unavailable ESTHER RAY Attending Clinician Unavailable Esther Lam Attending Clinician [phone] JUDI MEI Attending Clinician Unavailable Campaigns, Generic Provider Attending Clinician Unavailable REJI NG Attending Clinician U REJI Armstrong Attending Clinician U iglesia Bosch [facility], Delma A Attending Clinician Unavail able Draw, Clc-[facility] Lab Attending Clinician UnavailReji Villasenor MD Attending Clinicia n JOSÉ GABRIEL Attending Clinician Unavailable Lab, Ang - Db Attending Clinician Unavailable MIGUEL REDDY Attending Clinician Unavail able MIGUEL REDDY Attending Clinician Unavail able Miguel Reddy MD Attending Clinician [phone] Juan Mcclendon DO Attending Clinician [phone] DELVIS SORENSEN Attending Clinician Unavailable Faith Donovan PTA K Attending Clinician Unavail able SHEA HERNANDEZ Attending Clinician Unavailable DIMAS BAKER Attending Clinician UnavailMIGUEL Smith Admitting Clinician Unavail able Payers Payer Name Policy Type Policy Number Effective Date Expirati on Date Source EDNA TRUE CHOICE MEDICARE [id number] 2023 00:00:00 [facility] DUAL COMPLETE HMO [id number] 2017 00:00:00 Problems Condition Name Condition Details Condition Category Status Onset Date Resolution Date Last Treatment Date Treating Clinician Comments Source Hypoxic brain injury Hypoxic brain injury Disease Active 02-11 00:00: 00 [facility] Memory loss, short term Memory loss, short term Disease Active 09-30 00:00: 00 Last Assessmen t & Plan: Formattin g of this note might be different from the original. Chronic. 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 Disease [facility] 2018-06 00:00: 00 [facility] Coronary arterioscl erosis Coronary arterioscl erosis Disease Active 01-13 00:00: 00 [facility] Diverticul osis of colon Diverticul osis of colon Disease Active 01-13 00:00: 00 [facility] Male hypogonadi sm Male hypogonadi sm Disease Active 01-13 00:00: 00 [facility] Localized edema due to fluid overload Localized edema due to fluid overload Disease Active 01-13 00:00: 00 [facility] Mixed hyperlipid emia Mixed hyperlipid emia Disease Active 01-13 00:00: 00 [facility] Obstructiv e sleep apnea syndrome Obstructiv e sleep apnea syndrome Disease Active 01-13 00:00: 00 [facility] Nonalcohol ic steatohepa titis (LOVE) Nonalcohol ic steatohepa titis (LOVE) Disease Active 01-13 00:00: 00 [facility] Peripheral arterial occlusive disease Peripheral arterial occlusive disease Disease Active 01-13 00:00: 00 [facility] Proteinuri a Proteinuri a Disease [facility] 01-13 00:00: 00 [facility] Stage 3a chronic kidney disease Stage 3a chronic kidney disease Disease Active 01-13 00:00: 00 [facility] Hyperkalem ia Hyperkalem ia Disease [facility] 01-13 00:00: 00 [facility] Cigarette smoker Cigarette smoker Disease Active 01-13 00:00: 00 [facility] Diabetes Diabetes Disease Active 08-03 00:00: 00 [facility] Type 2 diabetes mellitus with chronic kidney disease Type 2 diabetes mellitus with chronic kidney disease Disease [facility] 08-03 00:00: 00 [facility] Type 2 diabetes mellitus with chronic kidney disease Type 2 diabetes mellitus with chronic kidney disease Disease [facility] 08-03 00:00: 00 [facility] Dyslipidem ia Dyslipidem ia Disease Active 08-03 00:00: 00 [facility] Neuropathy Neuropathy Disease Active 08-03 00:00: 00 [facility] [id number] Essential hypertensi on Problem [facility] [id number] Impingemen t syndrome of right shoulder Problem [facility] [id number] Pain in joint of right shoulder Problem [facility] [id number] Subacromia l bursitis of right shoulder joint Problem [facility] [id number] Dementia with anxiety, unspecifie d dementia severity, unspecifie d dementia type Problem [facility] [id number] Pain in joint of right foot Problem [facility] [id number] Metatarsal jeanie, right foot Problem [facility] [id number] Type 2 diabetes mellitus with hyperglyce annette, without long-term current use of insulin Problem [facility] Allergies, Adverse Reactions, Alerts Allergy Name Allergy Type Status Severity Reaction(s) Onset Date Inactive Date Treating Clinician Comments Source AMLODIPI NE DRUG INGREDI Active Swelling 08-03 00:00: 00 [facility] Amlodipi ne Propensi ty to adverse reaction s Active Swelling 08-03 00:00: 00 [facility] NO KNOWN ALLERGIE S Drug Class Active [facility] Social History Social Habit Start Date Stop Date Quantity Comments Source [facility] of [facility] Use Current Smoker [facility] Sex Assigned At [facility] Tobacco use and exposure 2023-09-18 00:00:00 2023-09-18 00:00:00 Smokeless tobacco non-user [facility] History of Social function 2023-09-18 00:00:00 2023-09-18 00:00:00 [facility] Smoking Status Start Date Stop Date Source Smokes tobacco daily 2023-09-18 00:00:00 [facility] Medications Ordered Medication Name Filled Medication Name Start Date Stop Date Current Medication? Ordering Clinician Indication Dosage Frequency Signature (SIG) Comments Components Source blood sugar diagnostic (ACCU-CHEK GUIDE TEST STRIPS) strip 09-05 00:00: 00 Yes [id number] 9109 Use to check blood sugar TID [facility] Lancets (ACCU-CHEK SOFTCLIX LANCETS) [facility] 09-02 00:00: 00 Yes [id number] 9109 Use as directed [facility] Blood-Gluco se Meter (ACCU-CHEK GUIDE GLUCOSE METER) [facility] 09-02 00:00: 00 Yes [id number] 9109 Use as directed [facility] insulin lispro (HUMALOG KWIKPEN INSULIN) 100 unit/mL pen injector 09-02 00:00: 00 Yes [id number] 9109 12U inject 12 Units under the skin in the morning and 12 Units at noon and 12 Units in the evening. inject before meals. Please HALF dose if patient eats less than half meal OR if blood glucose 80 - 120 mg/dL, HOLD DOSE if BG < 80 . [facility] insulin degludec (TRESIBA FLEXTOUCH U-200) 200 unit/mL (3 mL) InPn 09-02 00:00: 00 Yes [id number] 9109 34U inject 34 Units under the skin at bedtime. Please HALF dose if patient eats less than half meal OR if blood glucose 80 - 120 mg/dL, HOLD DOSE if NPO or BG < 80 . 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 This is the initial dose. [facility] tirzepatide (MOUNJARO) 5 mg/0.5 mL subcutaneou s injection pem 2023-06 00:00: 00 09-02 00:00 :00 No [id number] 9109 5mg inject 5 mg under the skin weekly. Only take this dose after you have finished the 2.5 mg weekly dose [facility] lancets (ONETOUCH DELICA PLUS LANCET) 33 gauge Misc 2023-06 00:00: 00 09-02 00:00 :00 No [id number] 9109 Use as directed to check blood sugar 3 times a day for diagnosis of Type 2 DM, e11.65 [facility] insulin degludec (TRESIBA FLEXTOUCH U-200) 200 unit/mL (3 mL) InPn 2023-06 00:00: 00 09-02 00:00 :00 No [id number] 28U inject 28 Units under the skin at bedtime. Please HALF dose if patient eats less than half meal OR if blood glucose 80 - 120 mg/dL, HOLD DOSE if NPO or BG < 80 . [facility] insulin lispro (HUMALOG KWIKPEN INSULIN) 100 unit/mL pen injector 2023-06 00:00: 00 09-02 00:00 :00 No [id number] 9U inject 9 Units under the skin in the morning and 9 Units at noon and 9 Units in the evening. inject before meals. Please HALF dose if patient eats less than half meal OR if blood glucose 80 - 120 mg/dL, HOLD DOSE if BG < 80 . 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 [facility] insulin lispro protamin/li spro (HUMALOG MIX 75-25 KWIKPEN SC) 01-07 09:34: 56 01-07 00:00 :00 No inject under the skin. 25 units q am and 20 units q hs [facility] metFORMIN 1,000 mg tablet 01-07 00:00: 00 Yes [id number] 1000mg Take 1 tablet by mouth in the morning and 1 tablet in the evening. Take with meals. [facility] rosuvastati n 20 mg tablet 01-07 00:00: 00 Yes [id number] 20mg Take 1 tablet by mouth at bedtime. [facility] Blood-Gluco se Sensor (FREESTYLE HAYDEN 3 SENSOR) Natasha 01-07 00:00: 00 04-15 00:00 :00 No [id number] Use as directed every 2 weeks [facility] Blood-Gluco se Meter,Vitaliy vu (FREESTYLE HAYDEN 3 READER) Misc 01-07 00:00: 00 04-15 00:00 :00 No [id number] Use as directed [facility] insulin degludec (TRESIBA FLEXTOUCH U-200) 200 unit/mL (3 mL) InPn 01-07 00:00: 00 04-15 00:00 :00 No [id number] 28U inject 28 Units under the skin at bedtime. Please HALF dose if patient eats less than half meal OR if blood glucose 80 - 120 mg/dL, HOLD DOSE if NPO or BG < 80 . [facility] Insulin [place], Disposable, (RADHA PEN NEEDLE) 32 gauge x 5/32" Ndle 01-07 00:00: 00 04-15 00:00 :00 No [id number] USE TO INJECT INSULIN 4 TIMES DAILY, DX:E11.9 [facility] insulin lispro (HUMALOG KWIKPEN INSULIN) 100 unit/mL pen injector 01-07 00:00: 00 04-15 00:00 :00 No [id number] 9U inject 9 Units under the skin in the morning and 9 Units at noon and 9 Units in the evening. inject before meals. Please HALF dose if patient eats less than half meal OR if blood glucose 80 - 120 mg/dL, HOLD DOSE if NPO or BG < 80 . [facility] rosuvastati n 20 mg tablet 09-30 00:00: 00 01-07 00:00 :00 No 20mg Take 1 tablet by mouth at bedtime. [facility] gadoteridol (PROHANCE-2 0 mL) injection 0.2 mL/kg 09-24 21:15: 00 09-24 21:03 :00 No [id number] .2mL/kg 0.2 mL/kg, Intravenou s, ONCE, 1 dose, On Thu09/25/23 at 1615, Routine [facility] tiZANidine 4 mg tablet 09-17 10:02: 31 09-17 00:00 :00 No 4mg Take 1 tablet by mouth in the morning and 1 tablet in the evening. [facility] isosorbide mononitrate 30 mg 24 hr tablet 09-17 10:02: 16 09-17 00:00 :00 No 30mg Take 1 tablet by mouth. [facility] HYDROcodone -acetaminop hen (NORCO) 5-325 mg tablet 09-17 10:01: 51 09-17 00:00 :00 No 1{tbl} Take 1 tablet by mouth every 6 (six) hours as needed. [facility] furosemide (LASIX) 20 mg tablet 09-17 10:01: 35 09-17 00:00 :00 No 20mg Take 1 tablet by mouth in the morning. [facility] Cholecalcif nieves, Vitamin D3, (VITAMIN D3) 2,000 unit capsule 09-17 10:01: 07 09-17 00:00 :00 No Take by mouth. [facility] carvedilol 25 mg tablet 09-17 10:00: 58 09-17 00:00 :00 No 50mg Take 50 mg by mouth 2 (two) times daily with meals. [facility] aspirin 81 mg EC tablet 09-17 10:00: 39 09-17 00:00 :00 No 81mg Take 81 mg by mouth daily. [facility] foLIC acid 1 mg tablet 09-17 09:57: 17 Yes 1mg Take 1 tablet by mouth in the morning. [facility] metFORMIN 1,000 mg tablet 09-09 00:00: 00 10-10 04:59 :00 No 1000mg Take 1 tablet by mouth in the morning and 1 tablet in the evening. Take with meals. [facility] Diclofenac Sodium 1 % gel 08-01 00:00: 00 09-17 00:00 :00 No [id number] Apply to area(s) 2 (two) times daily as needed for Pain (scale 4-6) (Apply 2 g do not exceed 4 g in a day). [facility] blood sugar diagnostic (ONETOUCH VERIO) strip 07-13 00:00: 00 04-15 00:00 :00 No [id number] Use to check glucose 3X daily. DX:E11.40 [facility] lancets 33 gauge Misc 07-13 00:00: 00 04-15 00:00 :00 No [id number] Use as directed, TID, DX:E11.9 [facility] Insulin [place], Disposable, (RADHA PEN NEEDLE) 32 gauge x 5/32" Ndle 07-13 00:00: 00 01-07 00:00 :00 No [id number] USE TO INJECT INSULIN 4 TIMES DAILY, DX:E11.9 [facility] insulin glargine U-300 conc (TOUJEO SOLOSTAR U-300 INSULIN) 300 unit/mL (1.5 mL) InPn 07-13 00:00: 00 09-17 00:00 :00 No [id number] 66U inject 66 Units under the skin every morning. [facility] insulin lispro (HUMALOG KWIKPEN INSULIN) 100 unit/mL pen injector 07-13 00:00: 00 09-17 00:00 :00 No [id number] 12U inject 12 Units under the skin 3 (three) times daily before meals. [facility] dulaglutide (TRULICITY) 1.5 mg/0.5 mL PnIj 07-13 00:00: 00 09-17 00:00 :00 No [id number] 1.5mg inject 1.5 mg under the skin weekly. [facility] metformin ER 500 mg 24 hr tablet 07-13 00:00: 00 09-17 00:00 :00 No [id number] TAKE 1 TABLET BY MOUTH THREE TIMES DAILY WITH MEALS [facility] ROSUVASTATI N 40 mg tablet 02-21 00:00: 00 09-17 00:00 :00 No [id number] 40mg TAKE 1 TABLET BY MOUTH AT BEDTIME [facility] Depo Medrol (40mg) Depo Medrol (40mg) 11-04 00:00: [address] [facility] LIDOCAINE HCL 10MG/ML LIDOCAINE HCL 10MG/ML 11-04 00:00: [address] [facility] Folic Acid Folic Acid 09-20 00:00: 00 No 1{table t} QD Folic Acid metFORMIN HCl 500 MG metFORMIN HCl 500 [...] 30 MG Isosorbide Mononitrate ER 30 MG 4-22 00:00: 00 No 1{table t_in_th e_morni ng} QD Isosorbide Mononitrat e ER 30 MG FREESTYLE HAYDEN 10 DAY SENSOR Kit 2 00:00: 00 01-07 00:00 :00 No [id number] USE ONE EVERY 10 DAYS [facility] flash glucose scanning reader (FREESTYLE HAYDEN 10 DAY READER) [facility] 2017-06 00:00: 00 01-07 00:00 :00 No [id number] 1{each} 1 Each daily. [facility] Blood-Gluco se Meter Kit 08-03 00:00: 00 09-02 00:00 :00 No [id number] Use as directed, TID, DX:E11.9 [facility] OneTouch Verio - OneTouch Verio - [...] IM 6+ MO (FLUZONE/FLULAVAL/F LUARIX) Unknown Completed [facility] Influenza Virus Vaccine Quad .5 mL IM 6+ MO (FLUZONE/FLULAVAL/F LUARIX) Unknown Completed [facility] Influenza Virus Vaccine Quad .5 mL IM 6+ MO (FLUZONE/FLULAVAL/F LUARIX) Unknown Completed [facility] Influenza Virus Vaccine Quad .5 mL IM 6+ MO (FLUZONE/FLULAVAL/F LUARIX) Unknown Completed [facility] Influenza Virus Vaccine Quad .5 mL IM 6+ MO (FLUZONE/FLULAVAL/F LUARIX) Unknown Completed [facility] Influenza Virus Vaccine Quad .5 mL IM 6+ MO (FLUZONE/FLULAVAL/F LUARIX) Unknown Completed [facility] Fluarix (IIV3) - SDS - 0.5mL Fluarix (IIV3) - SDS - 0.5mL Unknown Completed [facility] Vital Signs Vital Name Observation Time Observation Value Comments S ource Systolic blood pressure 2024-09-02 20:33:00 145 mm[Hg] [facility] Diastolic blood pressure 2024-09-02 20:33:00 78 mm[Hg] [facility] Heart rate 2024-09-02 20:33:00 87 /min [facility] Respiratory rate 2024-09-02 20:33:00 18 /min [facility] Body height 2024-09-02 20:33:00 170.2 cm [facility] Body weight 2024-09-02 20:33:00 103.964 kg [facility] BMI 2024-09-02 20:33:00 35.90 kg/m2 [facility] Oxygen saturation in Arterial blood by Pulse oximetry 2024-09-02 20:33:00 97 /min [facility] height 2024-05-06 09:20:00 67 [in_i] Commo n [facility] weight 2024-05-06 09:20:00 233.4 [lb_av] Co mmon [facility] temperature 2024-05-06 09:20:00 97.1 [degF] Com mon [facility] bmi 2024-05-06 09:20:00 36.55 kg/m2 Comm on [facility] oximetry 2024-05-06 09:20:00 98 % Commo n [facility] respiratory rate 2024-05-06 09:20:00 16 /min [facility] Systolic blood pressure 2024-04-15 15:17:00 136 mm[Hg] [facility] Diastolic blood pressure 2024-04-15 15:17:00 72 mm[Hg] [facility] Heart rate 2024-04-15 15:17:00 90 /min [facility] Body height 2024-04-15 15:17:00 170.2 cm [facility] Body weight 2024-04-15 15:17:00 98.068 kg [facility] BMI 2024-04-15 15:17:00 33.86 kg/m2 [facility] Oxygen saturation in Arterial blood by Pulse oximetry 2024-04-15 15:17:00 96 /min [facility] height 2024-04-08 08:20:00 67 [in_i] Commo n [facility] weight 2024-04-08 08:20:00 214.4 [lb_av] Co mmon [facility] temperature 2024-04-08 08:20:00 97.0 [degF] Com mon [facility] bmi 2024-04-08 08:20:00 33.58 kg/m2 Comm on [facility] oximetry 2024-04-08 08:20:00 96 % Commo n [facility] respiratory rate 2024-04-08 08:20:00 16 /min [facility] blood pressure systolic 2024-04-08 08:20:00 109 mm[Hg] [facility] blood pressure diastolic 2024-04-08 08:20:00 61 mm[Hg] [facility] height 2024-03-25 11:00:00 67 [in_i] Commo n [facility] weight 2024-03-25 11:00:00 213.8 [lb_av] Co mmon [facility] temperature 2024-03-25 11:00:00 98.0 [degF] Com mon [facility] bmi 2024-03-25 11:00:00 33.48 kg/m2 Comm on [facility] oximetry 2024-03-25 11:00:00 99 % Commo n [facility] respiratory rate 2024-03-25 11:00:00 16 /min [facility] blood pressure systolic 2024-03-25 11:00:00 134 mm[Hg] [facility] blood pressure diastolic 2024-03-25 11:00:00 72 mm[Hg] [facility] Systolic blood pressure 2024-02-12 14:54:00 123 mm[Hg] [facility] Diastolic blood pressure 2024-02-12 14:54:00 73 mm[Hg] [facility] Heart rate 2024-02-12 14:54:00 82 /min [facility] Body height 2024-02-12 14:54:00 170.2 cm [facility] Body weight 2024-02-12 14:54:00 97.705 kg [facility] BMI 2024-02-12 14:54:00 33.74 kg/m2 [facility] Oxygen saturation in Arterial blood by Pulse oximetry 2024-02-12 14:54:00 97 /min [facility] Systolic blood pressure 2024-01-08 14:00:00 133 mm[Hg] [facility] Diastolic blood pressure 2024-01-08 14:00:00 82 mm[Hg] [facility] Heart rate 2024-01-08 14:00:00 82 /min [facility] Respiratory rate 2024-01-08 14:00:00 18 /min [facility] Body height 2024-01-08 14:00:00 170.2 cm [facility] 2024-01-08 14:00:00 99.882 kg [facility] BMI 2024-01-08 14:00:00 34.49 kg/m2 [facility] Oxygen saturation in Arterial blood by Pulse oximetry 2024-01-08 14:00:00 99 /min [facility] Systolic blood pressure 2023-11-20 19:33:00 138 mm[Hg] [facility] Diastolic blood pressure 2023-11-20 19:33:00 70 mm[Hg] [facility] Heart rate 2023-11-20 19:33:00 89 /min [facility] Respiratory rate 2023-11-20 19:33:00 18 /min [facility] Body height 2023-11-20 19:33:00 170.2 cm [facility] Body weight 2023-11-20 19:33:00 98.612 kg [facility] BMI 2023-11-20 19:33:00 34.05 kg/m2 [facility] Oxygen saturation in Arterial blood by Pulse oximetry 2023-11-20 19:33:00 96 /min [facility] Systolic blood pressure 2023-09-18 14:54:00 135 mm[Hg] [facility] Diastolic blood pressure 2023-09-18 14:54:00 69 mm[Hg] [facility] Heart rate 2023-09-18 14:54:00 89 /min [facility] Respiratory rate 2023-09-18 14:54:00 18 /min [facility] Body height 2023-09-18 14:54:00 170.2 cm [facility] Body weight 2023-09-18 14:54:00 97.07 kg [facility] BMI 2023-09-18 14:54:00 33.52 kg/m2 [facility] Oxygen saturation in Arterial blood by Pulse oximetry 2023-09-18 14:54:00 98 /min [facility] Procedures Procedure Date / Time Performed Performing Clinicia n Source POCT HEMOGLOBIN A1C TEST 2024-09-02 20:28:00 Esther Ray [facility] POCT HEMOGLOBIN A1C TEST 2024-01-08 14:16:00 Esther Ray [facility] MR BRAIN W WO CONTRAST 2023-09-25 21:05:00 Madhu Reddy Gene [facility] Encounters Start Date/Time End Date/Time Encounter Type Admission Type Attending Clinicians Care Facility Care Department Encounter ID Source 2024-03-25 09:27:01 [facility] [id number] [facility] 2024-09-05 00:00:00 2024-09-05 08:44:53 Telephone [facility] KYLEE?[facility] [id number] [facility] 2024-09-02 15:30:00 2024-09-02 16:36:34 Outpatient R FLOR [facility] [id number] [facility] 2024-09-02 15:30:00 2024-09-02 16:36:34 Office Visit [facility] KYLEE?[facility] [id number] [facility] 2024-08-19 00:00:00 2024-08-22 10:15:59 Telephone Sheldonelianaluis angel [facility] KYLEE?[facility] [id number] [facility] 2024-07-22 15:00:00 2024-07-22 15:00:00 [facility] [id number] 2024-06-27 00:00:00 2024-06-27 10:10:28 Telephone Esther Ray [facility] [facility]E?[facility] 1.2.840.114 350.1.13.10 4.2.7.2.686 [id number] [facility] 2024-06-09 00:00:00 2024-06-09 10:09:00 Letter (Out) Campaigns, Generic Provider Campaigns, Generic Provider [facility] 1.2.840.114 350.1.13.10 4.2.7.2.686 [id number] [facility] 2024-05-20 09:00:00 2024-05-20 09:00:00 Outpatient R REJI SIERRA JORGE [facility] [id number] [facility] 2024-05-10 00:00:00 2024-05-10 13:13:12 Telephone Delma Bosch Khushbu A [facility] 1.2.840.114 350.1.13.10 4.2.7.2.686 [id number] [facility] 2024-05-06 00:00:00 2024-05-06 00:00:00 OFFICE VISIT ESTAB PT LEVEL 4 STLMLC STLMLC [id number] [facility] 2024-04-20 11:00:00 2024-04-20 11:00:00 Outpatient R [facility] [id number] [facility] 2024-04-15 09:30:00 2024-04-15 10:11:41 Outpatient R ESTHER RAY [facility] [id number] [facility] 2024-04-15 09:30:00 2024-04-15 10:11:41 Office Visit Esther Ray [facility] 1.2.840.114 350.1.13.10 4.2.7.2.686 [id number] [facility] 2024-04-08 00:00:00 2024-04-08 00:00:00 OFFICE VISIT ESTAB PT LEVEL 4 STLMLC STLMLC [id number] [facility] 2024-04-08 00:00:00 2024-04-08 00:00:00 (TEL) STLMLC STLMLC [id number] [facility] 2024-03-26 00:00:00 2024-03-26 00:00:00 (TEL) STLMLC STLMLC [id number] [facility] 2024-03-25 00:00:00 2024-03-25 00:00:00 OFFICE VISIT NEW PT LEVEL [id number] [facility] 2024-03-10 00:00:00 2024-03-10 10:27:37 Telephone Esther Ray [facility] 1.2.840.114 350.1.13.10 4.2.7.2.686 [id number] [facility] 2024-02-12 11:30:00 2024-02-12 11:45:00 [employer]ographic [employer] Plate Setter Visit Draw, [facility] Lab Reji Sierra, [facility] Lab [facility] 1..840.114 350.1.13.10 4.2.7.2.686 [id number] [facility] 2024-02-12 10:00:00 2024-02-12 11:00:00 Office Visit Reji Sierra [facility] 1.2.840.114 350.1.13.10 4.2.7.2.686 [id number] [facility] 2024-02-12 10:00:00 2024-02-12 10:00:00 Outpatient R REJI SIERRA JORGE [facility] [id number] [facility] 2024-01-15 00:00:00 2024-01-26 09:28:01 [facility] 1..840.114 350.1.13.10 4.2.7.2.686 [id number] [facility] 2024-01-13 00:00:00 2024-01-13 17:20:13 Letter (Out) [facility] 1..840.114 350.1.13.10 4.2.7.2.686 [id number] [facility] 2024-01-12 09:30:00 2024-01-12 09:30:00 Outpatient R JOSÉ GABRIEL [facility] [id number] [facility] 2024-01-08 11:45:00 2024-01-08 12:00:00 [employer] Plate Setter Visit Lab, Esther [facility] Lab, Osorio Cabezas [facility] 1..840.114 350.1.13.10 4.2.7.2.686 [id number] [facility] 2024-01-08 11:45:00 2024-01-08 10:54:10 Outpatient R ESTHER RAY [facility] [id number] [facility] 2024-01-08 09:00:00 2024-01-08 09:54:11 Office Visit Esther Ray [facility] 1.2.840.114 350.1.13.10 4.2.7.2.686 [id number] [facility] 2023-11-20 14:40:00 2023-11-20 15:23:07 Outpatient MIGUEL VANCE HOWARD [facility] [id number] [facility] 2023-11-20 14:40:00 2023-11-20 15:23:07 Office Visit MaureenMiguel [facility] 1.2.840.114 350.1.13.10 4.2.7.2.686 [id number] [facility] 2023-10-08 00:00:00 2023-10-08 08:41:46 Letter (Out) Juan Mcclendon [facility] 1.2.840.114 350.1.13.10 4.2.7.2.686 [id number] [facility] 2023-10-05 00:00:00 2023-10-05 00:00:00 Telephone Miguel Reddy [facility] 1.2.840.114 350.1.13.10 4.2.7.2.686 [id number] [facility] 2023-09-25 15:01:20 2023-09-25 23:59:00 Outpatient MIGUEL VANCE HOWARD [facility] [id number] [facility] 2023-09-25 15:00:00 2023-09-25 23:59:00 Hospital Encounter Miguel Reddy [facility] 1.2.840.114 350.1.13.10 4.2.7.2.686 [id number] [facility] 2023-09-25 00:00:00 2023-09-25 00:00:00 Outpatient MIGUEL VANCE HOWARD [facility] [id number] [facility] 2023-09-18 10:00:00 2023-09-18 10:51:29 Outpatient MIGUEL VANCE HOWARD [facility] [id number] [facility] 2023-09-18 10:00:00 2023-09-18 10:51:29 Office Visit MaureenMiguel l[facility] 1.2.840.114 350.1.13.10 4.2.7.2.686 [id number] [facility] 2019-10-25 11:30:00 2019-10-25 11:30:00 Outpatient DELVIS DYKES [facility] [id number] [facility] 2019-07-28 15:09:42 2019-08-04 11:48:49 Ancillary Visit Faith Donovan [facility] nal Building 1.2.840.114 350.1.13.10 4.2.7.2.686 [id number] 2019-08-02 16:00:00 2019-08-02 16:00:00 Outpatient SHEA MISHRA [facility] [id number] [facility] 2019-07-26 11:20:00 2019-07-26 11:20:00 Outpatient DIMAS CARRERA [facility] [id number] [facility] 2019-06-08 00:00:00 2019-06-08 23:59:00 Outpatient DIMAS CARRERA [facility] [id number] [facility] 2019-05-30 15:18:43 2019-05-30 23:59:00 Outpatient DIMAS BAKER [facility] [id number] [facility] Results Test Description Test Time Test Comments Results Result Co mments Source [id number]:00:00* Test Item Value Reference Range Interpretation Comme [facility] A1C (test code = 4548-4) 13.3 POCT Hemoglobin A1C [id number] 14:16:00* Test Item Value Reference Range Interpretation Comme [facility] POCT HBA1C (test code = 4548-4) 11.4 % 4-6 A Lab Interpretation (test cod e = [id number]) Abnormal [facility] [id number] 21:48:02MR BRAIN W WO CONTRAST PROVIDED INDICATION: [...] intracranial vessels are unremarkable. Nosuspicious marrow signal. [facility] Notes Date/Time Note Provider Source 2024-09-05 08:44:41 Clarification sent to pharmacy. T [facility] Replenish 2024-09-05 08:02:39 Patients spouse is calling in requesting for MD to send clarification to pharmacy for how many times daily pt will need to use blood sugar diagnostic (ACCU-CHEK GUIDE TEST STRIPS) strip in order for insurance to approve.Please advise [facility] [address] [place] [id number] T Ilia Narayan [facility] 2024-08-22 10:15:35 Closing encounter until patient contact. Suri Yousif RN [facility] 2024-08-19 15:54:27 LM for patient to call back due to the strips we have on file being Onetouch. [facility] 2024-08-19 15:02:35 Christopher Vega is a 59 year old male Patient is calling because he was sent the wrong test strips and is needing the correct ones sent over. Patient was not able to identify the correct strips. Possibly onetouch verio LIF. Please advise. [phone] (home) Nona Oden [facility] 2024-06-27 10:10:15 Refill has been sent to pharmacy on file. Future Appointments Date Type Provider Dept 07/22/24 Appointment Esther Ray AGPCNP Ang- Endocrinology Showing future appointments within next 150 days with a meds authorizing provider and meeting all other requirements [facility] 2024-06-27 09:51:19 Christopher Vega is a 59 year old male Pt's is requesting refills on blood sugar diagnostic (ONETOUCH VERIO TEST STRIPS) strip and Insulin [place], Disposable, (BD INSULIN PEN NEEDLE UF) 31 gauge x 5/16" Ndle . Pharmacy states there are no refills Please advise [facility] [address] [place] [address] [id number] [facility] 2024-05-11 08:54:25 CLINICAL PHARMACY ENDOCRINOLOGY VISIT Christopher Vega is a 58 year old male referred to PharmD by TRESSA Ugarte for medication management for type 2 diabetes. At last visit, patient was instructed to: Start Moujaro 2.5mg weekly Continue metformin 1000mg twice daily Continue Jardiance 25mg daily Continue Humalog 9 units three times daily Continue Tresiba 28 units at bedtime 05/11/24: Attempt #4 to reach patient. Unable to reach patient. Left voicemail with callback number. Will sign off due to multiple unsuccessful attempts to reach patient. Please re-consult if PharmD services are required in the future. Thank you. Delma Bosch, PharmD, [facility] Pharmacy Clinical Electrical Systems Design Engineer- Endocrinology E Bosch [facility] 2024-05-10 13:11:50 CLINICAL PHARMACY ENDOCRINOLOGY VISIT Christopher Vega is a 58 year old male referred to PharmD by TRESSA Ugarte for medication management for type 2 diabetes. At last visit, patient was instructed to: Start Moujaro 2.5mg weekly Continue metformin 1000mg twice daily Continue Jardiance 25mg daily Continue Humalog 9 units three times daily Continue Tresiba 28 units at bedtime 05/10/24: Unable to reach patient (x3). Left voicemail with callback number. Will try again tomorrow. Anderson Armas, PharmD Candidate 2024 [facility] [employer] E Bosch [facility] 2024-03-10 09:35:05 [employer] states that she's returning a call from the nurse. She states that she doesn't know who's contracted for the [employer], you would have to contact his insurance for that information. Pls advise. Sarah Lewis [facility] 2024-02-12 11:30:00 Images from the original note were not included. Venipuncture collection performed by clean technique on the right anticubitus. Total of 1 attempts were made. Slight pressure and a bandage/dressing were applied to the site(s). The patient experienced no complications. The following specimens were processed according to instructions and sent to [facility] laboratories per lab order on 02/12/2024: LT BLUE SST 2 RED LAV 2 PPT DK GREEN (LiHep) 1 DK GREEN (SodH) ALMANZAR DK BLUE (K2) DK BLUE (S) ACD Blood Culture NIPT/NTD 1 light green [facility] 2024-02-12 11:06:52 Associated Problem(s): Memory loss, short term Chronic. 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 Suri Yousif RN [facility] 2024-01-22 09:46:51 Referral needs to come from PCP, attempted to call pt, vm not set up. T [facility] 2024-01-15 14:23:38 Christopher Vega is a 58 year old male is calling for a Referral to see Neurology. She has a future visit 02/12/24. Thank you Brooklynn Uribe [facility] 2024-01-08 11:45:00 Images from the original note were not included. Venipuncture collection performed by clean technique on the left anticubitus. Total of 1 attempts were made. Slight pressure and a bandage/dressing were applied to the site(s). The patient experienced no complications. The following specimens were processed according to instructions and sent to [facility] laboratories per lab order on 01/08/2024 : LT BLUE SST 1 RED LAV PPT DK GREEN (LiHep) DK GREEN (SodH) ALMANZAR DK BLUE (K2) DK BLUE (S) ACD Blood Culture NIPT/NTD Patient has been identified by and name and was provided with cup, antiseptic towelette, and clean catch instructions. 1 urine specimen(s) sent. Unpreserved 1 Urine Culture Aptima tube Other urine T [facility] 2023-10-05 09:21:58 Returned call, no answer, VM not set up. Please have pt schedule a f/u appt to discuss results if he calls again. Pt may schedule with Herminia Sánchez or Dr. Reddy. T [facility] 2023-10-05 08:43:23 Christopher Vega is a 58 year old male is calling with [facility]UT[facility] [place] and would like to know if MD Reddy was able to review MRI results. Please advise [phone] (home) Sofia Narayan [facility]
[2024-09-15] MEDS ORDERED: ALBUTEROL 2.5 MG/3 ML NEB SOL ONE (15:38)
[2024-09-15] MEDS ORDERED: HYDROCODONE/CHLORPHEN 5 ML/OSYR ONE (15:38)
[2024-09-15] MEDS ORDERED: IPRATROPIUM BROM 0.5MG/2.5ML ONE (15:39)
--- NOTE | 2024-09-15 15:42 | RAD REPORT ---
EXAMINATION: TWO VIEW CHEST XR CLINICAL INDICATION: COUGH TECHNIQUE: 2 views of the chest was performed. COMPARISON: No prior exam. FINDINGS: Mild linear opacities in both lung bases likely represent mild infiltrate/developing pneumonia. The l ungs are otherwise clear. The heart is upper limit of normal in size. No displaced fractures evident.
[2024-09-15 16:02] LABS: Influenza A Ag Negative; Influenza B Ag Negative; SARS-CoV-2 Antigen Rapid Res Negative (Negative)
--- NOTE | 2024-09-15 16:53 | ER ---
Nurse's Notes [facility] Name: Christopher Cruz Age: 59 yrs Sex: Male : 1965 Arrival Date: 09/15/2024 Time: 14:59 Bed 12 Private MD: Diagnosis: Pneumonia due to other specified infectious organisms Presentation: 09/15 15:12 Chief complaint: Patient states: has a lot of chest congestion and coughing , for 2 iw days, got worse last night and this morning he vomited. Coronavirus screen: Client presents with at least one sign or symptom that may indicate coronavirus-19. Ebola Screen: No symptoms or risks identified at this time. Initial Sepsis Screen: Does the patient meet any 2 criteria? No. Patient's initial sepsis screen is negative. Does the patient have a suspected source of infection? No. Patient's initial sepsis screen is negative. Risk Assessment: Do you want to hurt yourself or someone else? Patient reports no desire to harm self or others. Onset of symptoms was September 13, 2024. 15:12 Method Of Arrival: Ambulatory iw 15:12 Acuity: MONICA 3 iw Historical: - Allergies: 15:14 No Known Allergies; iw - PMHx: 15:13 Diabetes - IDDM; Hypercholesterolemia; Hypertension; neuropathy; iw - PSHx: 15:13 cataract repair; R foot 2nd digit amputated; iw - Immunization history:: Adult Immunizations up to date. - Social history:: Smoking status: Patient reports the use of cigarette tobacco products, smokes one pack cigarettes per day. Reported history of juuling and/or vaping. Assessment: 15:50 Reassessment: Patient is alert, oriented x 3, equal unlabored respirations, skin aa5 warm/dry/pink. 17:11 Reassessment: Patient is alert, oriented x 3, equal unlabored respirations, skin aa5 warm/dry/pink. 17:45 Reassessment: Patient is alert, oriented x 3, equal unlabored respirations, skin aa5 warm/dry/pink. Vital Signs: 15:12 BP 134 / 68; Pulse 95; Resp 20; Temp 98.6; Pulse Ox 96% on R/A; Weight 95.25 kg; Height iw 5 ft. 7 in. ; 15:12 Body Mass Index 32.89 (95.25 kg, 170.18 cm) ED Course: 15:02 Patient arrived in ED. im 15:05 Driss Ward PA is PHCP. cp 15:05 Inessa Bosch MD is Attending Physician. cp 15:13 Triage completed. iw 15:15 Arm band placed on. iw 15:22 Cherri Garcia, RN is Primary Nurse. iw 15:25 COVID-19 Ag + Flu A+B Ag Sent. iw 15:25 Group A Streptococcus Rapid Sent. iw 15:41 XRAY Chest Pa And Lat (2 Views) In Process Unspecified. EDMS Administered Medications: 15:50 Drug: Albuterol Inhalation 2.5 mg Inhalation once Route: Inhalation; aa5 15:50 Drug: Ipratropium Inhalation Aerosol 0.5 mg Inhalation once Route: Inhalation; aa5 15:50 Drug: Tussionex Pennkinetic ER PO Suspension 5 ml PO once Route: PO; aa5 17:11 Follow up: Response: No adverse reaction aa5 17:11 Drug: AZITHromycin PO 500 mg PO once Route: PO; aa5 17:45 Follow up: Response: No adverse reaction aa5 17:11 Drug: Amoxicillin-Clavulanate PO 875 mg PO once Route: PO; aa5 17:45 Follow up: Response: No adverse reaction aa5 Outcome: 16:52 Discharge ordered by MD. cp 17:45 Discharged to home ambulatory, with significant other, aa5 17:45 Condition: stable 17:45 Discharge instructions given to patient, Instructed on discharge instructions, follow up and referral plans. medication usage, Demonstrated understanding of instructions, follow-up care, medications, Prescriptions given X 4, 17:47 Patient left the ED. aa5 Signatures: Dispatcher [employer] EDMS Cherri Garcia, RN RN Mariza Holden RN RN aa5 Driss Ward PA PA cp Mendoza, Itzel im
--- NOTE | 2024-09-15 16:53 | EDPHYS ---
Physician Documentation [facility] Name: Christopher Cruz Age: 59 yrs Sex: Male : 1965 Arrival Date: 09/15/2024 Time: 14:59 Bed 12 Private MD: ED Physician Inessa Bosch HPI: 09/15 15:20 This 59 yrs old Male presents to ER via Ambulatory with complaints of Chest cp Congestion, Cough. 15:20 The patient or guardian reports cough, with productive sputum, chest congestion. cp 15:20 Onset: The symptoms/episode began/occurred 2 day(s) ago. Associated signs and symptoms: cp Pertinent positives: chest pain, with cough, 1 episode of vomiting, Pertinent negatives: diarrhea, fever. Severity of symptoms: in the emergency department the symptoms are unchanged despite home interventions. Historical: - Allergies: 15:14 No Known Allergies; iw - PMHx: 15:13 Diabetes - IDDM; Hypercholesterolemia; Hypertension; neuropathy; iw - PSHx: 15:13 cataract repair; R foot 2nd digit amputated; iw - Immunization history:: Adult Immunizations up to date. - Social history:: Smoking status: Patient reports the use of cigarette tobacco products, smokes one pack cigarettes per day. Reported history of juuling and/or vaping. ROS: 15:25 Constitutional: Negative for body aches, chills, fever, poor PO intake, cp 15:25 Eyes: Negative for injury, pain, redness, and discharge, cp 15:25 ENT: Positive for sore throat, Negative for drainage from ear(s), ear pain, difficulty swallowing, difficulty handling secretions, 15:25 Cardiovascular: Positive for chest pain, with cough, Negative for edema, palpitations, 15:25 Respiratory: Positive for cough, "sounds productive", 15:25 Abdomen/GI: Negative for abdominal pain, vomiting, diarrhea, constipation, 15:25 Neuro: Negative for altered mental status, dizziness, headache, numbness, syncope, near syncope, weakness, 15:25 All other systems are negative, Exam: 15:30 Constitutional: The patient appears in no acute distress, alert, awake, cp non-diaphoretic, non-toxic, well developed, well nourished, 15:30 Head/Face: Normocephalic, atraumatic. cp 15:30 Eyes: Periorbital structures: appear normal, Conjunctiva: normal, no exudate, no injection, Sclera: no appreciated abnormality, Lids and lashes: appear normal, bilaterally, 15:30 ENT: External ear(s): are unremarkable, Nose: is normal, Mouth: Lips: moist, Oral mucosa: moist, Posterior pharynx: Airway: no evidence of obstruction, patent, Tonsils: no enlargement, no exudate, erythema, is not appreciated, exudate, is not appreciated, 15:30 Neck: ROM/movement: Meningeal signs: are not present, nuchal rigidity, is not appreciated, Lymph nodes: no appreciated lymphadenopathy, 15:30 Chest/axilla: Inspection: normal, 15:30 Cardiovascular: Rate: normal, Rhythm: regular, Edema: is not appreciated, JVD: is not appreciated, 15:30 Respiratory: the patient does not display signs of respiratory distress, Respirations: cp normal, no use of accessory muscles, no retractions, labored breathing, is not present, Breath sounds: decreased breath sounds, are not appreciated, stridor, is not appreciated, + upper airway congestion. wheezing: is not appreciated, 15:30 Abdomen/GI: Inspection: obese Palpation: abdomen is soft and non-tender, in all cp quadrants, 15:30 Neuro: Orientation: to person, place \\T\\ time. Mentation: is normal, Motor: moves all fours, strength is normal, Vital Signs: 15:12 BP 134 / 68; Pulse 95; Resp 20; Temp 98.6; Pulse Ox 96% on R/A; Weight 95.25 kg; Height iw 5 ft. 7 in. ; 15:12 Body Mass Index 32.89 (95.25 kg, 170.18 cm) iw MDM: 15:12 Medical Screening Exam initiated cp 15:45 Differential diagnosis: bronchitis, flu, pneumonia, sepsis. 16:52 Data reviewed: vital signs, nurses notes, lab test result(s), radiologic studies, plain cp films, and as a result, I will discharge patient. 16:52 I considered the following discharge prescriptions or medication management in the emergency department Medications were administered in the Emergency Department. See MAR. Care significantly affected by the following chronic conditions: Diabetes, Hypertension, Obesity. Counseling: I had a detailed discussion with the patient and/or guardian regarding the historical points, exam findings, and any diagnostic results supporting the discharge/admit diagnosis, lab results, radiology results, the need for outpatient follow up, a family practitioner, to return to the emergency department if symptoms worsen or persist or if there are any questions or concerns that arise at home. Response to treatment: the patient's symptoms have mildly improved after treatment, and as a result, I will discharge patient. 09/15 15:16 Order name: COVID-19 Ag + Flu A+B Ag; Complete Time: 16:24 cp 09/15 16:24 Interpretation: Reviewed. cp 09/15 15:16 Order name: RSV Ag cp 09/15 15:16 Order name: Group A Streptococcus Rapid; Complete Time: 15:52 cp 09/15 15:52 Interpretation: Reviewed. cp 09/15 15:54 Order name: Throat Culture EDMS 09/15 15:16 Order name: XRAY Chest Pa And Lat (2 Views); Complete Time: 15:52 cp 09/15 15:52 Interpretation: Report reviewed. cp Administered Medications: 15:50 Drug: Albuterol Inhalation 2.5 mg Inhalation once Route: Inhalation; aa5 15:50 Drug: Ipratropium Inhalation Aerosol 0.5 mg Inhalation once Route: Inhalation; aa5 15:50 Drug: Tussionex Pennkinetic ER PO Suspension 5 ml PO once Route: PO; aa5 17:11 Follow up: Response: No adverse reaction aa5 17:11 Drug: AZITHromycin PO 500 mg PO once Route: PO; aa5 17:45 Follow up: Response: No adverse reaction aa5 17:11 Drug: Amoxicillin-Clavulanate PO 875 mg PO once Route: PO; aa5 17:45 Follow up: Response: No adverse reaction aa5 Disposition Summary: 09/15/24 16:52 Discharge Ordered Notes: Location: Home cp Problem: new cp Symptoms: have improved cp Condition: Stable cp Diagnosis - Pneumonia due to other specified infectious organisms cp Followup: cp - With: Private Physician - When: 2 - 3 days - Reason: Recheck today's complaints Discharge Instructions: - Discharge Summary Sheet cp - Community-Acquired Pneumonia, Adult cp Forms: - Medication Reconciliation Form cp - Antibiotic Education cp - Prescription Opioid Use cp - Patient Portal Instructions cp - Leadership Thank You Letter cp Prescriptions: - Bromfed DM 2-30-10 mg/5 mL Oral syrup - administer 10 milliliter ORAL route every 6-8 hours as needed for cough; 240 cp milliliter; Refills: 0, Product Selection Permitted - albuterol sulfate 90 mcg/actuation Inhalation HFA Aerosol Inhaler - inhale 1 inhalation INHALATION route every 4 to 6 hours as needed for cp bronchospasm; administer via ventilator; 1 unit; Refills: 0, Product Selection Permitted - Augmentin 875-125 mg Oral Tablet - take 1 tablet ORAL route every 12 hours for 10 days; 20 tablet; Refills: 0, cp Product Selection Permitted - Zithromax Z-Alfredo 250 mg Oral Tablet - take 1 tablet ORAL route as directed for 5 days Day 1 - take two (2) tablets cp one time. Day 2, 3, 4 , 5 take one (1) tablet once daily.; 6 tablet; Refills: 0, Product Selection Permitted Signatures: Dispatcher [employer] Cherri Balbuena RN RN iw Calderon, Audri, RN RN aa5 Driss Ward PA PA cp Corrections: (The following items were deleted from the chart) 16:51 15:30 Cardiovascular: Rate: normal, Rhythm: regular, cp cp 09/16 14:07 09/15 15:30 Cardiovascular: Rate: normal, Rhythm: regular, Edema: is not appreciated, cp JVD: is not appreciated, cp
[2024-09-15] MEDS ORDERED: AMOX/K CLAV 875 MG TAB ONE (17:00)
[2024-09-15] MEDS ORDERED: AZITHROMYCIN 250 MG TAB ONE (17:01)
[2024-09-15 17:51] VITALS: BP 134/68; TEMP 98.6; O2SAT 96
== END 2024-09-15 17:47 | disposition home or self-care (01) ==
LOC: ER 14:59
DX: J16.8 Pneumonia due to other specified infectious organisms (principal); F17.210 Nicotine dependence, cigarettes, uncomplicated; Z11.52 Encounter for screening for COVID-19
CPT/HCPCS: 87070; 36415; 71046; 87428; J7613; J7644